=== PATIENT | female | born 1955 | race Caucasian/White ===

== ENCOUNTER 2017-07-12 18:05 | Emergency (ER) | payer MEDICARE, MEDICAID ==
[2017-07-12] MEDS ORDERED: methylPREDNISolone 125 MG* 2 ML VIAL IV ONE (18:50)
[2017-07-12] MEDS ORDERED: Albuterol/Ipratropium NEB.SOL* Albuterol 2.5 MG/Ipratropium 0.5 MG 3 ML INH ONE (18:50)
[2017-07-12 19:14] LABS: ABS Basophils 0 10^3/ul (0-0.2); ABS Eosinophils 0.3 10^3/ul (0-0.6); ABS Monocytes 0.6 10^3/ul (0-0.8); ABS Neutrophils 2.8 10^3/ul (1.5-7.7); ABS Nucleated RBC 0 10^3/ul; Eosinophil % 4.7 % (0-6); Hematocrit 44 % (35-47); Hemoglobin 14.9 g/dl (12.0-16.0); Lymphocyte % 34.2 % (25-47); Mean Corpuscular HGB Conc 34 g/dl (31-36); Mean Corpuscular Hemoglobin 33 pg (27-31); Mean Corpuscular Volume 98 fL (80-97); Mean Platelet Volume 6.9 um3 (7.4-10.4); Nucleated Red Blood Cells % 0; Platelet Count 192 10^3/ul (150-450); Red Blood Count 4.54 10^6/ul (4.0-5.4); Red Cell Distribution Width 15 % (10.5-15); White Blood Count 5.8 10^3/ul (3.5-10.8)
[2017-07-12 19:19] LABS: INR 0.94 (0.77-1.02)
--- NOTE | 2017-07-12 20:15 | RAD ---
HISTORY: Shortness of breath COMPARISONS: April 20, 2015 VIEWS: 1: frontal portable view of the chest at 8:21 PM FINDINGS: LINES AND TUBES: None. CARDIOMEDIASTINAL SILHOUETTE: The aorta is tortuous. The cardiomediastinal silhouette is otherwise normal for portable technique. PLEURA: The costophrenic angles are sharp. No pleural abnormalities are noted. LUNG PARENCHYMA: There is hyperinflation. There are stable linear opacification of the left lower lung consistent with pleuroparenchymal scarring. ABDOMEN: The upper abdomen is clear. There is no subphrenic gas. BONES AND SOFT TISSUES: No bone or soft tissue abnormalities are noted. IMPRESSION: HYPERINFLATION. NO ACTIVE CARDIOPULMONARY DISEASE.
[2017-07-12 20:43] VITALS: BP 118/80
--- NOTE | 2017-07-12 20:46 | ED ---
Hilaria Majano Elizabeth, scribed for Valdez Linares on 07/12/17 at 1911 . Respiratory - HPI Summary HPI Summary: The patient is a 61 year old female complaining of fatigue and productive cough. Patient has had an upper respiratory infection for about 1 month. She uses oxygen at home at night. Patient has a history of COPD and asthma. - History of Current Complaint Chief Complaint: EDUpperRespComplaint Stated Complaint: SICK Time Seen by Provider: 07/12/17 18:41 Hx Obtained From: Patient, Family/Crystal Mounter - Patient's daughter Onset/Duration: Lasting Weeks, Still Present Current Severity: Mild Pain Intensity: 5 Character: Wheezing, Cough (Productive) Sputum Amount: Moderate Sputum Color: Strong Aggravating Factor(s): URI Associated Signs and Symptoms: Edema, URI - Allergy/Home Medications Allergies/Adverse Reactions: Allergies Allergy/AdvReac Type Severity Reaction Status Date / Time adhesive tape Allergy Hives Verified 07/12/17 18:07 aspirin Allergy Hives Verified 07/12/17 18:07 Penicillins Allergy Anaphylatic Verified 07/12/17 18:07 Shock phenytoin [From Dilantin] Allergy Hives Verified 07/12/17 18:07 PMH/Surg Hx/FS Hx/Imm Hx Endocrine/Hematology History: Denies: Hx Diabetes Cardiovascular History: Reports: Hx Hypertension Respiratory History: Reports: Hx Asthma - USES AN INHLAER, Other Respiratory Problems/Disorders - USES O2 2 L CONTINOUS History: Denies: Hx Acute Renal Failure, Hx Chronic Renal Failure Sensory History: Reports: Hx Cataracts - CATARACT LEFT EY, Hx Contacts or Glasses, Hx Deafness - Pt cant verify which side is deaf Denies: Hx Hearing Aid Opthamlomology History: Reports: Hx Cataracts - CATARACT LEFT EY, Hx Contacts or Glasses Neurological History: Reports: Hx Migraine, Hx Seizures - BRAIN ANEURYSM 1989 Psychiatric History: Reports: Hx Anxiety - Cancer History Hx Chemotherapy: No Hx Radiation Therapy: No - Surgical History Surgery Procedure, Year, and Place: CHOLECYESCTOMY [facility] [place] CMCT & A CMCGASTRIC STAPLE [facility] ABDOMINOPLATY [facility] BRAIN SURGERY [place] Hx Anesthesia Reactions: No - Immunization History Date of Tetanus Vaccine: PT STATES UNSURE Date of Influenza Vaccine: PT STATES UNSURE Infectious Disease History: No Infectious Disease History: Denies: Traveled Outside the [place] in Last 30 Days - Social History Alcohol Use: Weekly Substance Use Type: Reports: Marijuana Smoking Status (MU): Current Some Day Smoker Review of Systems Positive: Fatigue. Negative: Fever Positive: Cough Positive: Edema - pedal edema All Other Systems Reviewed And Are Negative: Yes Physical Exam - Summary Physical Exam Summary: Appearance: Well appearing, no pain distress Skin: warm, dry, reflects adequate perfusion Head/face: normal Eyes: EOMI, CHET ENT: normal Neck: supple, non-tender Respiratory: bilateral wheeze, breath sounds present Cardiovascular: RRR, pulses symmetrical Abdomen: non-tender, soft Bowel: present Musculoskeletal: mild pedal edema, strength/ROM intact Neuro: normal, sensory motor intact, A&Ox3 Triage Information Reviewed: Yes Vital Signs On Initial Exam: Initial Vitals Temp Pulse Resp BP Pulse Ox 97.9 F 103 16 114/58 97 07/12/17 18:10 07/12/17 18:10 07/12/17 18:10 07/12/17 18:10 07/12/17 18:10 Vital Signs Reviewed: Yes Diagnostics - Vital Signs Vital Signs Temp Pulse Resp BP Pulse Ox 07/12/17 18:10 97.9 F 103 16 114/58 97 - Laboratory Lab Results: Lab Results 07/12/17 07/12/17 07/12/17 Range/Units 19:04 19:04 19:04 WBC 5.8 (3.5-10.8) 10^3/ul RBC 4.54 (4.0-5.4) 10^6/ul Hgb 14.9 (12.0-16.0) g/dl Hct 44 (35-47) % MCV 98 H (80-97) fL MCH 33 H (27-31) pg MCHC 34 (31-36) g/dl RDW 15 (10.5-15) % Plt Count 192 (150-450) 10^3/ul MPV 6.9 L (7.4-10.4) um3 Neut % (Auto) 49.3 (38-83) % Lymph % (Auto) 34.2 (25-47) % [place] % (Auto) 11.1 H (0-7) % Eos % (Auto) 4.7 (0-6) % Baso % (Auto) 0.7 (0-2) % Absolute Neuts (auto) 2.8 (1.5-7.7) 10^3/ul Absolute Lymphs (auto) 2.0 (1.0-4.8) 10^3/ul Absolute Monos (auto) 0.6 (0-0.8) 10^3/ul Absolute Eos (auto) 0.3 (0-0.6) 10^3/ul Absolute Basos (auto) 0 (0-0.2) 10^3/ul Absolute Nucleated RBC 0 10^3/ul Nucleated RBC % 0 INR (Anticoag Therapy) (0.77-1.02) Patient Temperature ABG pH (7.35-7.45) ABG pH (Temp Correct) ABG pCO2 (35-45) mmHg ABG pCO2 (Temp Corrct ABG pO2 (80-100) mmHg ABG pO2 (Temp Correct ABG HCO3 (19-31) mmol/L ABG O2 Saturation (95-98) % ABG Base Excess (-2.0-2.0) Respiration Rate O2 Delivery Device Ventilator Type Vent Mode FiO2 Inspiratory Time PEEP Pressure Support Pressure Control EPAP IPAP BiPAP Sodium 137 (133-145) mmol/L Potassium 4.0 (3.5-5.0) mmol/L Chloride 105 (101-111) mmol/L Carbon Dioxide 28 (22-32) mmol/L Anion Gap 4 (2-11) mmol/L BUN 8 (6-24) mg/dL Creatinine 0.75 (0.51-0.95) mg/dL Est GFR ( Amer) 100.4 (>60) Est GFR (Non-Af Amer) 78.0 (>60) BUN/Creatinine Ratio 10.7 (8-20) Glucose 116 H (70-100) mg/dL Calcium 9.1 (8.6-10.3) mg/dL Total Bilirubin 0.50 (0.2-1.0) mg/dL AST 28 (13-39) U/L ALT 18 (7-52) U/L Alkaline Phosphatase 250 H (34-104) U/L Troponin I 0.00 (<0.04) ng/mL B-Natriuretic Peptide 30 ( - 100) pg/mL Total Protein 6.3 L (6.4-8.9) g/dL Albumin 3.5 (3.2-5.2) g/dL Globulin 2.8 (2-4) g/dL Albumin/Globulin Ratio 1.3 (1-3) 07/12/17 07/12/17 Range/Units 19:04 19:35 WBC (3.5-10.8) 10^3/ul RBC (4.0-5.4) 10^6/ul Hgb (12.0-16.0) g/dl Hct (35-47) % MCV (80-97) fL MCH (27-31) pg MCHC (31-36) g/dl RDW (10.5-15) % Plt Count (150-450) 10^3/ul MPV (7.4-10.4) um3 Neut % (Auto) (38-83) % Lymph % (Auto) (25-47) % [place] % (Auto) (0-7) % Eos % (Auto) (0-6) % Baso % (Auto) (0-2) % Absolute Neuts (auto) (1.5-7.7) 10^3/ul Absolute Lymphs (auto) (1.0-4.8) 10^3/ul Absolute Monos (auto) (0-0.8) 10^3/ul Absolute Eos (auto) (0-0.6) 10^3/ul Absolute Basos (auto) (0-0.2) 10^3/ul Absolute Nucleated RBC 10^3/ul Nucleated RBC % INR (Anticoag Therapy) 0.94 (0.77-1.02) Patient Temperature Not Reportable ABG pH 7.33 L (7.35-7.45) ABG pH (Temp Correct) Not Reportable ABG pCO2 46 H (35-45) mmHg ABG pCO2 (Temp Corrct Not Reportable ABG pO2 64 L (80-100) mmHg ABG pO2 (Temp Correct Not Reportable ABG HCO3 23.1 (19-31) mmol/L ABG O2 Saturation 93.9 L (95-98) % ABG Base Excess -2.0 (-2.0-2.0) Respiration Rate Not Reportable O2 Delivery Device 8lpm (neb tx) Ventilator Type Not Reportable Vent Mode Not Reportable FiO2 Not Reportable Inspiratory Time Not Reportable PEEP Not Reportable Pressure Support Not Reportable Pressure Control Not Reportable EPAP Not Reportable IPAP Not Reportable BiPAP Not Reportable Sodium (133-145) mmol/L Potassium (3.5-5.0) mmol/L Chloride (101-111) mmol/L Carbon Dioxide (22-32) mmol/L Anion Gap (2-11) mmol/L BUN (6-24) mg/dL Creatinine (0.51-0.95) mg/dL Est GFR ( Amer) (>60) Est GFR (Non-Af Amer) (>60) BUN/Creatinine Ratio (8-20) Glucose (70-100) mg/dL Calcium (8.6-10.3) mg/dL Total Bilirubin (0.2-1.0) mg/dL AST (13-39) U/L ALT (7-52) U/L Alkaline Phosphatase (34-104) U/L Troponin I (<0.04) ng/mL B-Natriuretic Peptide ( - 100) pg/mL Total Protein (6.4-8.9) g/dL Albumin (3.2-5.2) g/dL Globulin (2-4) g/dL Albumin/Globulin Ratio (1-3) Result Diagrams: 07/12/17 19:04 07/12/17 19:04 Lab Statement: Any lab studies that have been ordered have been reviewed, and results considered in the medical decision making process. - Radiology CXR Xray Interpretation: No Acute Changes - IMPRESSION: HYPERINFLATION. NO ACTIVE CARDIOPULMONARY DISEASE. Dr. Linares has reviewed this report. Radiology Interpretation Completed By: Radiologist - EKG 19:03 Cardiac Rate: NL - at 91 bpm EKG Rhythm: Sinus Rhythm ST Segment: Normal EKG Interpretation: NSR, no acute changes Disposition - Course Course Of Treatment: The patient presented with URI. EKG reveals NSR at 91 bpm with no acute changes. CXR negative. Dr. Linares has reviewed this radiology report. Bloodwork obtained. In the ED course the patient was given albuterol and solu-medrol. Patient will be discharged home with diagnosis of exacerbation of her COPD and bronchitis. Patient is instructed to follow up with her primary care physician in 3 days. The patient is agreeable with this plan. - Differential Dx - Cardiopulmonary Differential Diagnoses - Cardiopulmonary: Asthma, Bronchitis, Exacerbation Of COPD, Lower Resp Infection - Diagnoses Provider Diagnoses: COPD exacerbation, Bronchitis Discharge - Sign-Out/Discharge Documenting (check all that apply): Discharge - discharge home - Discharge Plan Condition: Stable Disposition: HOME Prescriptions: predniSONE TAB* [Deltasone TAB*] 40 mg PO DAILY #5 tab Patient Education Materials: Acute Bronchitis (ED), COPD (Chronic Obstructive Pulmonary Disease) (ED) Referrals: Santy Martin MD [Primary Care Provider] - 3 Days Additional Instructions: follow up with primary care physician in 3 days. Return to the emergency department when any new or worsening symptoms. - Billing Disposition and Condition Condition: STABLE Disposition: HOME The documentation as recorded by the Hilaria moore Elizabeth accurately reflects the service I personally performed and the decisions made by , Valdez Linares.
== END 2017-07-12 20:33 | disposition home or self-care (01) ==
LOC: ED 18:05
DX: J44.1 Chronic obstructive pulmonary disease with (acute) exacerbation (principal); J20.9 Acute bronchitis, unspecified; J44.0 Chronic obstructive pulmonary disease with (acute) lower respiratory infection; R53.83 Other fatigue; R05 Cough; R50.9 Fever, unspecified; R60.9 Edema, unspecified; Z72.0 Tobacco use
CPT/HCPCS: 36415; 36600; 71045; 80053; 82803; 83880; 84484; 85025; 85610; 93005; 94640; 96374; 99283; 99285; A9270-GY; J2930

== ENCOUNTER 2017-12-19 18:42 | Emergency (ER) | payer MEDICARE, MEDICAID ==
--- OUTSIDE RECORDS SUMMARY | 2017-12-19 18:50 | XMS REPORT ---
:1955 External Reference #:[id number] Author Organization [employer] Address [address] [place] [address] Phone [phone] Care Team Providers Name Role Phone Santy Martin MD Primary Care Physician Unavailable Payers Type Date Identification Numbers Payment Provider Subscriber Medicare Primary Effective: Policy Number: Medicare Clover Anaya 1994 [id number] PayID: [id number] [address] [place] [address] [facility] Part B Policy Number: [id number] Medicaid [employer] Name: 1 [address] PayID: [id number] [place] [address] Problems Date Description Provider Status Onset: 10/04/2011 Nonspecific(Abnormal)Findings On Elisa Smith D.O. Active Radiological,Intrathoracic Onset: 11/06/2011 Difficulty breathing Elisa Smith D.O. Active Onset: 05/13/2012 Benign essential hypertension Elisa Smith D.O. Active Onset: 11/10/2015 Essential hypertension Samuel Ford M.D. Active Family History Date Family Member(s) Problem(s) Comments First Sister due to [place] () - 08/21/11 Social History Type Date Description Comments Marital Status Lives With Alone Occupation Disabled ETOH Use Occasionally consumes alcohol Smoking Patient is a current smoker, smokes 1/2 pack daily every day Daily Caffeine Consumes on average 4 cups of regular coffee per day Exercise Type/Frequency Exercises sporadically walking 1Xweek Allergies, Adverse Reactions, Alerts Date Description Reaction Status Severity Comments 09/23/2011 Penicillins active 09/23/2011 Dilantin rash active 09/23/2011 Aspirin rash active 09/23/2011 Tape active Medications Medication Date Status Form Strength Qnty SIG Indications Ordering Provider Topamax 04/16 Active Tablets 50mg 150ta 2 tabs by Lucian Baeza /Jeri bs mouth Bliss, every M.D. morning and 3 tabs by mouth every night at bedtime Metoprolol 10/26 Active Tablets ER 25mg 30tab take 1 Samuel D. Succinate ER /2012 24HR s tablet by Brand, mouth once M.D. daily Cymbalta Active Caps DR 60mg 30cap 2 po qam Unknown / Part s Imodium A-D Active Chewtabs 2mg 1 po tid prn Flonase Active Suspension 50mcg/Act 1unit 1 spray Unknown /0000 s bid as directed Multivitamins Active Tablets 100.0 1 po qd Unknown /0000 0tabs Perforomist Active Nebulizer 20mcg/2ML 180un 1 Unknown /0000 its treatment bid Ipratropium Active Solution 0.03% 30ml 1 unit Unknown [place] /0000 nebulized qid Ativan Active Tablets 1mg 2tabs 1 tab po Unknown /0000 bid prn Albuterol Active Nebulizer (2.5mg/3M 1 vial via Unknown Sulfate /0000 L) 0.083% nebulizer 4 times daily as needed Proair HFA Active Aerosol 108(90Bas 1unit 2 puffs by Unknown /0000 e) s mouth mcg/Act every 4 hours as needed Hydroxyzine HCL Active Tablets 25mg 2 po qhs Breiman, /0000 prn (pt MD Santy states she is not using) Oxygen Active Misc 1unit 3 L qhs, Unknown /0000 s as needed during day Meclizine HCL Active Tablets 25mg Take 1 To Unknown /0000 2 Tablets AT Bedtime Until Symptoms Resolve Eszopiclone Active Tablets 3mg qd / Cyclobenzaprine Active Tablets 10mg take 1 Unknown HCL /0000 tablet three times a day if needed for Muscle Spasm Ibuprofen Active Tablets 600mg 1 by mouth Unknown / three times a day as needed Codeine Sulfate 02/03 Hx Tablets 30mg 16tab 1 to 2 s twice a Dimitry, - day as M.D. 09/17 migraine max 2 days/week Lisinopril 11/05 Hx Tablets 5mg 30tab 1 tablet s by mouth Luis, - daily D.O. 09/17 Toprol XL 10/03 Hx Tablets ER 25mg 30tab 1 tablet 24HR s by mouth Luis, - daily D.O. 10/26 Vicodin Hx Tablets 5-500mg 60tab 1-2 by Unknown / s mouth - every 12h 08/18 needed pain Xanax Hx Tablets 0.25mg 20tab two by Unknown / s mouth bid - as needed 05/12 anxiety Lunesta Hx Tablets 3mg 30tab one tab hs s - 07/18 Cozaar Hx Tablets 50mg 1 po qd Unknown / - 10/03 Meclizine HCL Hx Chewtabs 25mg 2 po q Unknown / a.m., 1 po - @ hs 11/04 Lasix Hx Tablets 20mg 30tab 1 po qd / s - 09/17 Singulair Hx Tablets 10mg 30tab 1 po qd / s - 10/20 Albuterol Hx Aerosol 90mcg/Act 1unit 2 puffs po / s qid prn - 08/18 Lisinopril Hx Tablets 20mg 90tab 1 po qd / s - 11/05 Topamax Hx Tablets 100mg 75tab 1 by mouth Lucian S. / s every Dimitry, - morning M.D. 04/16 and 04/22 every night at bedtime Topamax Hx Tablets 25mg 60tab 2 po q Lucian S. /0000 s a.mDelia Moraes - M.Cholo 03/02 Lorazepam Hx Tablets 0.5mg 30tab take 1 Unknown /0000 s tablet by - mouth 07/20 three x a day for anxiety Ativan 00 Hx Tablets 0.5mg 90tab 1 po tid Unknown /0000 s prn - 08/18 Hydrocodone-Acet Hx Tablets 5-325mg 40tab 1 by mouth Unknown aminophen /0000 s every 12 - hours prn. 02/03 Trazodone HCL Hx Tablets 50mg 2 tablet Unknown /0000 at bedtime - as needed 11/17 Bactrim Hx Tablets 400-80mg 1 tab by Unknown /0000 mouth - twice a Lorazepam Hx Tablets 1mg as needed Unknown /0000 - 11/08 Butalbital/Aceta Hx Capsules 50-300-40 1 by mouth Unknown minophen/Caffein /0000 mg q 6 hours e - as needed 11/05 migraines. Vital Signs Date Vital Result Comment 02/13/2017 Height 63 inches 5'3" Weight 191.00 lb Heart Rate 80 /min BP Systolic Sitting 128 mmHg BP Diastolic Sitting 88 mmHg BMI (Body Mass Index) 33.8 kg/m2 11/06/2016 Height 63 inches 5'3" Weight 192.31 lb without shoes Heart Rate 80 /min BP Systolic Sitting 120 mmHg Rue lg cuff BP Diastolic Sitting 66 mmHg Rue lg cuff BP Systolic Standing 106 mmHg Rue lg cuff BP Diastolic Standing 70 mmHg Rue lg cuff Respiratory Rate 17 /min BMI (Body Mass Index) 34.1 kg/m2 Ejection Fraction 55-60% date 08/24/13 ECHO 11/10/2015 Height 63 inches 5'3" Weight 186.50 lb w/o shoes Heart Rate 84 /min BP Systolic Sitting 136 mmHg LA lrg cuff BP Diastolic Sitting 80 mmHg LA lrg cuff BP Systolic Standing 122 mmHg LA lrg cuff BP Diastolic Standing 76 mmHg LA lrg cuff Respiratory Rate 18 /min BMI (Body Mass Index) 33.0 kg/m2 Ejection Fraction 55% - 60% echo 08/24/13 09/19/2015 Height 63 inches 5'3" Weight 187.00 lb Heart Rate 68 /min BP Systolic Sitting 126 mmHg BP Diastolic Sitting 80 mmHg Respiratory Rate 18 /min BMI (Body Mass Index) 33.1 kg/m2 02/03/2015 Height 63 inches 5'3" Weight 187.00 lb Heart Rate 72 /min BP Systolic Sitting 112 mmHg BP Diastolic Sitting 80 mmHg Respiratory Rate 14 /min BMI (Body Mass Index) 33.1 kg/m2 11/18/2014 Height 63 inches 5'3" Weight 190.00 lb no shoes Heart Rate 80 /min BP Systolic Sitting 114 mmHg LA, Lg cuff BP Diastolic Sitting 76 mmHg LA, Lg cuff BP Systolic Standing 112 mmHg LA BP Diastolic Standing 74 mmHg LA Respiratory Rate 16 /min BMI (Body Mass Index) 33.7 kg/m2 Ejection Fraction 55-60% 08/24/2013 07/19/2014 Height 63 inches 5'3" Weight 198.00 lb Heart Rate 68 /min BP Systolic Sitting 126 mmHg BP Diastolic Sitting 84 mmHg Respiratory Rate 16 /min BMI (Body Mass Index) 35.1 kg/m2 10/27/2013 Height 63 inches 5'3" Weight 193.00 lb Heart Rate 112 /min BP Systolic Sitting 124 mmHg Ra large cuff BP Diastolic Sitting 84 mmHg Ra large cuff BP Systolic Standing 114 mmHg Ra BP Diastolic Standing 80 mmHg Ra Respiratory Rate 16 /min BMI (Body Mass Index) 34.2 kg/m2 08/18/2013 Height 63 inches 5'3" Weight 198.00 lb Heart Rate 80 /min BP Systolic Sitting 136 mmHg BP Diastolic Sitting 70 mmHg Respiratory Rate 20 /min BMI (Body Mass Index) 35.1 kg/m2 03/02/2013 Heart Rate 66 /min BP Systolic Sitting 112 mmHg BP Diastolic Sitting 72 mmHg Respiratory Rate 20 /min 11/04/2012 Height 63 inches 5'3" Weight 249.25 lb Heart Rate 72 /min BP Systolic Sitting 98 mmHg BP Diastolic Sitting 68 mmHg BMI (Body Mass Index) 44.1 kg/m2 05/13/2012 Height 63 inches 5'3" Weight 250.50 lb Heart Rate 76 /min Regular BP Systolic Sitting 118 mmHg BP Diastolic Sitting 72 mmHg BMI (Body Mass Index) 44.4 kg/m2 05/12/2012 Heart Rate 88 /min BP Systolic 148 mmHg BP Diastolic 88 mmHg Respiratory Rate 20 /min 11/06/2011 Height 63 inches 5'3" Weight 244.25 lb Heart Rate 80 /min Regular BP Systolic Sitting 108 mmHg BP Diastolic Sitting 70 mmHg BMI (Body Mass Index) 43.3 kg/m2 10/04/2011 Height 63 inches 5'3" Weight 248.75 lb Heart Rate 92 /min BP Systolic Sitting 110 mmHg BP Diastolic Sitting 66 mmHg BMI (Body Mass Index) 44.1 kg/m2 Results Test Date Test Result H/L Range Note Laboratory test finding 07/19/2014 Blood Urea Nitrogen 17 mg/dL 6-24 Creatinine 07/19/2014 Creatinine 0.97 mg/dL High 0.51-0.95 Egfr Non- 58.6 >60 Egfr 75.3 >60 1 Lipid Profile (Trig/Chol/HDL) 10/07/2011 Triglyceride 193 mg/dL 40-200 Cholesterol 221 mg/dL High Less Than 200 2 High Density Lipoprotein 67 mg/dL High 40-60 3 Cholesterol/HDL Ratio 3.30 AVERAGE 1-4.44 Low Density Lipoprotein 115 mg/dL High Less Than 100 4 Laboratory test finding 10/07/2011 Alt (SGPT) 47 U/L 14-54 Ast (Sgot) 37 U/L 12-42 1 Because ethnic data is not always readily available, this report includes an eGFR for both -Americans and non- Americans. The National Kidney Disease Education Program (NKDEP) does not endorse the use of the MDRD equation for patients that are not between the ages of 18 and 70, are , have extremes of body size, muscle mass, or nutritional status, or are non- or non-. According to the National Kidney Foundation, irrespective of diagnosis, the stage of the disease is based on the level of kidney function: Stage Description GFR(mL/min/1.73 m(2)) 1 Kidney damage with normal or decreased GFR 90 2 Kidney damage with mild decrease in GFR 60-89 3 Moderate decrease in GFR 30-59 4 Severe decrease in GFR 15-29 5 Kidney failure <15 (or dialysis) 2 CHOLESTEROL INTERPRETATION: Desirable: Less than 200 MG/DL Borderline-High Risk: 200-239 MG/DL High-Risk: 240 MG/DL and over 3 HDL INTERPRETATION: Undesirable: High Risk: Less than 40 MG/DL Desirable: Low Risk: Greater than 60 MG/DL 4 LDL INTERPRETATION: Low Risk Optimal Level: LDL Less than 100 MG/DL Near or Above Optimal: LDL 100-129 MG/DL Borderline High Risk: LDL 130-159 MG/DL High Risk: LDL 160-189 MG/DL Very High Risk: LDL Greater than 189 MG/DL Procedures Date CPT Code Description Status 11/06/2016 83187 EKG Tracing & Interpretation Completed 11/10/2015 93962 EKG Tracing & Interpretation Completed 11/18/2014 52094 EKG Tracing & Interpretation Completed 10/27/2013 06181 EKG Tracing & Interpretation Completed 08/24/2013 94232 ECHO Transthoracic, Real-Time 2D With Doppler And Color Completed Flow 11/06/2012 81800 ECHO Transthoracic, Real-Time 2D With Doppler And Color Completed Flow 12/03/2011 15278 Treadmill Interp/Report Only Completed 12/03/2011 29001 Stress Test Supervsn W/Out I/R Completed Encounters Type Date Location Provider CPT E/M Dx Office Visit 02/13/2017 [facility] Lucian Moraes, 53427 G40.209 10:30a [place] G43.009 Office Visit 11/06/2016 10:30a [facility] [address] Samuel Ford, 477[address] I10 M.DDelia Z72.0 J43.9 Office Visit 11/10/2015 10:00a [facility] [address] Samuel Ford, 17658 I10 M.DDelia Z72.0 Office Visit 09/19/2015 11:00a [facility] Lucian Moraes 78561 G40.209 Services Of Nelson Floyd G43.009 Office Visit 04/22/2015 1:25p [facility], Javed Sheldon, 77677 R41.0 Hospitalists [place] I95.2 N17.9 G40.909 Office Visit 04/21/2015 2:37p [facility] [place] [address] R41.82 Office Visit 04/21/2015 1:24p [facility],rachel Sheldon, 60878 R41.0 Hospitalists M.DDelia I95.2 N17.9 G40.909 Office Visit 04/20/2015 1:23p [facility],[place] [address] R41.0 Hospitalists I95.2 N17.9 G40.909 Office Visit 02/03/2015 11:45a [facility] Lucian Moraes 16187 G40.209 Services Of Canary Breeder M.D. I67.1 G43.009 Office Visit 11/18/2014 11:30a [facility] Cholo Ford, 36320 401.1 Canary Breeder M.D. 786.09 Office Visit 07/19/2014 2:15p [facility] Lucian JackelynDelia Moraes, 09783 345.40 Services Of Canary Breeder M.D. 346.10 437.3 Office Visit 10/27/2013 11:30a [facility] [place], 48803 401.1 Canary Breeder M.D. 414.01 Office Visit 08/18/2013 3:15p [facility] Lucian Moraes, 76296 345.40 Services Of Canary Breeder M.D. 346.10 Office Visit 03/02/2013 10:45a [facility] Lucian Moraes, 11004 345.40 Services Of Canary Breeder M.D. 346.11 V12.49 Office Visit 11/04/2012 11:20a [facility] Elisa Smith D.O. 30839 786.09 782.3 401.1 272.4 496 Office Visit 05/13/2012 11:00a [facility] Elisa Smith D.O. 47368 401.1 786.09 272.4 496 Office Visit 05/12/2012 10:45a [facility] Lucian Moraes, 70035 345.40 Services Of Canary Breeder M.D. 333.1 Office Visit 11/06/2011 2:40p [facility] Elisa Smith D.O. 74654 786.09 401.9 496 272.4 Office Visit 10/04/2011 9:40a [facility] Elisa Smith D.O. 99446 401.9 785.2 496 278.00 Plan of Care Future Appointment(s):02/06/2018 2:30 pm - Lucian Moraes M.D. at [id number]/13/2017 - Lucian Moraes M.D.G40.209 Local-rel symptc epi w cmplx prt seiz,not ntrct,w/o stat epiFollow up:1 YEARG43.009 Migraine w/o aura, not intractable, w/o status migrainosus
[2017-12-19 18:57] VITALS: BP 111/65
[2017-12-19] MEDS ORDERED: Lidocaine 1% MPF wEPI 200,000* 30 ML SDV INJ ONE (19:36)
--- NOTE | 2017-12-19 19:37 | ED ---
Head Injury - HPI Summary HPI Summary: 62 female presents with head injury today. She states that she tripped on the curb and slipped backwards. States she has history of issues with her balance and falls alot. fall was a mechanical fall. She denies any chest pain or shortness breath. No vomiting. No dizziness. She denies any neck pain. She does have a laceration to her skull. She believes her tetanus is up-to-date. She is not on blood thinners. She has no history of aneurysm and has clips in her brain. She is a family history of aneurysms. - History Of Current Complaint Chief Complaint: EDHeadInjury Stated Complaint: FALL/HEAD LAC Time Seen by Provider: 12/19/17 18:58 Pain Intensity: 10 - Allergies/Home Medications Allergies/Adverse Reactions: Allergies Allergy/AdvReac Type Severity Reaction Status Date / Time adhesive tape Allergy Hives Verified 07/12/17 18:07 aspirin Allergy Hives Verified 07/12/17 18:07 Penicillins Allergy Anaphylatic Verified 07/12/17 18:07 Shock phenytoin [From Dilantin] Allergy Hives Verified 07/12/17 18:07 PMH/Surg Hx/FS Hx/Imm Hx Endocrine/Hematology History: Denies: Hx Anticoagulant Therapy, Hx Diabetes Cardiovascular History: Reports: Hx Hypertension Respiratory History: Reports: Hx Asthma - USES AN INHLAER, Hx Chronic Obstructive Pulmonary Disease (COPD), Other Respiratory Problems/Disorders - USES O2 2 L CONTINOUS History: Denies: Hx Acute Renal Failure, Hx Chronic Renal Failure Sensory History: Reports: Hx Cataracts - CATARACT LEFT EY, Hx Contacts or Glasses, Hx Deafness - Pt cant verify which side is deaf Denies: Hx Hearing Aid Opthamlomology History: Reports: Hx Cataracts - CATARACT LEFT EY, Hx Contacts or Glasses Neurological History: Reports: Hx Migraine, Hx Seizures - BRAIN ANEURYSM 1989 Psychiatric History: Reports: Hx Anxiety - Cancer History Hx Chemotherapy: No Hx Radiation Therapy: No - Surgical History Surgery Procedure, Year, and Place: CHOLE[place]OMY [facility] [place] [facility] & A CMCGASTRIC STAP[facility] [place]OM[place]AT[place] [facility] [place] Hx Anesthesia Reactions: No - Immunization History Date of Tetanus Vaccine: PT STATES UNSURE Date of Influenza Vaccine: PT STATES UNSURE Infectious Disease History: No Infectious Disease History: Denies: Traveled Outside the [place] in Last 30 Days - Social History Alcohol Use: Weekly Substance Use Type: Reports: Marijuana Smoking Status (MU): Current Some Day Smoker Review of Systems Negative: Fever Negative: Chest Pain Negative: Shortness Of Breath Positive: Other - scalp laceration Positive: Headache All Other Systems Reviewed And Are Negative: Yes Physical Exam Triage Information Reviewed: Yes Vital Signs On Initial Exam: Initial Vitals Temp Pulse Resp BP Pulse Ox 97.6 F 81 17 111/65 92 12/19/17 18:53 12/19/17 18:53 12/19/17 18:53 12/19/17 18:53 12/19/17 18:53 Vital Signs Reviewed: Yes Appearance: Positive: Well-Appearing Skin: Positive: Warm, Dry, Other - 4cm by 1/2cm posterior scalp laceration Head/Face: Positive: Normal Head/Face Inspection Eyes: Positive: Normal, Conjunctiva Clear ENT: Positive: Pharynx normal Respiratory/Lung Sounds: Positive: Clear to Auscultation, Breath Sounds Present Cardiovascular: Positive: Normal, RRR Abdomen Description: Positive: Nontender, Soft Bowel Sounds: Positive: Present Musculoskeletal: Positive: Normal Neurological: Positive: Sensory/Motor Intact, Alert, Oriented to Person Place, Time, CN Intact II-III Psychiatric: Positive: Normal - [place] Coma Scale Best Eye Response: 4 - Spontaneous Best Motor Response: 6 - Obeys Commands Best Verbal Response: 5 - Oriented Coma Scale Total: 15 Procedures - Laceration/Wound Repair 1 Location: Other - scalp laceration Description: Irregular Anesthesia: Local, 1.0%, Epi Length, Depth and Shape: 4cm by 1/2cm Irrigated w/ Saline (ccs): 100 Laceration/Wound Explored: no foreign body removed Closure: [place] #__ - 5 Diagnostics - Vital Signs Vital Signs Temp Pulse Resp BP Pulse Ox 12/19/17 18:53 97.6 F 81 17 111/65 92 - Laboratory Lab Statement: Any lab studies that have been ordered have been reviewed, and results considered in the medical decision making process. - CT brain CT Interpretation: No Acute Changes CT Interpretation Completed By: Radiologist neck CT Interpretation: No Acute Changes CT Interpretation Completed By: Radiologist Head Injury Course/Dx Course Of Treatment: 62 female presents with head injury today. She states that she tripped on the curb and slipped backwards. States she has history of issues with her balance and falls alot. fall was a mechanical fall. She denies any chest pain or shortness breath. No vomiting. No dizziness. She denies any neck pain. She does have a laceration to her skull. She believes her tetanus is up-to-date. She is not on blood thinners. She has no history of aneurysm and has clips in her brain. She is a family history of aneurysms. On exam normal neuro exam. Has a 4 cm laceration to posterior scalp. Clean area and placed 5 vicente. With clips in brain got CT. CT shows no bleed. Gave concussion precautions. Told to have vicente removed in 7 days. Patient understands agrees with plan. - Diagnoses Differential Diagnosis/HQI/PQRI: Concussion Without LOC, Contusion, Intracranial Bleed, Laceration Provider Diagnoses: Head injury, Scalp laceration Discharge - Sign-Out/Discharge Documenting (check all that apply): Patient Departure - Discharge Plan Condition: Good Disposition: HOME Patient Education Materials: Head Injury (ED), Staple Care (ED) Referrals: Santy Martin MD [Primary Care Provider] - Additional Instructions: Take Tylenol for pain every 6 hours Do not scrub staple area Return to ED, urgent care or primary in 7 days to have vicente removed Follow up with primary within 5 days Return to ED if develop signs of infection or any new or worsening symptoms - Billing Disposition and Condition Condition: GOOD Disposition: Home
[2017-12-19] MEDS ORDERED: Lidocaine 2% EPI 1:200000 MPF*10-20 ML VIAL ONE (19:44)
--- NOTE | 2017-12-19 20:16 | RAD ---
EXAM: CT Head Without Intravenous Contrast CLINICAL HISTORY: 62 years old, female; Injury or trauma; Fall; Prior surgery; Surgery date: 6+ months; Surgery type: HX brain aneurysm; Patient HX: Lac to back of head TECHNIQUE: Axial computed tomography images of the head/brain without intravenous contrast. All CT scans at this facility use at least one of these dose optimization techniques: automated exposure control; mA and/or kV adjustment per patient size (includes targeted exams where dose is matched to clinical indication); or iterative reconstruction. COMPARISON: BRAIN WO CT BRAIN WO 04/20/2015 10:00 PM FINDINGS: Brain: See below. Ventricles: No intracranial bleed, suspicious mass, or mass effect. Ventricles appear unremarkable. Bones/joints: Right craniotomy and aneurysm clipping. Limited chronic small vessel ischemic type change. Soft tissues: Scalp laceration posteriorly on the right. No skull fracture. Sinuses: Unremarkable as visualized. No acute sinusitis. Mastoid air cells: Unremarkable as visualized. No mastoid effusion. Other findings: Right maxillary antral window. IMPRESSION: 1. No intracranial bleed, suspicious mass, or mass effect. Ventricles appear unremarkable. 2. Scalp laceration posteriorly on the right. No skull fracture.
--- NOTE | 2017-12-19 20:25 | RAD ---
EXAM: CT Cervical Spine Without Intravenous Contrast CLINICAL HISTORY: 62 years old, female; Injury or trauma; Fall; Initial encounter; Laceration; Without foreign body TECHNIQUE: Axial computed tomography images of the cervical spine without intravenous contrast. All CT scans at this facility use at least one of these dose optimization techniques: automated exposure control; mA and/or kV adjustment per patient size (includes targeted exams where dose is matched to clinical indication); or iterative reconstruction. Coronal and sagittal reformatted images were created and reviewed. COMPARISON: No relevant prior studies available. FINDINGS: Vertebrae: No fracture or subluxation. Straightening of normal cervical lordosis. This can indicate muscle spasm, or be voluntary positioning. Discs/spinal canal/neural foramina: Mild degenerative change without critical stenosis. Soft tissues: Unremarkable. Lung apices: Unremarkable as visualized. IMPRESSION: 1. No fracture or subluxation. 2. Straightening of normal cervical lordosis. This can indicate muscle spasm, or be voluntary positioning.
== END 2017-12-19 20:46 | disposition home or self-care (01) ==
LOC: ED 18:42
DX: S01.01XA Laceration without foreign body of scalp, initial encounter (principal); S09.90XA Unspecified injury of head, initial encounter; W01.0XXA Fall on same level from slipping, tripping and stumbling without subsequent striking against object, initial encounter; Z91.81 History of falling; Y93.01 Activity, walking, marching and hiking; Y92.480 Sidewalk as the place of occurrence of the external cause; J45.909 Unspecified asthma, uncomplicated; Z88.6 Allergy status to analgesic agent; Z88.0 Allergy status to penicillin; Z88.8 Allergy status to other drugs, medicaments and biological substances; Z91.048 Other nonmedicinal substance allergy status; Z72.0 Tobacco use
CPT/HCPCS: 12002; 70450; 72125; 99282; J2001

== ENCOUNTER 2019-01-21 09:21 | Emergency (ER) | payer MEDICARE, MEDICAID ==
--- NOTE | 2019-01-21 10:29 | ED ---
Complex/Multi-Sys Presentation - HPI Summary HPI Summary: 63 year old F presenting to [facility] from home where she lives alone, accompanied by sister Tanna, complains of jaundice since this morning. Patient states that her daughter noticed jaundice this morning. Patient states she has not noticed the jaundice herself. Patient states she has never had jaundice before. Patient denies any known problems with her liver. Patient reports diarrhea for the last 2 weeks, last episode of diarrhea was 3 days ago. Patient reports dark urine. She denies abdominal pain. Last normal bowel movement was yesterday which was formed, kelly stools, no bloody stools. Patient reports headache which she states is normal. Patient states hx brain aneurysm more than 10 years ago after which she developed hx seizure. Patient states that in August 2018, she started taking Topamax then switched to generic one topiramide and has had some problems with that, but her last seizure was years old. Her neurologist is Dr. Moraes. Patient reports erythema and edema of bilateral lower extremities, and she isn't sure for how long. Sister states patient has hx falls. She denies fever, chest pain, shortness of breath. Sister states patient hasn't worn her at home oxygen in 2 weeks because it is broken. Patient states she has hx COPD. The patient rates the pain 9/10 in severity per nurse triage note. Symptoms aggravated by nothing. Symptoms alleviated by nothing. Vital signs while in room: HR 96 bpm, BP 110/72, O2 sat 96% Home Medications Medication Instructions Recorded Confirmed Type Albuterol HFA INHALER* [Ventolin 1 puff INH QID PRN 09/16/12 01/21/19 History HFA Inhaler*] Loperamide HCl [Imodium A-D] 2 mg PO TID PRN 09/16/12 01/21/19 History Metoprolol Succinate XL TAB* 25 mg PO DAILY 09/16/12 01/21/19 History [Toprol XL TAB*] Topiramate [Topamax] 100 mg PO DAILY 09/16/12 01/21/19 History Cyclobenzaprine TAB* 10 mg PO TID PRN 04/20/15 01/21/19 History Meclizine TAB* 25 mg PO BEDTIME PRN 04/20/15 01/21/19 History Topamax 100 MG(*) 150 mg PO BEDTIME 04/20/15 01/21/19 History - History Of Current Complaint Chief Complaint: EDGeneral Time Seen by Provider: 01/21/19 10:14 Hx Obtained From: Patient, Family/Invasive Cardiovascular Technologist - sister, daughter Onset/Duration: Lasting Days, Lasting Weeks, Still Present Timing: Constant Severity Currently: Severe - 12/29 Aggravating Factor(s): Nothing Alleviating Factor(s): Nothing Associated Signs And Symptoms: Positive: Diarrhea, Other - diarrhea, dark urine , kelly stools, headache, erythema and edema of bilateral lower extremities; NEG : bloody stools, fever, chest pain, shortness of breath. Negative: Abdominal Pain, Hematemesis, Melena, Fever - Allergies/Home Medications Allergies/Adverse Reactions: Allergies Allergy/AdvReac Type Severity Reaction Status Date / Time adhesive tape Allergy Hives Verified 01/21/19 09:34 aspirin Allergy Hives Verified 01/21/19 09:34 Penicillins Allergy Anaphylatic Verified 01/21/19 09:34 Shock phenytoin [From Dilantin] Allergy Hives Verified 01/21/19 09:34 PMH/Surg Hx/FS Hx/Imm Hx Previously Healthy: No Endocrine/Hematology History: Denies: Hx Anticoagulant Therapy, Hx Diabetes Cardiovascular History: Reports: Hx Hypertension Respiratory History: Reports: Hx Asthma - USES AN INHLAER, Hx Chronic Obstructive Pulmonary Disease (COPD), Other Respiratory Problems/Disorders - USES O2 2 L CONTINOUS GI History: Denies: Hx Gall Bladder Disease History: Denies: Hx Acute Renal Failure, Hx Chronic Renal Failure Sensory History: Reports: Hx Cataracts - CATARACT LEFT EY, Hx Contacts or Glasses, Hx Deafness - Pt cant verify which side is deaf Denies: Hx Hearing Aid Opthamlomology History: Reports: Hx Cataracts - CATARACT LEFT EY, Hx Contacts or Glasses Neurological History: Reports: Hx Migraine, Hx Seizures - BRAIN ANEURYSM 1989 Psychiatric History: Reports: Hx Anxiety - Cancer History Hx Chemotherapy: No Hx Radiation Therapy: No - Surgical History Surgery Procedure, Year, and Place: [facility], [facility]LE [facility], [facility], [place] [place] Hx Anesthesia Reactions: No - Immunization History Date of Tetanus Vaccine: PT STATES UNSURE Date of Influenza Vaccine: PT STATES UNSURE Immunizations Up to Date: Unable to Obtain/Confirm Infectious Disease History: No Infectious Disease History: Denies: Traveled Outside the [place] in Last 30 Days - Family History Known Family History: Positive: Other - Breast CA in sister and aunt - Social History Lives: Alone Alcohol Use: Weekly Hx Substance Use: Yes Substance Use Type: Reports: Marijuana Hx Tobacco Use: Yes Smoking Status (MU): Current Some Day Smoker Review of Systems Negative: Fever Negative: Chest Pain Negative: Shortness Of Breath Gastrointestinal: Negative - bloody stools Positive: Diarrhea, Other - kelly stools. Negative: Abdominal Pain, Vomiting Positive: other - dark urine Positive: Other - erythema and edema of bilateral lower extremities Positive: Other - jaundice, bilateral lower leg erythema Positive: Headache Psychological: Normal All Other Systems Reviewed And Are Negative: Yes Physical Exam - Summary Physical Exam Summary: Appearance: Well-appearing, minimal pain distress due to headache, well- nourished Skin: Warm, color reflects adequate perfusion, dry, jaundice, bilateral anterior tibia with shiny redness with the right worse than the left Head: Jaundice Eyes: Conjunctiva icteric ENT: Normal inspection, no icterus, mucous membranes moist Neck: Supple, no nodes, no JVD Respiratory: Lungs clear, normal breath sounds, no respiratory distress Cardio: RRR, No murmur, pulses normal, brisk capillary refill Abdomen: Soft, nontender, no rebound, no guarding, no masses, non-distended Bowel sounds: Present Musculoskeletal: Strength Intact/ROM intact, no calf tenderness, edema 2+, ecchymosis on her left lateral femur Psychological: Normal Neuro: Alert, muscle tone normal, no focal deficit Triage Information Reviewed: Yes Vital Signs On Initial Exam: Initial Vitals Temp Pulse Resp BP Pulse Ox 98.0 F 111 18 117/86 96 01/21/19 09:30 01/21/19 09:30 01/21/19 09:30 01/21/19 09:30 01/21/19 09:30 Vital Signs Reviewed: Yes Procedures - Sedation Patient Received Moderate/Deep Sedation with Procedure: No Diagnostics - Vital Signs Vital Signs Temp Pulse Resp BP Pulse Ox 01/21/19 09:54 99 110/75 97 01/21/19 09:53 104 98 01/21/19 09:30 98.0 F 111 18 117/86 96 - Laboratory Result Diagrams: 01/21/19 11:22 01/21/19 11:22 Lab Statement: Any lab studies that have been ordered have been reviewed, and results considered in the medical decision making process. - CT Abdomen/Pelvis CT Interpretation Completed By: Radiologist Summary of CT Findings: 1. THERE IS SEVERE BILIARY DILATATION EXTENDING TO THE LEVEL OF THE AMPULLA. 2. THERE IS NO APPRECIABLE PANCREATIC HEAD MASS, THOUGH THERE IS MILD PANCREATIC DUCTAL DILATATION. 3. ADDITIONALLY, THE PATIENT IS STATUS POST GASTRIC BYPASS. THE BYPASSED STOMACH REMNANT AND DUODENUM APPEAR ABNORMAL WITH MUCOSAL THICKENING. WHILE THIS MAY BE INFLAMMATORY, NEOPLASM IS WITHIN THE DIFFERENTIAL. 4. THE DIFFERENTIAL FOR THE BILIARY DILATATION INCLUDES OCCULT NEOPLASM OR STONE. RECOMMEND CONSIDERATION OF FURTHER EVALUATION WITH ULTRASOUND AND/OR MRCP. 5. ATHEROSCLEROSIS. ED physician has reviewed this report. Re-Evaluation - Re-Evaluation First Eval Re-Evaluation Time: 11:56 Change: Unchanged Comment: patient advised of bilirubin results. she states no new symptoms. she is drinking for the CT scan Second Eval Re-Evaluation Time: 15:25 Change: Unchanged Comment: continues to have no pain. states she's hungry. understands need for transfer Complex Multi-Symp Course/Dx Course Of Treatment: 63 year old F presenting to [facility] complains of jaundice since this morning. Patient reports diarrhea for the last 2 weeks. She reports kelly stools. Patient reports erythema and edema of bilateral lower extremities. Upon exam, the patient is well-appearing, in minimal pain distress. She has jaundice, bilateral anterior tibia with shiny redness with the right worse than the left, edema 2+, and ecchymosis on her left lateral femur. Patient medications reviewed this visit. Nurses notes reviewed. Allergies noted. Bloodwork results with no significant abnormalities except for RBC 3.64, MCV 105 , MCH 37, reactive lymphs % 11, APTT 38.2, potassium 3.3, chloride 97, carbon dioxide 33, calcium 8.4, magnesium 1.7, total bilirubin 12.3, direct bilirubin 7.3, indirect bilirubin 5, AST 93, alkaline phosphatase 1154, CRP 92.79, total protein 4.8, albumin 2.7, amylase 13. Urinalysis results with no significant abnormalities except for trace leukocyte esterase, WBC 1+, and present squamous epithelial cells. CT Abd/Pel shows, per radiologist: 1. THERE IS SEVERE BILIARY DILATATION EXTENDING TO THE LEVEL OF THE AMPULLA. 2. THERE IS NO APPRECIABLE PANCREATIC HEAD MASS, THOUGH THERE IS MILD PANCREATIC DUCTAL DILATATION. 3. ADDITIONALLY, THE PATIENT IS STATUS POST GASTRIC BYPASS. THE BYPASSED STOMACH REMNANT AND DUODENUM APPEAR ABNORMAL WITH MUCOSAL THICKENING. WHILE THIS MAY BE INFLAMMATORY, NEOPLASM IS WITHIN THE DIFFERENTIAL. 4. THE DIFFERENTIAL FOR THE BILIARY DILATATION INCLUDES OCCULT NEOPLASM OR STONE. RECOMMEND CONSIDERATION OF FURTHER EVALUATION WITH ULTRASOUND AND/OR MRCP. 5. ATHEROSCLEROSIS. In the ED course, the patient was given potassium tab PO, magnesium IV. Spoke with DAY Monte, at 15:22 who recommends transferring patient because we don't have ERCP. Transfer to [facility] initiated at 15: 24. Spoke with Dr. Orourke [facility]ist at 15:42, who agrees to accept patient. The patient will be transferred to [facility]. The patient is agreeable with this plan. - Diagnoses Provider Diagnoses: Painless jaundice, Bilateral cellulitis of lower leg - Physician Notifications Discussed Care Of Patient With: Geovani Reyes Time Discussed With Above Provider: 15:22 Instructed by Provider To: Other - DAY Monte, recommends transferring patient because we don't have ERCP. Spoke with Dr. Orourke [facility] at 15:42, who agrees to accept patient. Discharge ED - Sign-Out/Discharge Documenting (check all that apply): [facility]arture [facility] - Discharge Plan Condition: Stable Disposition: TRANS HIGHER LVL OF CARE FAC Referrals: Santy Martin MD [Primary Care Provider] - 2 Days Additional Instructions: Return to the emergency department for new or worsening symptoms. - Billing Disposition and Condition Condition: STABLE Disposition: Trans Higher Lvl of Care Fac - Attestation Statements Document Initiated by Catarina: Yes Documenting Scribe: Yoon Storm Provider For Whom Catarina is Documenting (Include Credential): Peace Edgar MD Scribe Attestation: Yoon Majano, scribed for Peace Edgar MD on 01/21/19 at 1711. Scribe Documentation Reviewed: Yes Provider Attestation: The documentation as recorded by the Yoon moore accurately reflects the service I personally performed and the decisions made by me, Peace Edgar MD Status of Scribe Document: Viewed
[2019-01-21 11:42] LABS: Activated Partial Thrombo Time 38.2 seconds (26.0-38.0); Hematocrit 38 % (35-47); Hemoglobin 13.3 g/dL (12.0-16.0); INR 1.05 (0.82-1.09); Mean Corpuscular HGB Conc 35 g/dL (31-36); Mean Corpuscular Hemoglobin 37 pg (27-31); Mean Corpuscular Volume 105 fL (80-97); Mean Platelet Volume 7.7 fL (7.4-10.4); Platelet Count 425 10^3/uL (150-450); Red Blood Count 3.64 10^6 /uL (3.70-4.87); Red Cell Distribution Width 15 % (10-15); White Blood Count 9.6 10^3/uL (3.5-10.8)
[2019-01-21 11:50] LABS: Albumin 2.7 g/dL (3.2-5.2); Albumin/Globulin Ratio 1.3 (1-3); BUN/Creatinine Ratio 18.9 (8-20); C Reactive Protein 92.79 mg/L (<8.01); Calcium 8.4 mg/dL (8.6-10.3); EGFR African American 140.1 (>60); EGFR Non-African American 115.8 (>60); Globulin 2.1 g/dL (2-4); Magnesium 1.7 mg/dL (1.9-2.7); Total Protein 4.8 g/dL (6.4-8.9)
[2019-01-21 11:54] LABS: Total Bilirubin 12.3 mg/dL (0.2-1.0)
[2019-01-21 12:03] LABS: ABS Basophils 0.1 10^3/ul (0-0.2); ABS Eosinophils 0.3 10^3/ul (0-0.6)
[2019-01-21 12:46] LABS: Potassium 3.3 mmol/L (3.5-5.0)
[2019-01-21] MEDS ORDERED: Potassium Chlor TAB* 20 MEQ TAB.ER PO ONE (13:47)
[2019-01-21] MEDS ORDERED: Magnesium Sulfate 1 GM IV* 1 GM/100 ML BAG IV ONE (13:48)
[2019-01-21] MEDS ORDERED: Iohexol 300* (CONTRAST) 10 ML SDV IV ONE (13:53)
[2019-01-21 15:36] LABS: Urine Appearance Clear; Urine Bacteria Absent (Absent); Urine Bilirubin Negative (Negative); Urine Blood Negative (Negative); Urine Color Amber; Urine Glucose Negative (Negative); Urine Ketones Negative (Negative); Urine Nitrite Negative (Negative); Urine Protein Negative (Negative); Urine Red Blood Cell Absent (Absent); Urine Squamous Epithelial Cell Present (Absent); Urine Urobilinogen Negative (Negative); Urine White Blood Cell 1+(6-10/hpf) (Absent)
[2019-01-21 18:16] VITALS: BP 132/72
--- NOTE | 2019-01-23 06:16 | ED ---
Imaging and Labs Follow Up Follow Up Type: Labs/Cultures Labs/Culture Result: Urine - e coli Patient Communication/Plan: pt transferred to [facility] - will fax results today, on 01/23 Provider Diagnoses: Painless jaundice, Bilateral cellulitis of lower leg
== END 2019-01-21 18:30 | disposition short-term general hospital (02) ==
LOC: ED 09:21
DX: R17 Unspecified jaundice (principal); L03.116 Cellulitis of left lower limb; L03.115 Cellulitis of right lower limb; J44.9 Chronic obstructive pulmonary disease, unspecified; I70.0 Atherosclerosis of aorta; F17.200 Nicotine dependence, unspecified, uncomplicated; I10 Essential (primary) hypertension; G43.909 Migraine, unspecified, not intractable, without status migrainosus; F41.9 Anxiety disorder, unspecified; Z90.49 Acquired absence of other specified parts of digestive tract; Z99.81 Dependence on supplemental oxygen; Z79.899 Other long term (current) drug therapy; Z98.84 Bariatric surgery status; Z88.6 Allergy status to analgesic agent; Z88.0 Allergy status to penicillin; Z88.8 Allergy status to other drugs, medicaments and biological substances
CPT/HCPCS: 36415; 74177; 80053; 81003; 81015; 82150; 82247; 82248; 83605; 83690; 83735; 85025; 85610; 85730; 86140; 87077; 87086; 87186; 96365; 99284; A9270-GY; J3475; Q9967

== ENCOUNTER 2019-02-14 18:40 | Emergency (ER) | payer MEDICARE, MEDICAID ==
[2019-02-14] MEDS ORDERED: NS 0.9% 1000 ML** 1,000 ML IV.FLUID IV ONE (19:15)
[2019-02-14 19:52] LABS: ABS Basophils 0.2 10^3/ul (0-0.2); ABS Eosinophils 0.3 10^3/ul (0-0.6); ABS Lymphocytes 3.5 10^3/ul (1.0-4.8); ABS Monocytes 0.9 10^3/ul (0-0.8); ABS Neutrophils 7.7 10^3/ul (1.5-7.7); Eosinophil % 2.6 %; Hematocrit 39 % (35-47); Hemoglobin 13.6 g/dL (12.0-16.0); Lymphocyte % 28.2 %; Mean Corpuscular HGB Conc 35 g/dL (31-36); Mean Corpuscular Hemoglobin 34 pg (27-31); Mean Corpuscular Volume 99 fL (80-97); Mean Platelet Volume 7.7 fL (7.4-10.4); Platelet Count 592 10^3/uL (150-450); Red Blood Count 3.97 10^6 /uL (3.70-4.87); Red Cell Distribution Width 14 % (10-15); White Blood Count 12.6 10^3/uL (3.5-10.8)
[2019-02-14 20:01] LABS: Activated Partial Thrombo Time 67.8 seconds (26.0-38.0); INR 3.74 (0.82-1.09)
[2019-02-14 20:07] LABS: Albumin 3.9 g/dL (3.2-5.2); Albumin/Globulin Ratio 1.2 (1-3); BUN/Creatinine Ratio 21.9 (8-20); Calcium 9.4 mg/dL (8.6-10.3); EGFR African American 26.5 (>60); EGFR Non-African American 21.9 (>60); Globulin 3.3 g/dL (2-4); Potassium 3.8 mmol/L (3.5-5.0); Total Bilirubin 3.3 mg/dL (0.2-1.0); Total Protein 7.2 g/dL (6.4-8.9)
--- NOTE | 2019-02-14 20:14 | ED ---
ED Suture/Wound Check - HPI Summary HPI Summary: This patient is a 63 year old F w hx recent biliary stent placed at [facility] for biliary duct dilation [facility] accompanied by daughter and granddaughter with a chief complaint of malodorous bile since this morning, . Daughter reports pt came to [facility] 01/21/19 for jaundice but was sent to [facility] for ER[facility]. Reportedly, because of her bypass, the doctors could not get to the gallbladder so she had a stent placed. Daughter reports hx Sepsis during her hospital stay for which she was on abx. Daughter reports there was a concern that her "organs were inflamed" for which she was referred to cancer specialist who she is supposed to see in 4 days. Pt finished abx 6 days ago. Pt lost 30 pounds recently. Daughter reports she has been checking bile everyday (usually empties it 3x a day which has recently been decreasing) and at 1208 this morning the bile was smelly along with the two times after at 1000 and 1600. Hx Seizure disorder. Daughter also reports urine has been very concentrated recently (not as dark as when she was jaundice though). - History Of Current Complaint Chief Complaint: EDGeneral Stated Complaint: GENERAL PER PT Time Seen by Provider: 02/14/19 19:15 Hx Obtained From: Family/[employer] - daughter Onset/Duration: Still Present Severity: Mild Pain Intensity: 0 Pain Scale Used: 0-10 Numeric - Allergies/Home Medications Allergies/Adverse Reactions: Allergies Allergy/AdvReac Type Severity Reaction Status Date / Time adhesive tape Allergy Hives Verified 01/21/19 09:34 aspirin Allergy Hives Verified 01/21/19 09:34 Penicillins Allergy Anaphylatic Verified 01/21/19 09:34 Shock phenytoin [From Dilantin] Allergy Hives Verified 01/21/19 09:34 Home Medications: Home Medications Cyclobenzaprine TAB* [Flexeril 10 MG TAB*] 10 mg PO TID PRN 02/14/19 [History Confirmed 02/14/19] DULoxetine CAP* [Cymbalta CAP*] 120 mg PO DAILY 02/14/19 [History Confirmed 02/14/19] Loperamide CAP* [Imodium CAP*] 2 mg PO Q4H PRN 02/14/19 [History Confirmed 02/14] Meclizine TAB* [Antivert 12.5 TAB*] 25 mg PO TID PRN 02/14/19 [History Confirmed 02/14/19] Mv-Min/Iron/Folic/Calcium/Vitk [One-A-Day Women's Tablet] 1 each PO DAILY [History Confirmed 02/14/19] QUEtiapine TAB* [Seroquel 100 MG *] 100 mg PO BEDTIME 02/14/19 [History Confirmed 02/14/19] Topiramate TAB(*) [Topamax 100 mg tab] 150 mg PO BEDTIME 02/14/19 [History Confirmed 02/14/19] Torsemide TAB* [Demadex*] 10 mg PO DAILY 02/14/19 [History Confirmed 02/14/19] Warfarin Sodium 5 mg PO DAILY 02/14/19 [History Confirmed 02/14/19] PMH/Surg Hx/FS Hx/Imm Hx Endocrine/Hematology History: Denies: Hx Anticoagulant Therapy, Hx Diabetes Cardiovascular History: Reports: Hx Hypertension Respiratory History: Reports: Hx Asthma - USES AN INHLAER, Hx Chronic Obstructive Pulmonary Disease (COPD), Other Respiratory Problems/Disorders - USES O2 2 L CONTINOUS GI History: Denies: Hx Gall Bladder Disease History: Denies: Hx Acute Renal Failure, Hx Chronic Renal Failure, Hx Renal Disease Sensory History: Reports: Hx Cataracts - CATARACT LEFT EY, Hx Contacts or Glasses, Hx Deafness - Pt cant verify which side is deaf Denies: Hx Hearing Aid Opthamlomology History: Reports: Hx Cataracts - CATARACT LEFT EY, Hx Contacts or Glasses Neurological History: Reports: Hx Migraine, Hx Seizures - BRAIN ANEURYSM 1989 Psychiatric History: Reports: Hx Anxiety - Cancer History Hx Chemotherapy: No Hx Radiation Therapy: No - Surgical History Surgery Procedure, Year, and Place: [facility], [facility]IC [facility], [facility]OPLASTY [facility], BRAIN SURGERY [place] Hx Anesthesia Reactions: No - Immunization History Date of Tetanus Vaccine: PT STATES UNSURE Date of Influenza Vaccine: PT STATES UNSURE Infectious Disease History: No Infectious Disease History: Denies: Traveled Outside the [place] in Last 30 Days - Family History Known Family History: Positive: Other - Breast CA in sister and aunt - Social History Alcohol Use: Rare Hx Substance Use: No Substance Use Type: Reports: None Hx Tobacco Use: Yes Smoking Status (MU): Current Some Day Smoker Review of Systems Positive: Other - weight loss, inflamed organs. Negative: Fever Positive: Other - smelly bile Positive: Other - jaundice All Other Systems Reviewed And Are Negative: Yes Physical Exam - Summary Physical Exam Summary: Constitutional: chronically ill-appearing Skin: mildly jaundiced HENT: Normocephalic; Atraumatic Eyes: Conjunctiva normal Neck: Musculoskeletal ROM normal neck. (-) JVD, (-) Stridor, (-) Nuchal rigidity Cardio: Rhythm regular, rate normal, Heart sounds normal; Intact distal pulses; Radial pulses are 2+ and symmetric. (-) Murmur Pulmonary/Chest wall: Effort normal. (-) Respiratory distress, (-) Wheezes, (-) Rales Abd: Soft, (-) tenderness, (-) Distension, (-) Guarding, (-) Rebound, biliary drain not tender, no erythema from site. Musculoskeletal: (-) Edema Lymph: (-) Cervical adenopathy Neuro: Alert, Oriented x3 Psych: Mood and affect Normal Triage Information Reviewed: Yes Vital Signs On Initial Exam: Initial Vitals Temp Pulse Resp BP Pulse Ox 97.5 F 95 14 88/56 98 02/14/19 18:52 02/14/19 18:52 02/14/19 18:52 02/14/19 18:52 02/14/19 18:52 Vital Signs Reviewed: Yes Procedures - Sedation Patient Received Moderate/Deep Sedation with Procedure: No Diagnostics - Vital Signs Vital Signs Temp Pulse Resp BP Pulse Ox 02/14/19 19:15 99 02/14/19 18:52 97.5 F 95 14 88/56 98 - Laboratory Lab Results: Lab Results 02/14/19 02/14/19 02/14/19 Range/Units 19:38 19:38 19:38 WBC 12.6 H (3.5-10.8) 10^3/uL RBC 3.97 (3.70-4.87) 10^6 /uL Hgb 13.6 (12.0-16.0) g/dL Hct 39 (35-47) % MCV 99 H (80-97) fL MCH 34 H (27-31) pg MCHC 35 (31-36) g/dL RDW 14 (10-15) % Plt Count 592 H D (150-450) 10^3/uL MPV 7.7 (7.4-10.4) fL Neut % (Auto) 60.9 % Lymph % (Auto) 28.2 % [place] % (Auto) 7.1 % Eos % (Auto) 2.6 % Baso % (Auto) 1.2 % Absolute Neuts (auto) 7.7 (1.5-7.7) 10^3/ul Absolute Lymphs (auto) 3.5 (1.0-4.8) 10^3/ul Absolute Monos (auto) 0.9 H (0-0.8) 10^3/ul Absolute Eos (auto) 0.3 (0-0.6) 10^3/ul Absolute Basos (auto) 0.2 (0-0.2) 10^3/ul Absolute Nucleated RBC 0.0 10^3/ul Nucleated RBC % 0.0 INR (Anticoag Therapy) 3.74 H (0.82-1.09) APTT 67.8 H (26.0-38.0) seconds Sodium 127 L (135-145) mmol/L Potassium 3.8 (3.5-5.0) mmol/L Chloride 92 L (101-111) mmol/L Carbon Dioxide 20 L (22-32) mmol/L Anion Gap 15 H (2-11) mmol/L BUN 49 H (6-24) mg/dL Creatinine 2.24 H (0.51-0.95) mg/dL Est GFR ( Amer) 26.5 (>60) Est GFR (Non-Af Amer) 21.9 (>60) BUN/Creatinine Ratio 21.9 H (8-20) Glucose 104 H (70-100) mg/dL Lactic Acid (0.5-2.0) mmol/L Calcium 9.4 (8.6-10.3) mg/dL Total Bilirubin 3.30 H (0.2-1.0) mg/dL AST 26 (13-39) U/L ALT 19 (7-52) U/L Alkaline Phosphatase 263 H (34-104) U/L Troponin I Pending Total Protein 7.2 (6.4-8.9) g/dL Albumin 3.9 (3.2-5.2) g/dL Globulin 3.3 (2-4) g/dL Albumin/Globulin Ratio 1.2 (1-3) 02/14/19 Range/Units 19:38 WBC (3.5-10.8) 10^3/uL RBC (3.70-4.87) 10^6 /uL Hgb (12.0-16.0) g/dL Hct (35-47) % MCV (80-97) fL MCH (27-31) pg MCHC (31-36) g/dL RDW (10-15) % Plt Count (150-450) 10^3/uL MPV (7.4-10.4) fL Neut % (Auto) % Lymph % (Auto) % [place] % (Auto) % Eos % (Auto) % Baso % (Auto) % Absolute Neuts (auto) (1.5-7.7) 10^3/ul Absolute Lymphs (auto) (1.0-4.8) 10^3/ul Absolute Monos (auto) (0-0.8) 10^3/ul Absolute Eos (auto) (0-0.6) 10^3/ul Absolute Basos (auto) (0-0.2) 10^3/ul Absolute Nucleated RBC 10^3/ul Nucleated RBC % INR (Anticoag Therapy) (0.82-1.09) APTT (26.0-38.0) seconds Sodium (135-145) mmol/L Potassium (3.5-5.0) mmol/L Chloride (101-111) mmol/L Carbon Dioxide (22-32) mmol/L Anion Gap (2-11) mmol/L BUN (6-24) mg/dL Creatinine (0.51-0.95) mg/dL Est GFR ( Amer) (>60) Est GFR (Non-Af Amer) (>60) BUN/Creatinine Ratio (8-20) Glucose (70-100) mg/dL Lactic Acid 1.7 (0.5-2.0) mmol/L Calcium (8.6-10.3) mg/dL Total Bilirubin (0.2-1.0) mg/dL AST (13-39) U/L ALT (7-52) U/L Alkaline Phosphatase (34-104) U/L Troponin I Total Protein (6.4-8.9) g/dL Albumin (3.2-5.2) g/dL Globulin (2-4) g/dL Albumin/Globulin Ratio (1-3) Result Diagrams: 02/14/19 19:38 02/14/19 19:38 Lab Statement: Any lab studies that have been ordered have been reviewed, and results considered in the medical decision making process. Re-Evaluation - Re-Evaluation First Eval Re-Evaluation Time: 10:45 Comment: Updated family on neg CT, plan for transfer to [facility] for GI. Course/Dx - Course Course Of Treatment: 63-year-old female with a history of COPD, brain aneurysm, seizures, recent admit at [facility] for jaundice and severe biliary dilation , now s/p biliary drain placement p/w fould smelling wound drainage and fatigue. On arrival to ED, blood pressure soft 80s over 60s, however normal on repeat. Given 1 L IVF slowly given that she is on lasix. BC and LA ordered. Will hold on abx. Do not suspect septic at this point (afebrile, no infectious complaints, drain site clean). PE w chronically ill-appearing female, abdomen soft, biliary drain and abdomen draining brown green tinged fluid. Labs notable for sodium 127, elevated 2.2 from baseline of normal. Unclear cause of elevated creatinine (possibly dehydration given poor PO intake), but given fatigue, recent admission for biliary pathology, and low sodium plan for admission to hospital. - Clinical Impression Provider Diagnoses: RODNEY (acute kidney injury), History of biliary stent insertion - Physician Notifications Discussed Care Of Patient With: Radha Puri Time Discussed With Above Provider: 20:22 Instructed by Provider To: Transfer - wishes to have a CT done. At 22:45 she states patient should be transferred as Dr. Kee is not comfortable taking her here if she needs additional procedures. Will plan for transfer to [facility]. Reason For Transfer: Specialty or service not available at [facility]. Discharge ED - Sign-Out/Discharge Documenting (check all that apply): Sign-Out Patient Signing out patient TO: Hetal Lynn - pending transfer to - Discharge Plan - Attestation Statements Document Initiated by Scribe: Yes Documenting Scribe: Mere Mcguire Provider For Whom Scribe is Documenting (Include Credential): Dr. Sam Benavides MD Scribe Attestation: I, Mere Mcguire, scribed for Dr. Sam Benavides MD on 02/14/19 at 2332. Scribe Documentation Reviewed: Yes Provider Attestation: The documentation as recorded by the scribe, Mere Mcguire accurately reflects the service I personally performed and the decisions made by me, Dr. Sam Benavides MD Status of Scribe Document: Viewed
[2019-02-14] MEDS ORDERED: Aztreonam (*) 1 GM in NS 0.9% 50 ML* 50 ML IVPB ONE (22:45)
[2019-02-14] MEDS ORDERED: Lactated Ringers 1000 ML Bag* 1,000 ML IV SCH (23:00)
--- NOTE | 2019-02-15 | ED ---
Progress - Progress Note Progress Note: Pt is a signout from Dr. Benavides at 2300 on 02/14/19 pending transfer. Re-Evaluation - Re-Evaluation First Eval Re-Evaluation Time: 23:50 Change: Unchanged Comment: I spoke with [facility] about the possibility for transfer who denied the pt. 2nd re-eval Re-Evaluation Time: 00:30 Change: Unchanged Comment: I spoke with Dr. Quigley, hospitalist of [facility], about the pt's present condition. He will accept the pt at their facility. Course/Dx - Course Course Of Treatment: Pt is a signout from Dr. Benavides at 2300 on 02/14/19 pending transfer. I spoke with [facility] who will not be accepting the pt for transfer. I spoke with Dr. Puri at 0002 who will not be accepting the pt to [facility]. I will now try to speak with the hospitalist at [facility]. I spoke with Dr. Quigley at 0030, hospitalist of [facility], about the pt's present condition. He will accept the pt at their facility. - Diagnoses Provider Diagnoses: RODNEY (acute kidney injury), History of biliary stent insertion - Provider Notifications Time Discussed With Above Provider: 20:22 Instructed by Provider To: Transfer - wishes to have a CT done. At 22:45 she states patient should be transferred as Dr. Kee is not comfortable taking her here if she needs additional procedures. Will plan for transfer to [facility]. Reason For Transfer: Specialty or service not available at [facility]. Discharge ED - Sign-Out/Discharge Documenting (check all that apply): Receiving Sign-Out Receiving patient FROM: Sam Benavides - Discharge Plan - Attestation Statements Document Initiated by Scribe: Yes Documenting Scribe: Bernadette Augustin Provider For Whom Scribe is Documenting (Include Credential): Hetal Lynn MD. Scribe Attestation: Bernadette Majano, scribed for Hetal Lynn MD. on 02/15/19 at 0035.
[2019-02-15] MEDS ORDERED: NS 0.9% 1000 ML** 1,000 ML IV ONE (01:06)
[2019-02-15 02:20] VITALS: BP 100/54
--- NOTE | 2019-02-15 04:52 | CONS ---
CC: Dr. Martin CONSULTATION REPORT: DATE OF CONSULT: 02/14/19 TIME OF EVALUATION: 10:20 p.m. PRIMARY CARE PROVIDER: Dr. Martin. CHIEF COMPLAINT: "She is weak" as per daughter. HISTORY OF PRESENT ILLNESS: Mrs. Anaya is a 63-year-old female with a past medical history of COPD who initially presented to [facility] on 01/21/19 with complaints of jaundice. She was found to have severe biliary dilatation extending to the level of the ampulla and she was transferred from the emergency room to [facility] for further evaluation and possible ERCP. There are no records available at this time, but as per the patient's daughter, an ERCP was attempted and it was not successful as the patient had a Mao-en-Y in the past. She was diagnosed with E. coli septicemia, treated with aztreonam and clindamycin. She had a percutaneous drain placed and there was report of possible malignancy, suspected pancreatic. She had an appointment scheduled with oncology at [facility] next week. She was discharged from [facility] to [facility], where she completed her treatment with aztreonam and clindamycin 1 week ago and was discharged home. As per the daughter, the patient was initially doing better, had more energy, but as the week went by, they noticed that she was weaker with poor appetite, not drinking fluids, not even coffee which her daughter thought was unusual. The patient's daughter has been taking care of her percutaneous drain and she states that for the past 48 hours, the drainage has increased, up to 300 mL each time they drain it and the bile drain is now "smelly." She states that earlier this week the bile did not have a smell. There is no fever, chills, cough, chest pain, nausea, vomiting. The patient has diarrhea, but the daughter states that this has been present all along and she has been taking Imodium for it. The patient has also lost a significant amount of weight; as per daughter more than 40 pounds that she thinks was mostly "fluid." As per daughter, she was started on torsemide and her edema has completely resolved and her weight was checked today. She weighed 144 pounds and reported weight on her prior ED visit was 175 pounds. PAST MEDICAL HISTORY: 1. COPD. 2. Seizure disorder. 3. Atrial fibrillation, on anticoagulation, status post Mao-en-Y. 4. Status post cholecystectomy. MEDICATION LIST: 1. Albuterol HFA 1 puff inhaled 4 times a day as needed for shortness of breath. 2. Cyclobenzaprine 10 mg p.o. t.i.d. as needed for spasms. 3. Duloxetine DR 120 mg p.o. daily. 4. Loperamide 2 mg p.o. q.4 hours p.r.n. for diarrhea. 5. Meclizine 25 mg p.o. t.i.d. as needed for vertigo. 6. Metoprolol succinate 25 mg p.o. daily. 7. Multivitamin 1 tablet p.o. daily. 8. Seroquel 100 mg p.o. at bedtime. 9. Topiramate 100 mg p.o. in the morning, 150 mg p.o. at bedtime. 10. Torsemide 10 mg p.o. daily. 11. Warfarin 5 mg p.o. daily. ALLERGIES: ADHESIVE TAPE, ASPIRIN, PENICILLIN, PHENYTOIN. FAMILY HISTORY: Both parents in motor vehicle accident. SOCIAL HISTORY: The patient was a smoker of half a pack a day for more than 30 years. Also, she smoked marijuana every few days. There was some history of alcohol use in the past. Surrogate decision maker is her daughter, Britany Lee , phone number is [phone]. REVIEW OF SYSTEMS: A 14-point review of systems was performed, and all the pertinent negative and positive findings are in the HPI. PHYSICAL EXAMINATION: Vital Signs: Temperature 97.5, heart rate 33, respiratory rate is 14, oxygen saturation is 99% on 2 L, blood pressure 112/62. General: The patient is an elderly lady who appears older than stated age, frail, lying on the ED stretcher, in no acute distress. HEENT: Pupils are equal. Moist mucous membranes. CVS: Normal S1, S2. Irregularly irregular. Chest: Breath sounds present bilaterally with no added sounds. Abdomen is soft , nontender, nondistended. Bowel sounds are present. The patient has a clean dressing over her percutaneous drain. Extremities: There are chronic skin changes of the lower extremities, but there is no pitting edema. Neuro: She is alert and oriented x3. Face is symmetric. Speech is clear. She is able to move all 4 extremities. LABORATORY AND IMAGING DATA: CBC: WBC of 12.6, hemoglobin of 13.6, hematocrit of 39, platelets of 592. INR is 3.7. Chemistry showed a sodium of 127, potassium 3.8, chloride of 92, bicarb of 20, anion gap is 15, BUN is 49, creatinine is 2.24, glucose 104, lactic acid is 1.7, calcium is 9.4. LFTs showed a total bilirubin of 3.3 with an alk phos of 263. CT of the abdomen and pelvis without contrast showed no acute findings, interval decompression of the biliary tree following insertion of percutaneous biliary drain with distal loop in the third portion of the duodenum. ASSESSMENT AND PLAN: Mrs. Anaya is a 63-year-old lady with a past medical history of chronic obstructive pulmonary disease, atrial fibrillation, status post Mao-en- Y, recent admission to [facility] for Escherichia coli septicemia secondary to cholangitis, status post percutaneous drainage placement and question of pancreatic malignancy who presents to our emergency room with complaints of weakness, found to have acute kidney injury. I suspect her symptoms are likely secondary to prerenal acute kidney injury in the setting of torsemide use and poor oral intake. There is concern for possible infection as the patient's family described that her percutaneous drain bile is "smelly." The patient is afebrile, she has no tachycardia, but she has leukocytosis at 12.6. Her CT showed resolution of the biliary distention. I discussed the case with the GI quality control tech and his recommendation was for transfer as the patient cannot have an ERCP due to her prior surgery and he feels we cannot manage her percutaneous drain in this facility in case of infection. We discussed the information that the drainage is now "smelly," if this has any implication in the setting of infection and it is not clear. Considering that she was very sick with Escherichia coli septicemia, we will give her 1 dose of aztreonam prior to discharge, but as per GI recommendation, the patient will be transferred from the emergency room. In the meantime, we will continue IV fluids and her torsemide should be held for now. TIME SPENT: Approximately 50 minutes were spent with the patient during interview, medical records review, and physical examination to complete this consultation, more than half of this time was spent [id number] with the patient in coordination of care. [id number]/[facility] #: [id number] MIGUEL
== END 2019-02-15 02:19 | disposition short-term general hospital (02) ==
LOC: ED 18:40 → MED 22:25 → UNDOADMIN 22:25 → ED 02-15 02:19
DX: N17.9 Acute kidney failure, unspecified (principal); G40.909 Epilepsy, unspecified, not intractable, without status epilepticus; I10 Essential (primary) hypertension; J44.9 Chronic obstructive pulmonary disease, unspecified; F41.9 Anxiety disorder, unspecified; Z96.89 Presence of other specified functional implants; Z88.0 Allergy status to penicillin; Z88.8 Allergy status to other drugs, medicaments and biological substances; Z88.6 Allergy status to analgesic agent; Z79.899 Other long term (current) drug therapy; Z99.81 Dependence on supplemental oxygen; Z90.49 Acquired absence of other specified parts of digestive tract; Z72.0 Tobacco use; Z90.710 Acquired absence of both cervix and uterus
CPT/HCPCS: 36415; 71045; 74176; 80053; 83605; 84484; 85025; 85610; 85730; 87040; 96361; 96374; 99284

== ENCOUNTER 2019-02-22 11:55 | Observation (INO) | payer MEDICARE, MEDICAID ==
--- OUTSIDE RECORDS SUMMARY | 2019-02-22 12:12 | XMS REPORT | Continuity of Care Document ---
:1955 External Reference #:[id number] Author Name Trev Guardado M.D. Address [address] [place] [address] Care Team Providers Name Role Phone [facility] Sleep Clinic - Sleep Disorder Care Team Information Agri Business Agent [phone] Diagnostic Elisa Smith - Cardiovascular Care Team Information Agri Business Agent Disease Santy Martin MD - Family Care Team Information Agri Business Agent Medicine Problems Active Problems Provider Date Chronic obstructive lung disease Irma Fallon M.D. Onset: 12/14/2010 Generalized convulsive epilepsy Irma Fallon M.D. Onset: 12/14/2010 Essential hypertension Kyra Cerrtao M.D. Onset: 05/14/2011 Chronic pain syndrome Kyra Cerrato M.D. Onset: 05/14/2011 Migraine Kyra Cerrato M.D. Onset: 05/14/2011 Insomnia Kyra Cerrato M.D. Onset: 05/14/2011 Hearing loss Kyra Cerrato M.D. Onset: 05/14/2011 Obesity Kyra Cerrato M.D. Onset: 05/14/2011 Depressive disorder Kyra Cerrato M.D. Onset: 05/14/2011 Impaired fasting glycaemia Kyra Cerrato M.D. Onset: 06/03/2011 Edema Kyra Cerrato M.D. Onset: 07/11/2011 Liver function tests abnormal Kyra Cerrato M.D. Onset: 07/11/2011 Chronic diastolic heart failure Kyra Cerrato M.D. Onset: 09/10/2011 Breast lump Kyra Cerrato M.D. Onset: 11/21/2011 Backache Santy Martin M.D. Onset: 03/24/2012 Allergic condition Santy Martin M.D. Onset: 10/06/2013 Dehydration Santy Martin M.D. Onset: 04/26/2015 Elongated styloid process syndrome DANA Urena Onset: 08/23/2015 Chronic obstructive pulmonary disease Santy Martin M.D. Onset: 2018 with (acute) exacerbation Cholangitis Trev Guardado M.D. Onset: 02/20/2019 Longstanding persistent atrial Trev Guardado M.D. Onset: 02/20/2019 fibrillation Social History Type Date Description Comments Sex Unknown Tobacco Use Start: Unknown Current Cigarette Smoker 1/2 Pack Daily ETOH Use Currently consumes alcohol 12 pk of beer a week average Tobacco Use Start: Unknown End: Patient is a former smoker Unknown Tobacco Use Start: Unknown Patient is a current smoker, smokes every day Smoking Status Reviewed: 12/30/17 Patient is a current smoker, smokes every day Allergies, Adverse Reactions, Alerts Active Allergies Reaction Severity Comments Date Penicillin 02/12/1999 Dilantin Rash 02/12/1999 Plastic Tape 07/26/2010 Medications Active Medications SIG Qnty Indications Ordering Date Provider Quetiapine Fumarate Take 1 Tablet 30tabs Santy Cordero 12/21/2018 100mg By Mouth AT [place] Martin Tablets Bedtime Acetaminophen-Codeine take 1 to 2 75tabs Robyn Cat 07/27/2018 #3 tablets by DANA 300-30mg Tablets mouth twice a day as needed for head pain maximum daily dose of 4 Duloxetine HCL take 2 capsules 180caps Santy Cordero 02/19/[address] by mouth once Everett Martin Part daily Singulair 1 by mouth 90tabs Laura Urias 12/15/2017 10mg Tablets every day BRIANNA Jorgensen Bebenitezpi Aerosphere 2 puffs bid J44.9 Santy Cordero 06/18/2017 [place] Martin 9-4.8mcg/Act Aerosol Ventolin HFA Inhale 2 Puffs 18units J44.9 Santy Cordero 10/10/2015 108(90Base) By Mouth Every Everett Martin mcg/Act Aerosol 4 Hours If Needed For Cough Meclizine HCL Take 1 To 2 60tabs Santy Cordero 07/07/2014 25mg Tablets Tablets AT [place]rett Martin Bedtime Until Symptoms Have Resolved Cyclobenzaprine HCL Take 1 Tablet 90tabs S39.012A Robyn Cat, 01/20/2014 10mg By Mouth Three [employer] Tablets Times A Day If Needed For Muscle Spasm Ra [facility] take 1 tablet 90tabs Santy Cordero 10/11/2013 once daily Everett Martin Tablets Ativan 1 by mouth 60tabs Robyn Cat, 03/31/2013 1mg Tablets twice a day for [employer] anxiety Loperamide HCL Take 1 Capsule 90caps Santy Cordero 07/27/2011 2mg Capsules By Mouth Three [place]rett Martin Times A Day If Needed Oxygen Therapy With use 2 ml/min at J44.9 Irma alexander 12/14/2010 Conserving Device ALL times dx: Everett Serra severe COPD Topamax 100 mg qam, 150 Unknown 100mg Tablets mg qpm Metoprolol Succinate ER 1 by mouth Unknown every day 25mg Tablets ER 24HR Warfarin Sodium 1/2 by mouth Unknown 5mg Tablets every day History Medications Robitussin DM 1-2 TSP Q 4H prn 4Oz 466.0 Santy Cordero 09/23/2018 - [place]rett Martin 02/20/2019 100mg;10mg/5ML Syrup Doxycycline Hyclate use 1bid 30caps Santy Cordero 09/23/2018 - 100mg Everett Martin 02/20/2019 Capsules Prednisone 3 x 5 days 2 x 5 30tabs Santy Cordero 09/23/2018 - 20mg Tablets days 1 x 5 days Everett Martin 02/20/2019 Toilet Seat Riser use on toilet for Santy Cordero 09/23/2018 - arthritis Everett Martin 02/20/2019 Zithromax 2 by mouth every 6Tabs J44.1 Irma 09/15/2018 - 250mg Tablets day today , then DANA Salas 09/23/2018 1 by mouth every day times 4 Immunizations CPT Code Status Date Vaccine Lot # [id number] Given 03/18/2018 Influenza Virus Vaccine, Recombinant Dna, [id number] [place] [address] Given 03/15/2015 Influenza Vac, Quadrivalent, Slit Virus, Im [id number] 46599 Given 03/15/2015 Pneumococcal Conjugate Vacc-13 [id number] Q2037 Given 03/24/2012 Split Influenza Medicare: Fluvirin 65352 Given 03/24/2012 DO Not Use Split Influenza Virus Vaccine [id number] Q2038 Given 02/22/2011 Split Influenza Medicare: Fluzone [id number] 62590 Given 02/22/2011 Pneumococcal Immunization [id number] 70154 Given 03/14/2010 DO Not Use Split Influenza Virus Vaccine [id number] 48297 Given 03/05/2006 DO Not Use Split Influenza Virus Vaccine [id number] 25134 Given 03/04/2006 DO Not Use Split Influenza Virus Vaccine 14863 Given 03/07/1996 Pneumococcal Immunization 75055 Given 10/28/1995 Tetanus And Diptheria Adult Preservative Free >7Yrs Vital Signs Date Vital Result Comment 02/20/2019 9:00am BP Systolic 114 mmHg BP Diastolic 70 mmHg Heart Rate 104 /min Body Temperature 97.3 F Height 62 inches 5'2" Weight 150.00 lb BMI (Body Mass Index) 27.4 kg/m2 09/23/2018 9:28am BP Systolic 98 mmHg BP Diastolic 54 mmHg Heart Rate 52 /min Body Temperature 98.2 F Respiratory Rate 20 /min Height 62 inches 5'2" Weight 176.00 lb BMI (Body Mass Index) 32.2 kg/m2 Results Test Date Facility Test Result H/L Range Note Laboratory test 02/14/2019 [facility] Blood Culture SEE RESULT 1, 2 finding BELOW CBC Auto Diff 02/14/2019 [facility] White Blood 12.6 10^3/uL High 3.5-10.8 Count Red Blood Count 3.97 10^6/uL Normal 3.70-4.87 Hemoglobin 13.6 g/dL Normal 12.0-16.0 Hematocrit 39 % Normal 35-47 Mean Corpuscular Volume 99 fL High 80-97 Mean Corpuscular Hemoglobin 34 pg High 27-31 Mean Corpuscular HGB Conc 35 g/dL Normal 31-36 Red Cell Distribution Width 14 % Normal 10-15 Platelet Count 592 10^3/uL High 150-450 Mean Platelet Volume 7.7 fL Normal 7.4-10.4 Abs Neutrophils 7.7 10^3/uL Normal 1.5-7.7 Abs Lymphocytes 3.5 10^3/uL Normal 1.0-4.8 Abs Monocytes 0.9 10^3/uL High 0-0.8 Abs Eosinophils 0.3 10^3/uL Normal 0-0.6 Abs Basophils 0.2 10^3/uL Normal 0-0.2 Abs Nucleated RBC 0.0 10^3/uL Granulocyte % 60.9 % Lymphocyte % 28.2 % Monocyte % 7.1 % Eosinophil % 2.6 % Basophil % 1.2 % Nucleated Red Blood Cells % 0.0 Inr/Protime 02/14/2019 [facility] Inr 3.74 High 0.82-1.09 3 Laboratory test 02/14/2019 [facility] Partial Thrombo 67.8 seconds High 26.0- 38.0 finding Time PTT Lactic Acid 1.7 mmol/L Normal 0.5-2.0 4 Comp Metabolic Panel 02/14/2019 [facility] Sodium 127 mmol/L Low 135-145 Potassium 3.8 mmol/L Normal 3.5-5.0 Chloride 92 mmol/L Low 101-111 Co2 Carbon Dioxide 20 mmol/L Low 22-32 Anion Gap 15 mmol/L High 2-11 Glucose 104 mg/dL High 70-100 Blood Urea Nitrogen 49 mg/dL High 6-24 Creatinine 2.24 mg/dL High 0.51-0.95 BUN/Creatinine Ratio 21.9 High 8-20 Calcium 9.4 mg/dL Normal 8.6-10.3 Total Protein 7.2 g/dL Normal 6.4-8.9 Albumin 3.9 g/dL Normal 3.2-5.2 Globulin 3.3 g/dL Normal 2-4 Albumin/Globulin Ratio 1.2 Normal 1-3 Total Bilirubin 3.30 mg/dL High 0.2-1.0 Alkaline Phosphatase 263 U/L High 34-104 Alt 19 U/L Normal 7-52 Ast 26 U/L Normal 13-39 Egfr Non- 21.9 >60 Egfr 26.5 >60 5 Laboratory test finding 02/14/2019 [facility] Troponin I 0.00 ng/mL <0.04 6 Blood Culture SEE RESULT BELOW 7 Inr/Protime 01/21/2019 [facility] Inr 1.05 Normal 0.82-1.09 8 Laboratory test 01/21/2019 [facility] Partial Thrombo 38.2 seconds High 26.0- 38.0 finding Time PTT CBC Auto Diff 01/21/2019 [facility] White Blood Count 9.6 10^3/uL Normal 3.5- 10.8 Red Blood Count 3.64 10^6/uL Low 3.70-4.87 Hemoglobin 13.3 g/dL Normal 12.0-16.0 Hematocrit 38 % Normal 35-47 Mean Corpuscular Volume 105 fL High 80-97 Mean Corpuscular Hemoglobin 37 pg High 27-31 Mean Corpuscular HGB Conc 35 g/dL Normal 31-36 Red Cell Distribution Width 15 % Normal 10-15 Platelet Count 425 10^3/uL Normal 150-450 Mean Platelet Volume 7.7 fL Normal 7.4-10.4 Manual Differential 01/21/2019 [facility] Immature Granulocytes 2.0 % Normal 0- 9 Neutrophil % 64.0 % Lymphocytes % 17.0 % Monocytes % 2.0 % Eosinophils % 3.0 % Basophil % 1.0 % Variant Lymph % 11.0 % High 0-6 Metamyelocytes % 2.0 % Normal 0-2 Macrocytosis 2+ Abs Neutrophils 6.3 10^3/uL Normal 1.5-7.7 Abs Lymphocytes 2.7 10^3/uL Normal 1.0-4.8 Abs Monocytes 0.2 10^3/uL Normal 0-0.8 Abs Eosinophils 0.3 10^3/uL Normal 0-0.6 Abs Basophils 0.1 10^3/uL Normal 0-0.2 Laboratory test finding 01/21/2019 [facility] Lactic Acid 0.5 mmol/L Normal 0.5- 2.0 9 Comp Metabolic Panel 01/21/2019 [facility] Sodium 135 mmol/L Normal 135-145 Chloride 97 mmol/L Low 101-111 Co2 Carbon Dioxide 33 mmol/L High 22-32 Glucose 82 mg/dL Normal 70-100 Blood Urea Nitrogen 10 mg/dL Normal 6-24 Creatinine 0.53 mg/dL Normal 0.51-0.95 BUN/Creatinine Ratio 18.9 Normal 8-20 Calcium 8.4 mg/dL Low 8.6-10.3 Total Protein 4.8 g/dL Low 6.4-8.9 Albumin 2.7 g/dL Low 3.2-5.2 Globulin 2.1 g/dL Normal 2-4 Albumin/Globulin Ratio 1.3 Normal 1-3 Alkaline Phosphatase 1154 U/L High 34-104 Alt 48 U/L Normal 7-52 Egfr Non- 115.8 >60 Egfr 140.1 >60 10 Total Bilirubin 12.30 mg/dL Critical high 0.2-1.0 11 Potassium 3.3 mmol/L Low 3.5-5.0 Anion Gap 5 mmol/L Normal 2-11 Ast 93 U/L High 13-39 Laboratory test finding 01/21/2019 [facility] Magnesium 1.7 mg/dL Low 1.9-2.7 Amylase 13 U/L Low 29-103 Lipase 12 U/L Normal 11.0-82.0 C Reactive Protein 92.79 mg/L High <8.01 Bilrubin And Indirect 01/21/2019 [facility] Direct Bilirubin 7.30 mg/dL High 0.03-0.18 Indirect Bilirubin 5.0 mg/dL High 0.3-1.0 Urinalysis Profile 01/21/2019 [facility] Urine Color Beverley Urine Appearance Clear Urine Specific Happy 1.020 Normal 1.010-1.030 Urine pH 6.0 Normal 5-9 Urine Urobilinogen Negative Negative Urine Ketones Negative Negative Urine Protein Negative Negative Urine Leukocytes Trace Abnormal Negative Urine Blood Negative Negative Urine Nitrite Negative Negative Urine Bilirubin Negative Negative Urine Glucose Negative Negative Urine White Blood Cell 1+(6-10/hpf) Abnormal Absent Urine Red Blood Cell Absent Absent Urine Bacteria Absent Absent Urine Squamous Epithelial Cell Present Abnormal Absent Urine Culture And Sensitivities 01/21/2019 [facility] Urine Culture SEE RESULT BELOW 12 1 Blood Culture bottle(s) are underfilled. Testing may be less sensitive due to less than recommen 2 SEE RESULT BELOW Name: SAMIA ALMONTE : [address]: Hetal Lynn MD Acct: [id number] Unit: [id number] AGE: 63 Location: ED Re02/14/19 SEX: F Status: DEP ER SPEC: [id number] ESTRELLA: 02/14/[address]: Sam Benavides MD REQ: [id number] RECD: 02/14/19 STATUS: COMP AARONHR DR: Santy Martin MD _ SOURCE: BLOOD,LINE [facility]: ORDERED: Blood Cult COMMENTS: Blood Culture bottle(s) are underfilled. Testing may be less sensitive due to less than recommended fill level. Verbal to [id number] by [id number] at 2010 on 02/14/19. Procedure Result Reported Site Aerobic Culture Bottle Final 02/19/192008 ML No Growth Day 5 Anaerobic Culture Bottle Final 02/19/192008 ML No Growth Day 5 * [facility] - Main Lab . END OF REPORT DEPARTMENT OF PATHOLOGY, [address] [place] [address] Tuan Le M.D. Director [facility] # [id number] 3 Standard intensity warfarin therapeutic range: 2.0-3.0 High intensity warfarin therapeutic range: 2.5-3.5 4 [facility] Severe Sepsis and Septic Shock Management Bundle Measure requires all lactic acids initially measuring >2.0 mmol/L be repeated. 5 Because ethnic data is not always readily [...] 15-29 5 Kidney failure <15 (or dialysis) 6 Troponin-I testing on Plasma Separator Tubes (PST) has a known false positive rate of 0.20-0.40%. All positive troponins reflex immediately to secondary confirmatory testing. Using the [employer] DxI 800 Access Immunoassay systems, the 99th percentile upper reference limit was demonstrated to be < 0.03 ng/mL. 7 SEE RESULT BELOW Name: SAMIA ALMONTE : [address]: Hetal Lynn MD Acct: [id number] Unit: [id number] AGE: 63 Location: ED Re02/14/19 SEX: F Status: DEP ER SPEC: [id number] ESTRELLA: 02/14/[address] [facility] [address]: Sam Benavides MD REQ: [id number] RECD: 02/14/19 STATUS: CASE NUGENT DR: Santy Martin MD _ SOURCE: BLOOD,VENO [facility]ESC: ORDERED: Blood Cult Procedure Result Reported Site Aerobic Culture Bottle Final 02/19/191944 ML No Growth Day 5 Anaerobic Culture Bottle Final 02/19/191942 ML No Growth Day 5 * [facility] - Main Lab . END OF REPORT DEPARTMENT OF PATHOLOGY, [address] [place] [address] Tuan Le M.D. Director [facility] # [id number] 8 Standard intensity warfarin therapeutic range: 2.0-3.0 High intensity warfarin therapeutic range: 2.5-3.5 9 [facility] Severe Sepsis and Septic Shock Management Bundle Measure requires all lactic acids initially measuring >2.0 mmol/L be repeated. 10 Because ethnic data is not always readily [...] 15-29 5 Kidney failure <15 (or dialysis) 11 Critical Result TBIL:12.30 Called to [id number] at: 11:51:53 by:[id number] Read back by:[email or web address] 12 SEE RESULT BELOW Name: SAMIA ALMONTE : [address]: Peace Edgar MD Acct: [id number] Unit: [id number] AGE: 63 Location: ED Re01/21/19 SEX: F Status: DEP ER SPEC: [id number] ESTRELLA: 01/21/[address] [facility] [address]: Peace Edgar MD REQ: [id number] RECD: 01/21/19 STATUS: CASE NUGENT DR: Santy Martin MD _ SOURCE: URINE SPDESC: ORDERED: Urine Culture Procedure Result Reported Site Urine Culture Final 01/23/19- 1021 ML Organism 1 ESCHERICHIA COLI [place] Count >100,000 (Many) CFU/ML 1. ESCHERICHIA COLI M.I.C. RX --------- ------ Ampicillin >=32 R Cefazolin 8 S Cefepime <=1 S Ceftriaxone <=1 S Ciprofloxacin >=4 R Gentamicin <=1 S Levofloxacin >=8 R Meropenem <=0.25 S Nitrofurantoin <=16 S Tetracycline 2 S Pipercillin/Tazobactam 64 I Trimethoprim/Sulfamethoxazole <=20 S Amoxicillin/Clavulanic Acid 16 I Aztreonam <=1 S Contact the Microbiology Department for any additional antibiotic reporting. * [facility] - Main Lab . END OF REPORT DEPARTMENT OF PATHOLOGY, [address] [place] [address] Tuan Le M.D. Director [facility] # [id number] Procedures Date Code Description Status 09/23/2018 71140 Pulse Oximetry Completed 08/23/2014 20966765 Mammogram Completed 05/30/2011 91380501 Mammogram Completed Medical Devices Description No Information Available Encounters Type Date Location Provider Dx Diagnosis Office Visit 02/20/2019 [facility] Trev Guardado, R60.0 Localized edema 11:30a [place] J44.9 Chronic obstructive pulmonary disease, unspecified K83.09 Other cholangitis I48.11 Longstanding persistent atrial fibrillation Office Visit 09/23/2018 9:20a Main Office Santy Cordero J44.1 Brook Martin M.D. pulmonary disease w (acute) exacerbation I10 Essential (primary) hypertension R60.0 Localized edema Office Visit 09/15/2018 1:45p Main Office DANA Albrecht R05 Cough J44.1 Chronic obstructive pulmonary disease w (acute) exacerbation I10 Essential (primary) hypertension R60.0 Localized edema Assessments Date Code Description Provider 02/20/2019 R60.0 Localized edema Trev Guardado M.D. 02/20/2019 J44.9 Chronic obstructive pulmonary disease, Trev Guardado M.D. unspecified 02/20/2019 K83.09 Other cholangitis Trev Guardado M.D. 02/20/2019 I48.11 Longstanding persistent atrial fibrillation Trev Guardado M.D. 09/23/2018 J44.1 Chronic obstructive pulmonary disease with Santy Martin M.D. (acute) exacerbat 09/23/2018 I10 Essential (primary) hypertension Santy Martin M.D. 09/23/2018 R60.0 Localized edema Santy Martin M.D. 09/15/2018 R05 Cough DANA Albrecht 09/15/2018 J44.1 Chronic obstructive pulmonary disease with DANA Albrecht (acute) exacerbat 09/15/2018 I10 Essential (primary) hypertension DANA Albrecht 09/15/2018 R60.0 Localized edema DANA Albrecht Plan of Treatment 02/20/2019 - Trev Guardado M.D.R60.0 Localized edemaNew Labs:CBC Electronic (Fma), Ordered: 02/20/19Magnesium (Fma/CMC/Centrex), Ordered: 02/20/19J44.9 Chronic obstructive pulmonary disease, [id number] Other cholangitisNew Labs:Comp Metabolic-ALL Lab Compani, Ordered: 02/20/19I48.11 Longstanding persistent atrial fibrillationNew Labs:Inr (Fma), Ordered: 02/20/19AllComments: Patient is going through a difficult time with likely a pancreatic malignancy her diagnosis is uncertain at this time. Her peripheral edema it is not critical and because her oral intake is down I do not feel she needs to restart torsemide. We'll check lab work today and have her come back to see Dr. Martin next week. Continue present medications, followup with her surgical oncologist early next week, she has an appointment for an endoscopic ultrasound and ERCP in 2 weeks Functional Status Description No Information Available Mental Status Description No Information Available Referrals Description No Information Available
--- OUTSIDE RECORDS SUMMARY | 2019-02-22 12:12 | XMS REPORT | Summary of Care ---
:1955 Author Organization [facility] Address [address] [facility] [place] [address] Care Team Providers Name Role Phone None, [place] Primary Care Provider Unavailable Reason for Referral MRI/CAT/PET Scan (Routine) Status Reason Specialty Diagnoses / Referred By Referred To Procedures Contact Contact Authorized Radiology Diagnoses Pancreatobiliary-type carcinoma (HCC) Beatriz Calixto [facility] Pet [address] Procedures PET CT SKULL TO MID THIGH INITIAL TREATMENT [address] [place] [address] [place] [address] Phone: Reason for Visit Reason Comments New Patient No Labs Encounter Details Date Type Department Care Team Description 02/18/2019 Office Visit Beatriz Srinivasan Pancreatobiliary- type Oncology MD carcinoma (HCC) [address] (Primary Dx) [place] [id number] [place] [address] Allergies Active Allergy Reactions Severity Noted Date Comments Phenytoin Sodium Hives Medium 01/21/2019 Penicillins Cardiac Reaction High 01/21/2019 Per patient heart stopped. documented as of this encounter (statuses as of 02/18/2019) Medications Medication Sig Dispensed Refills Start Date End Date Status albuterol HFA Take 2 Puffs by 0 Active (VENTOLIN HFA) 108 inhalation EVERY (90 Base) MCG/ACT FOUR HOURS Inhalation Aero Soln NEEDED (SOB). quetiapine Take 100 mg by mouth 0 Active (SEROQUEL) 100 MG EVERY BEDTIME. Oral Tab metoprolol succinate Take 25 mg by mouth 0 Active (TOPROL XL) 25 MG DAILY. Oral TABLET SR 24 HR Topiramate 50 MG Take 100 mg by mouth 0 Active Oral Tab EVERY MORNING. Topiramate 50 MG Take 150 mg by mouth 0 Active Oral Tab EVERY BEDTIME. warfarin (COUMADIN) Take 1 Tab by mouth 30 Tab 0 02/04/2019 Active 5 MG Oral Tab DAILY. documented as of this encounter (statuses as of 02/18/2019) Active Problems Problem Noted Date A-fib 02/17/2019 Encounter for aftercare for long-term (current) use of antibiotics 02/17/2019 Overview: Managed by [facility] Referred by Dr Lucas at [facility] 02/16/19 The indication for anticoagulation is: Atrial fibrillation The therapeutic range should be: 2.0 to 3.0. Additional factors influencing anticoagulation: CHADS2 score of 1 for hypertension [id number] score of 3 for age > 65, hypertension, female gender Topiramate decreases warfarin level Anticoagulant: Warfarin Dehydration 02/15/2019 Septic shock due to Escherichia coli 02/04/2019 Obstructive jaundice 02/04/2019 Ascending cholangitis 02/04/2019 nursing home (current) use of anticoagulants 02/04/2019 Overview: Patient is at [facility] Painless jaundice 01/21/2019 documented as of this encounter (statuses as of 02/18/2019) Immunizations Name Administration Dates Next Due Influenza (IM) Preservative Free 01/23/2019 documented as of this encounter Social History Tobacco Use Types Packs/Day Years Used Date Former Smoker Cigarettes 1 50 Quit: 07/20/2018 Smokeless Tobacco: Never Used Alcohol Use Drinks/Week oz/Week Comments Yes Alcohol Habits Answer Date Recorded How often do you have a drink containing alcohol? Monthly or less 01/24/2019 How many drinks containing alcohol do you have on a Not asked typical day when you are drinking? How often do you have six or more drinks on one Not asked occasion? Sex Assigned at Date Recorded Not on file Job Start Date Occupation Industry Not on file Not on file Not on file Travel History Travel Start Travel End No recent travel history available. documented as of this encounter Last Filed Vital Signs Vital Sign Reading Time Taken Comments Blood Pressure 141/81 02/18/2019 2:58 PM EDT Pulse 100 02/18/2019 2:58 PM EDT Temperature 36.3 02/18/2019 2:58 PM EDT C (97.3 F) Respiratory Rate 14 02/18/2019 2:58 PM EDT Oxygen Saturation - - Inhaled Oxygen Concentration - - Weight 67.7 kg (149 lb 3.2 oz) 02/18/2019 2:58 PM EDT Height 157.5 cm (5' 2") 02/18/2019 2:58 PM EDT Body Mass Index 27.29 02/18/2019 2:58 PM EDT documented in this encounter Patient Instructions Patient InstructionsBeatriz Calixto MD - 02/18/2019 3:00 PM EDT You were referred to medical oncology due to a finding of painless jaundice and blockage of your bile ducts with a pattern that is highly suspicious for a cancer of the pancreas or bile ducts. We will order a PET scan to look for any sites of disease that might help identify a cancer and determine where the cancer might have spread. I will also order additional blood tests to determine the nature of the type of cancer you may have,although it is unconfirmed at this point. Please follow up with gastroenterology for your upcoming endoscopy, which will help determine the source of the blockage and potentially establish a diagnosis. ORDERS 1. Please schedule blood work as ordered tomorrow ([place] [facility]) 2. Please schedule a follow up in 4 weeks 3. Please schedule a PET CT prior to appointment Please don't hesitate to contact the cancer center should you have any questions or concerns! Contact info: Friday-Friday 8AM-5PM [phone] [place] [phone] [place] After hours, weekends, or holidays, call [phone] and ask for the Oncologist process control supervisor. If you have an acute emergency call 911. documented in this encounter Progress Notes Beatriz Calixto MD - 02/18/2019 3:00 PM EDT PATIENT: Clover Anaya : 1955 DATE OF SERVICE: 02/18/2019 REFERRING PRACTITIONER: [place] None PRIMARY CARE PROVIDER: None, [place] Chief Complaint Patient presents with New Patient No Labs REASON FOR REFERRAL: Suspected pancreatobiliary malignancy HISTORY OF PRESENT ILLNESS: Clover Anaya is a pleasant 63-year-old female who is referred to medical oncology as a hospital follow-up to discuss a possible diagnosis of pancreatobiliary malignancy. She is accompanied by her daughter on today's visit, and her history is summarized below. Clover states that she had been in her usual state of health until earlier this fall, when she started to experience a gradual onset weight loss, associated with loose stools, which was prominent towards mid-December. Towards the beginning of January, she was noted to have marked visible jaundice throughout her body, which prompted a visit to her local hospital, [facility], although she denied any pain at the time. She was noted to have imaging and lab work suggestive of obstructive jaundice, and she was subsequently transferred to [facility] for further evaluation. She was hospitalized from , where she had a CT scan of the abdomen that showed severely dilated CBD, pancreatic and intrahepatic biliary duct, suspicious for a pancreatic head malignancy, although no obvious pancreatic lesion was visualized on imaging studies. She was also found to be in septic shock secondary to ascending cholangitis, and underwent an EGD and ERCP by bariatric surgery due to her prior history of Mao-en-Y gastric bypass, however endoscopic studies were unable to be successfully completed due to presence of a gastro-gastric fistula, and the tract was too small to safely pass the endoscope, therefore procedure was aborted. She underwent biliary decompression by interventional radiology for placement of a percutaneous external biliary drain which was subsequently converted to an internal/external biliary drain. He also underwent a diagnostic laparoscopy on 02/01, which demonstrated markedly abnormal appearance of the liver with extensive edema and inflammation between the hepatic lobe, pancreas, and remnant stomach. Extensive laparoscopic adhesio lysis was performed, and a gastrostomy tube was unable to be successfully placed. Following her hospital discharge, she was readmitted from for weakness and dehydration, and a repeat CT scan of the abdomen/pelvis without IV contrast showed no acute findings, and interval decompression of biliary tree following insertion of percutaneous biliary drain. She was evaluated by gastroenterology, with plan for an endoscopic ultrasound and upper endoscopy, which is currently scheduled for . On today's visit, Clover states that she feels well overall since discharge from her hospital and hasno acute complaints. She does not report any abdominal pain throughout her recent hospitalization, however states that she has started to experience some mid epigastric abdominal pain intermittently.She denies any chest pain, shortness of breath, nausea, vomiting, changes in her bowel or bladder function, bloody stools, hematuria, hematemesis, lightheadedness, dizziness, etc. She has chronic backpain which is relatively unchanged from her baseline. She does report a history of COPD and long-standing smoking, which she describes as 1 pack a day for the past 50 years. She also admits to frequent alcohol intake, describes consuming 2 x 12 pack on a weekly basis until recently. She also admitsto smoking marijuana every other month. She has lost approximately 30 pounds over the past 1 to 2 months as per her report. She has a family history of breast cancer in her sister, colon cancer in her stepbrother, breast cancer in her maternal aunt. Of note, she has several family members includingherself and 7 other siblings with a brain aneurysm, for which she underwent clipping in the , and suffers from a seizure disorder as a result. REVIEW OF SYSTEMS: A complete review of systems is otherwise unremarkable, except for what is mentioned above. PRIOR MEDICAL HISTORY Past Medical History: Diagnosis Date Anxiety Atrial fibrillation (HCC) Cardiac rhythm disorder or disturbance or change COPD (chronic obstructive pulmonary disease) (HCC) Depression Seizures (HCC) PRIOR SURGICAL HISTORY: Past Surgical History: Procedure Laterality Date EGD N/A 01/25/2019 Procedure: ENDOSCOPY UPPER GI; Surgeon: Con Salas MD; Location: [facility] MAIN OR DE GI NUCLEAR PROCEDURE UNLISTED DE NERVOUS SYSTEM SURGERY UNLISTED FAMILY HISTORY: History reviewed. No pertinent family history. SOCIAL HISTORY: Social History Socioeconomic History Marital status: Spouse name: Not on file Number of children: Not on file Years of education: Not on file Highest education level: Not on file Occupational History Not on file Social Needs Financial resource strain: Not on file Food insecurity: Worry: Not on file Inability: Not on file Transportation needs: Medical: Not on file Non-medical: Not on file Tobacco Use Smoking status: Former Smoker Packs/day: 1.00 Years: 50.00 Pack years: 50.00 Types: Cigarettes Last attempt to quit: 07/20/2018 Years since quittin.5 Smokeless tobacco: Never Used Substance and Sexual Activity Alcohol use: Yes Frequency: Monthly or less Drug use: Not Currently Sexual activity: Not Currently Lifestyle Physical activity: Days per week: Not on file Minutes per session: Not on file Stress: Not on file Relationships Social connections: Talks on phone: Not on file Gets together: Not on file Attends gnosticism service: Not on file Active member of club or organization: Not on file Attends meetings of clubs or organizations: Not on file Relationship status: Not on file Intimate partner violence: Fear of current or ex partner: Not on file Emotionally abused: Not on file Physically abused: Not on file Forced sexual activity: Not on file Other Topics Concern Not on file Social History Narrative Not on file MEDICATIONS: Current Outpatient Medications Medication Sig albuterol HFA (VENTOLIN HFA) 108 (90 Base) MCG/ACT Inhalation Aero Soln Take 2 Puffs by inhalation EVERY FOUR HOURS NEEDED (SOB). metoprolol succinate (TOPROL XL) 25 MG Oral TABLET SR 24 HR Take 25 mg by mouth DAILY. quetiapine (SEROQUEL) 100 MG Oral Tab Take 100 mg by mouth EVERY BEDTIME. Topiramate 50 MG Oral Tab Take 100 mg by mouth EVERY MORNING. Topiramate 50 MG Oral Tab Take 150 mg by mouth EVERY BEDTIME. warfarin (COUMADIN) 5 MG Oral Tab Take 1 Tab by mouth DAILY. No current facility-administered medications for this visit. ALLERGIES: Allergies Allergen Reactions Penicillins Cardiac Reaction Per patient heart stopped. Dilantin [Phenytoin Sodium] Hives VITALS: BP 141/81 (BP Location: Left arm, Patient Position: Sitting) | Pulse 100 | Temp 97.3 F (36.3 C) (Temporal) | Resp 14 | Ht 5' 2" (1.575 m) | Wt 149 lb 3.2 oz (67.7 kg) | BMI 27.29kg/m Body mass index is 27.29 kg /m. Physical Exam Constitutional: General: She is not in acute distress. Appearance: She is well-developed. She is ill-appearing. She is not toxic- appearing. Comments: Chronically ill-appearing HENT: Head: Normocephalic and atraumatic. Eyes: General: Scleral icterus present. Conjunctiva/sclera: Conjunctivae normal. Neck: Musculoskeletal: Normal range of motion and neck supple. Thyroid: No thyromegaly. Vascular: No JVD. Trachea: No tracheal deviation. Cardiovascular: Rate and Rhythm: Normal rate and regular rhythm. Heart sounds: Normal heart sounds. No murmur. No friction rub. No gallop. Pulmonary: Effort: Pulmonary effort is normal. No respiratory distress. Breath sounds: Normal breath sounds. No stridor. No wheezing or rales. Abdominal: General: Bowel sounds are normal. There is no distension. Palpations: Abdomen is soft. There is no mass. Tenderness: There is tenderness. There is no guarding or rebound. Hernia: No hernia is present. Comments: Minimal tenderness to deep palpation mid and left lower quadrant. Biliary drain pouch draining well Musculoskeletal: Normal range of motion. General: No tenderness. Right lower leg: Edema present. Left lower leg: Edema present. Comments: 12+ pitting edema bilateral lower extremities, improved from prior as per patientreport, no tenderness to palpation Lymphadenopathy: Cervical: No cervical adenopathy. Skin: General: Skin is warm and dry. Coloration: Skin is jaundiced. Findings: No erythema or rash. Neurological: General: No focal deficit present. Mental Status: She is alert and oriented to person, place, and time. Psychiatric: Mood and Affect: Mood normal. Behavior: Behavior normal. IMAGING: Please refer to history of present illness LABORATORY DATA: Lab Results Component Value Date WBC 9.52 02/15/2019 HGB 10.7 (L) 02/15/2019 HCT 31.0 (L) 02/15/2019 PLAT 407 (H) 02/15/2019 Lab Results Component Value Date NA 135 02/16/2019 K 4.6 02/16/2019 CL 111 (H) 02/16/2019 CO2 20 (L) 02/16/2019 GLUCOSE 79 02/16/2019 BUN 27 (H) 02/16/2019 CREATININE 0.6 (L) 02/16/2019 CALCIUM 8.7 02/16/2019 TP 5.6 (L) 02/15/2019 ALBUMIN 2.9 (L) 02/16/2019 AST 30 02/15/2019 ALT 30 02/15/2019 ALK 186 (H) 02/15/2019 TBILI 1.8 (H) 02/15/2019 EGFR >60 02/16/2019 IMPRESSION/PLAN: ICD-9-CM ICD-10-CM 1. Pancreatobiliary-type carcinoma (HCC) 199.[address] SKULL TO MID THIGH INITIAL TREATMENT CA 19-9 CARCINOEMBRYONIC ANTIGEN Clover Anaya is a pleasant 63-year-old female who is referred to medical oncology for evaluation of suspected pancreatobiliary malignancy. We reviewed her hospital course as well as recent imaging studies, which shows marked hepatobiliary dilatation as well as pancreatic duct dilatation, concerning for extrinsic compression by a pancreatic mass, versus less likely intraluminal biliary duct or duodenal/periampullary mass, although there were no distinct mass that was visualized on CT scan. She is scheduled to undergo an upper endoscopy and endoscopic ultrasound on 03/12, which would hopefully provide more insight as to the underlying cause of her obstructive jaundice. We discussed that given her long-standing smoking history, a primary pancreatic malignancy is very likely, however will need to obtain a tissue biopsy in order to establish a diagnosis and treatment plan. We discussed the need for additional imaging to evaluate the extent of her disease, and I will obtain a PET CT scan accordingly to look for other potential sites of disease that may be amenable to tissue biopsy, if endoscopic biopsy is not possible. I will also obtain serum tumor markers including a CEA and CA 199, which can be elevated in the setting of biliary manipulation, although can be helpful if extremely elevated, and suggestive of pancreatic malignancy. I will plan to follow-up with her in approximately 4 weeks upon completion of her upper endoscopy and endoscopic ultrasound, once a diagnosis has been established and discussed the treatment plan. She is also scheduled to meet with our colleagues in surgical oncology in the upcoming week. Continue to follow-up with PCP as scheduled for all other chronic medical needs. A total of 45 minutes was spent during this clinic visit, of which more than 50 % was spent in reviewing history, hospital course, reviewing imaging studies, labs, discussing differential diagnosis, additional diagnostic steps, and answering pertinent questions from herself and her daughter. Follow up: Schedule follow-up here in 4 week(s). Author: Beatriz Calixto MD 02/18/2019 15:47 documented in this encounter Plan of Treatment Date Type Specialty Care Team Description 02/19/2019 AntiCoag Anticoagulation 02/24/2019 Office Visit General Surgery Puma Choi MD [address] [place] [address] [phone] 03/02/2019 Appointment Radiology 03/12/2019 [facility] Gastroenterology Ortega Coleman MD [address] [place] [address] [phone] 03/12/2019 Hospital Encounter [facility] [place], Short Procedure Ortega Watson MD [address] [place] [address] [phone] 03/12/2019 Surgery [facility] ENDOSCOPIC Ortega Watson MD ULTRASOUND/UGI/?ER [address] [place] [id number] 03/16/2019 Office Visit Hematology and Oncology Beatriz Calixto MD [address] [place] [address] Name Type Priority Associated Diagnoses Order Schedule PET CT SKULL TO MID THIGH Imaging Routine Pancreatobiliary-type Expected: INITIAL TREATMENT carcinoma (HCC) 02/18/2019, Expires: 02/18/2020 CA 19-9 Lab STAT Pancreatobiliary-type Expected: carcinoma (HCC) 02/18/2019 (Approximate), Expires: 02/19/2020 CARCINOEMBRYONIC ANTIGEN Lab STAT Pancreatobiliary-type Expected: carcinoma (HCC) 02/18/2019 (Approximate), Expires: 02/19/2020 Health Maintenance Due Date Last Done Comments MEDICARE ANNUAL WELLNESS 1955 VISIT DEPRESSION SCREENING 1965 HIV SCREENING 1968 LIPID DISORDER SCREENING 11/15/1971 MAMMOGRAM (SCREENING) 1993 COLONOSCOPY SCREENING 11/15/2003 ZOSTER IMMUNIZATION SERIES 11/15/2003 (1 of 2) LUNG CANCER SCREENING 2008 FALL RISK ASSESSMENT 2018 OSTEOPOROSIS SCREENING 2018 PNEUMOCOCCAL 65+YRS (1 of 2 2018 - PCV13) DIABETES SCREENING 02/17/2020 02/16/2019, 02/15/2019, 02/15/2019, Additional history exists HEPATITIS C SCREENING Completed 01/21/2019 INFLUENZA VACCINE Completed 01/23/2019 HPV IMMUNIZATION SERIES Aged Out No longer eligible based on patient's age to complete this topic MENINGOCOCCAL VACCINE IMM Aged Out No longer eligible based on patient's age to complete this topic documented as of this encounter Results Not on filedocumented in this encounter Visit Diagnoses Diagnosis Pancreatobiliary-type carcinoma (HCC) - Primary documented in this encounter Insurance Payer Benefit Plan / Subscriber ID Effective Dates Phone Address Type Group MEDICARE MEDICARE PART A xxxxxxxxxxx 1992-Present Medicare & B MEDICAID [facility] xxxxxxxx 2019-Present Medicaid [place] (Work) documented as of this encounter Advance Directives Code Status Date Activated Date Inactivated Comments Full Code 02/15/2019 5:05 AM Does the patient have decision making capacity? Yes Order was discussed with: Patient I discussed all options and patient/surrogate requested and agreed to: Full Code Full Code 01/21/2019 9:22 PM 02/15/2019 3:16 AM Does the patient have decision making capacity? Yes Order was discussed with: Patient I discussed all options and patient/surrogate requested and agreed to: Full Code
--- OUTSIDE RECORDS SUMMARY | 2019-02-22 12:12 | XMS REPORT | Summary of Care ---
:1955 Author Organization [facility] Address [address] [place] [address] Care Team Providers Name Role Phone None, [place] Primary Care Provider Unavailable Reason for Referral (Routine) Status Reason Specialty Diagnoses / Procedures Referred By Contact Referred To Contact Jeanine Quigley MD [address] [place] [address] Scheduling Instructions Reason for Consult: A 65 yY female with pancreatic mass and s/p biliary Tube placement on 04Feb2019, who was transferred from [facility] because of malodorous bile and dehydration Patient Background: Clover Anaya is a 63-y.o. female Reason for Visit Auth/Cert Status Reason Specialty Diagnoses / Procedures Referred By Contact Referred To Contact Encounter Details Date Type Department Care Team Description 02/15/2019 - Hospital Encounter [facility] Oncology Jeanine Quigley MD [address] [place] [address] Inpatient 02/16/2019 1 John Paul Olivarez MD [address] [address] [address] [place] [address] Allergies Active Allergy Reactions Severity Noted Date Comments Phenytoin Sodium Hives Medium 01/21/2019 Penicillins Cardiac Reaction High 01/21/2019 Per patient heart stopped. documented as of this encounter (statuses as of 02/17/2019) Medications Medication Sig Dispensed Refills Start Date End Date Status albuterol HFA Take 2 Puffs by 0 Active (VENTOLIN HFA) inhalation EVERY 108 (90 Base) FOUR HOURS MCG/ACT NEEDED (SOB). Inhalation Aero Soln quetiapine Take 100 mg by 0 Active (SEROQUEL) 100 MG mouth EVERY Oral Tab BEDTIME. metoprolol Take 25 mg by 0 Active succinate (TOPROL mouth DAILY. XL) 25 MG Oral TABLET SR 24 HR Topiramate 50 MG Take 100 mg by 0 Active Oral Tab mouth EVERY MORNING. Topiramate 50 MG Take 150 mg by 0 Active Oral Tab mouth EVERY BEDTIME. warfarin Take 1 Tab by 30 Tab 0 02/04/2019 Active (COUMADIN) 5 MG mouth DAILY. Oral Tab torsemide Take 1 Tab by 30 Tab 0 02/05/2019 02/16/2019 Discontinued (DEMADEX) 10 MG mouth DAILY. Oral Tab documented as of this encounter (statuses as of 02/17/2019) Active Problems Problem Noted Date Dehydration 02/15/2019 Septic shock due to Escherichia coli 02/04/2019 Obstructive jaundice 02/04/2019 Ascending cholangitis 02/04/2019 [facility] (current) use of anticoagulants 02/04/2019 Overview: Patient is at [facility] Painless jaundice 01/21/2019 documented as of this encounter (statuses as of 02/17/2019) Immunizations Name Administration Dates Next Due Influenza [...] Sign Reading Time Taken Comments Blood Pressure 109/64 02/16/2019 11:45 AM EDT Pulse 94 02/16/2019 11:45 AM EDT Temperature 36.6 02/16/2019 11:45 AM EDT C (97.9 F) Respiratory Rate 16 02/16/2019 11:45 AM EDT Oxygen Saturation 100% 02/16/2019 11:45 AM EDT Inhaled Oxygen Concentration - - Weight 62.3 kg (137 lb 4 oz) 02/15/2019 4:45 AM EDT Height 162.6 cm (5' 4") 02/15/2019 4:45 AM EDT Body Mass Index 23.56 02/15/2019 4:45 AM EDT documented in this encounter Discharge Summaries Frida Munoz MD - 02/16/2019 10:41 AM EDT [facility] [place] [address] Discharge Summary Patient ID: Clover Anaya [id number] 63-y.o. 1955 Admission date: 02/15/2019 Discharge date: 02/16/19 Admitting Physician: Jeanine Quigley MD Indication for Admission: Weakness and dehydration Principal Diagnosis: RODNEY Other medical problems managed in the hospital: Recent history of pancreatic test S/P biliary tube placement. A. fib, hypertension Discharged Condition: stable Hospital Course: A 63F with PMHx significant for seizure, remote brain aneurysm s/p clip 90' , COPD, atrial fibrillation onAC, h/o Mao n y surgery, Pancreatic cancer with CBDand s/p recent biliary PTC placement) by IR , E-coli bacteremia in the setting of ascending cholangitis for which she was treated for14 days of aztreonam and clindamycin. The patient was transferred from [facility] to [facility] for malodorous bile that stated on 14FEB2019, decreased appetite,beinglethargic, weak, nausea.And RODNEY on BMP. CT scan of abdomen/pelvis without IV contrast showed : no acute findings. Interval decompression of biliary tree following insertion of Percutaneous biliary tract. GI was consulted who recommended to continue with same management as PTC drain is working fine. There was no concern for infection i.e. no fever or leukocytosis so blood cultures were not done. And no antibiotics were given. She was managed with IV fluid for the treatment of RODNEY and nephrotoxic medications avoidance. Her kidney functions improved as well as her symptoms. She is scheduled to see surgical oncology onThursday. We are holding her torsemide and she is to follow-up with her primary care to initiate this medication as an outpatient. On the day of discharge the patient was seen and examined with Dr. Dobbins and was deemed stable for discharge to Home with follow up and instructions as outlined at the end of this summary Consults: CONSULT TO GASTROENTEROLOGY REFERRAL TO PASTORAL SERVICES Treatments: analgesia anticoagulation IV hydration Procedures: radiology: CT ABDOMEN PELVIS WITHOUT AND WITH IV CONTRAST Final Result XR CHEST 1 VIEW Final Result Operations: None Complications: None Medications: Current Discharge Medication List CONTINUE these medications which have NOT CHANGED SEROQUEL 100 MG Tabs Generic drug: quetiapine Dose: 100 mg Refills: 0 Take 100 mg by mouth EVERY BEDTIME. * Topiramate 50 MG Tabs Dose: 100 mg Refills: 0 Take 100 mg by mouth EVERY MORNING. * Topiramate 50 MG Tabs Dose: 150 mg Refills: 0 Take 150 mg by mouth EVERY BEDTIME. TOPROL XL 25 MG Tb24 Generic drug: metoprolol succinate Dose: 25 mg Refills: 0 Take 25 mg by mouth DAILY. VENTOLIN HFA 108 (90 Base) MCG/ACT Aers Generic drug: albuterol HFA Dose: 2 Puff Refills: 0 Take 2 Puffs by inhalation EVERY FOUR HOURS NEEDED (SOB). warfarin 5 MG Tabs Commonly known as: COUMADIN Dose: 5 mg Quantity: 30 Tab Refills: 0 Take 1 Tab by mouth DAILY. * This list has 2 medication(s) that are the same as other medications prescribed for you. Read thedirections carefully, and ask your doctor or other care provider to review them with you. Stop taking these previous medications torsemide 10 MG Tabs Commonly known as: DEMADEX Oxygen or Positive Pressure Devices: None Patient Instructions: Do not take torsemide until you see your PCP. Because of RODNEY on admission as well as dehydration. Do not take Coumadin today as your INR is supratherapeutic. Follow-up with Coumadin clinic tomorrow and get your INR checked again. Follow-up with your PCP in 1 week. In case your symptoms worsens, please call 911 and come to ER. Activity: activity as tolerated Wound Care: Keep wound clean and dry Follow-Up: Follow up with Dr. Queen, [place] in 1 week. Reason: Post Hospital Visit Diet: Regular Diet No orders of the defined types were placed in this encounter. Total duration of time spent: 30 minutes. Provider Signature: Frida Galloway MD Associated attestation - John Paul Dobbins MD - 02/16/2019 3:55 [facility] Supervising MD Documentation Date of Service: 02/16/19 B# [id number] I saw and evaluated the patient. Discussed with resident and agree with the resident's findings andplan as documented in the resident's note. Additional Comments: none John Paul Dobbins MD Supervising Physiciandocumented in this encounter Discharge Instructions Rosa Massey RN - 02/16/2019Provider's Instructions Reason for Admission or Diagnosis:Dehydration Goals:Patient to maintain functional ability. Activity/Restrictions: activity as tolerated Skin/Wound Care: None needed Discharge Diet: Heart healthy Diet Special Instructions: Do not take torsemide until you see your PCP. Because of RODNEY on admission as well as dehydration. Do not take Coumadin today as your INR is supratherapeutic. Follow-up with Coumadin clinic tomorrow and get your INR checked again -- 02/17 @ 10:00 AM, call [phone] with any questions Follow-up with your PCP in 1 week -- establish a PCP Keep appointment with [facility] -- 02/18 In case your symptoms worsens, please call 911 and come to ER. Discharge Provider: Frida Galloway MD Attending: John Paul Dobbins MD Time: 10:39 Nurse's Instructions Problems to report to your Physician: Excessive pain or discomfort Fever > 100.5 degrees Difficulty breathing Increase or smell in wound drainage Skin/Wound Care: Skin intact on discharge: None Medical Equipment/Supplies to help you at home: none documented in this encounter Progress Notes Frida Munoz MD - 02/15/2019 3:30 PM EDTShort progress note: Patient was admitted overnight for weakness and dehydration. She recently had a PTC drain placed byIR in her last hospitalization for E. coli bacteremia in the setting of ascending cholangitis and was treated with aztreonam and clindamycin. Currently she is doing much better. Chemistry showed decreased potassium which was being replaced. For RODNEY, she has been on LR. Consulted GI appreciated. Will hold on infectious work-up as well as antibiotics. Continue to monitor. Patient was seen and discussed with Dr Shilpi Galloway MD Associated attestation - John Paul Dobbins MD - 02/15/2019 5:58 PM [facility] Supervising MD Documentation Date of Service: 02/15/19 B# [id number] I saw and evaluated the patient. Discussed with resident and agree with the resident's findings andplan as documented in the resident's note. Additional Comments: none John Paul Dobbins MD Supervising Physiciandocumented in this encounter Plan of Treatment Date Type Specialty Care Team Description 02/18/2019 Office Visit Hematology and Oncology Beatriz Calixto MD [address] [id number] 02/19/2019 AntiCoag Anticoagulation 02/24/2019 Office Visit General Surgery Puma Choi MD [address] [address] 03/12/2019 IPPR Gastroenterology Ortega Coleman MD [address] [id number] 03/12/2019 Hospital [facility] [place], Short Procedure Encounter Ortega Watson MD [address] [address] [phone] 03/12/2019 Surgery [facility] [place], ENDOSCOPIC Ortega Watson MD ULTRASOUND/UGI/?ER [address] [place] [id number] Health Maintenance Due Date Last Done Comments MEDICARE ANNUAL WELLNESS VISIT 1955 DEPRESSION SCREENING 1965 HIV SCREENING 1968 LIPID DISORDER SCREENING 11/15/1971 MAMMOGRAM (SCREENING) 1993 COLONOSCOPY SCREENING 11/15/2003 ZOSTER IMMUNIZATION SERIES (1 of 11/15/2003 2) LUNG CANCER SCREENING 2008 FALL RISK ASSESSMENT 2018 OSTEOPOROSIS SCREENING 2018 PNEUMOCOCCAL 65+YRS (1 of 2 - 2018 PCV13) HEPATITIS C SCREENING Completed 01/21/2019 INFLUENZA VACCINE Completed 01/23/2019 HPV IMMUNIZATION SERIES Aged Out No longer eligible based on patient's age to complete this topic MENINGOCOCCAL VACCINE IMM Aged Out No longer eligible based on patient's age to complete this topic documented as of this encounter Procedures Procedure Name Priority Date/Time Associated Comments Diagnosis RENAL FUNCTION PANEL Routine 02/16/2019 6:06 Results for this AM EDT procedure are in the results section. PROTHROMBIN TIME Routine 02/16/2019 6:06 Results for this AM EDT procedure are in the results section. BASIC METABOLIC PANEL Routine 02/15/2019 5:35 Results for this PM EDT procedure are in the results section. PROTHROMBIN TIME Routine 02/15/2019 2:39 Results for this PM EDT procedure are in the results section. CONSULT SCAN 02/15/2019 12:00 PM EDT THYROID STIMULATING Routine 02/15/2019 8:08 Results for this HORMONE AM EDT procedure are in the results section. OSMOLALITY, SERUM Routine 02/15/2019 8:08 Results for this AM EDT procedure are in the results section. MAGNESIUM LEVEL Routine 02/15/2019 8:08 Results for this AM EDT procedure are in the results section. COMPREHENSIVE Routine 02/15/2019 8:08 Results for this METABOLIC PANEL AM EDT procedure are in the results section. CBC NO DIFFERENTIAL Routine 02/15/2019 8:08 Results for this AM EDT procedure are in the results section. CT ABDOMEN PELVIS Routine 02/14/2019 12:05 Pain WITHOUT AND WITH IV AM EDT CONTRAST XR CHEST 1 VIEW Routine 02/14/2019 12:00 Pain AM EDT documented in this encounter Results RENAL FUNCTION PANEL (02/16/2019 6:06 AM EDT) Sodium 135 134 - 145 mmol/L [facility] Potassium 4.6 3.5 - 5.1 mmol/L [facility] Chloride 111 (H) 98 - 107 mmol/L [facility] CO2 20 (L) 22 - 30 mmol/L [facility] Glucose 79 70 - 99 mg/dl [facility] Creatinine 0.6 (L) 0.7 - 1.2 mg/dl [facility] BUN 27 (H) 7 - 17 mg/dl [facility] Calcium 8.7 8.3 - 10.1 mg/dl [facility] Albumin 2.9 (L) 3.5 - 5.0 g/dl [facility] Phosphorus 2.2 (L) 2.5 - 4.5 MG/DL [facility] eGFR >[address] [facility] Comment: Below ml/min/1.73ml GROUP Estimated GFR Interpretation: Sq LABORATORY Above 60ml/min/1.73m2 = Normal Renal Function 30-59 ml/min/1.73m2 = Stage 3 Chronic Kidney Disease 15-29 ml/min/1.73m2 = Stage 4 Chronic Kidney Disease Less than 15 ml/min/1.73m2 = Stage 5 Chronic Kidney Disease The GFR value is calculated using the Modification of Diet in Renal Disease ( MDRD) Study Equation which can be found at: https://www.kidney.org/content/trvm-qaqjl-mzuyzhgp BUN/Creatinine 45 (H) 6 - 22 RATIO [facility] Anion Gap 4 3 - 11 mmol/L [facility] Specimen Blood - Blood specimen (specimen) Performing Organization Address [facility] Phone Number [facility] [address] [place] [address] PROTHROMBIN TIME (02/16/2019 6:06 AM EDT) INR 3.44 (H)Comment: INR 0.88 - 1.13 [facility] Therapeutic Range: Ratio GROUP LABORATORY 2.0 - 3.5 Protime 33.9 (H)Comment: 12.0 - 14.[address] [facility] Reference range GROUP LABORATORY updated 02/09/2019. Specimen Blood - Blood specimen (specimen) Performing Organization Address [facility] Phone Number [facility] [address] [place] [place] [address] [phone] BASIC METABOLIC PANEL (02/15/2019 5:35 PM EDT) Glucose 159 (H) 70 - 99 mg/dl [facility] BUN 35 (H) 7 - 17 mg/dl [facility] Creatinine 0.9 0.7 - 1.2 mg/dl [facility] Sodium 135 134 - 145 mmol/L [facility] Potassium 2.7 (LL) 3.5 - 5.1 mmol/L [facility] Chloride 108 (H) 98 - 107 mmol/L [facility] CO2 17 (L) 22 - 30 mmol/L [facility] Calcium 8.2 (L) 8.3 - 10.1 mg/dl [facility] eGFR >[address] [facility] Comment: Below ml/min/1.73ml GROUP Estimated GFR Interpretation: Sq LABORATORY Above 60ml/min/1.73m2 = Normal Renal Function 30-59 ml/min/1.73m2 = Stage 3 Chronic Kidney Disease 15-29 ml/min/1.73m2 = Stage 4 Chronic Kidney Disease Less than 15 ml/min/1.73m2 = Stage 5 Chronic Kidney Disease The GFR value is calculated using the Modification of Diet in Renal Disease ( MDRD) Study Equation which can be found at: https://www.kidney.org/content/edcd-aandc-kesptfag BUN/Creatinine 39 (H) 6 - 22 RATIO [facility]OR[facility]ORY Anion Gap 10 3 - 11 mmol/L [facility] Specimen Blood - Blood specimen (specimen) Performing Organization Address [facility] Phone Number [facility] [address] [place] [address] [phone] PROTHROMBIN TIME (02/15/2019 2:39 PM EDT) INR 4.30 (H)Comment: INR 0.88 - 1.13 [facility] Therapeutic Range: Ratio GROUP LABORATORY 2.0 - 3.5 Protime 40.3 (H)Comment: 12.0 - 14.[address] [facility] Reference range GROUP LABORATORY updated 02/09/2019. Specimen Blood - Blood specimen (specimen) Performing Organization Address [facility] Phone Number [facility] [address] [place] [address] OSMOLALITY, SERUM (02/15/2019 8:08 AM EDT) Osmolality, Serum 286 280 - 300 MOSM/KG [facility] Specimen Blood - Blood specimen (specimen) Performing Organization Address [facility] Phone Number [facility] [address] [place] [address] [phone] CBC NO DIFFERENTIAL (02/15/2019 8:08 AM EDT) WBC Count 9.52Comment: 3.98 - 10.04 [facility] was K/uL GROUP LABORATORY changed 04/23/2018. Please note updated reference range and units. RBC Count 3.20 (L) 3.93 - 5.22 [facility] M/UL GROUP LABORATORY Hemoglobin 10.7 (L) 11.2 - 15.7 [facility] g/dL GROUP LABORATORY Hematocrit 31.0 (L) 34.1 - 44.9 % [facility] MCV 96.9 (H) 79.4 - 94.8 [facility] FL GROUP LAB[facility]ATORY MCH 33.4 (H) 25.6 - 32.2 [facility] PG GROUP LABORATORY MCHC 34.5 32.2 - 35.5 [facility] g/dL GROUP LAB[facility]ORY Platelet Count 407 (H) 182 - 369 [facility] K/uL GROUP LAB[facility]ORY MPV 9.8 9.4 - 12.3 FL [facility] RDW 13.2 11.7 - 14.4 % [facility] Specimen Blood - Blood specimen (specimen) Performing Organization Address [facility] Phone Number [facility] [address] [place] [address] THYROID STIMULATING HORMONE (02/15/2019 8:08 AM EDT) TSH 1.73 0.47 - 4.68 uIu/ml [facility] Specimen Blood - Blood specimen (specimen) Performing Organization Address [facility] Phone Number [facility] [address] [address] MAGNESIUM LEVEL (02/15/2019 8:08 AM EDT) Magnesium 2.2 1.6 - 2.3 MG/DL [facility] Specimen Blood - Blood specimen (specimen) Performing Organization Address [facility] Phone Number [facility] [address] [place] [address] [phone] COMPREHENSIVE METABOLIC PANEL (02/15/2019 8:08 AM EDT) Sodium 134 134 - 145 mmol/L [facility] Potassium 2.8 (LL) 3.5 - 5.1 mmol/L [facility] Chloride 105 98 - 107 mmol/L [facility] CO2 16 (L) 22 - 30 mmol/L [facility] Calcium 8.3 8.3 - 10.1 mg/dl [facility] Albumin 2.9 (L) 3.5 - 5.0 g/dl [facility] BUN 42 (H) 7 - 17 mg/dl [facility] Creatinine 1.3 (H) 0.7 - 1.2 mg/dl [facility] Glucose 72 70 - 99 mg/dl [facility] Total Protein 5.6 (L) 6.3 - 8.2 g/dl [facility] Total Bilirubin 1.8 (H) 0.0 - 1.1 MG/DL [facility] AST 30 15 - 46 U/L [facility] ALT 30 9 - 52 U/L [facility] Alkaline 186 (H) 40 - 150 U/L [facility] eGFR [address] [facility] Comment: Below ml/min/1.73ml GROUP Estimated GFR Interpretation: Sq LABORATORY Above 60ml/min/1.73m2 = Normal Renal Function 30-59 ml/min/1.73m2 = Stage 3 Chronic Kidney Disease 15-29 ml/min/1.73m2 = Stage 4 Chronic Kidney Disease Less than 15 ml/min/1.73m2 = Stage 5 Chronic Kidney Disease The GFR value is calculated using the Modification of Diet in Renal Disease ( MDRD) Study Equation which can be found at: https://www.kidney.org/content/bzpa-yxvlv-pwterjmx BUN/Creatinine 32 (H) 6 - 22 RATIO [facility] GROUP LABORATORY Anion Gap 13 (H) 3 - 11 mmol/L [facility] A/G Ratio 1.1 0.8 - 2.0 ratio [facility] Specimen Blood - Blood specimen (specimen) Performing Organization Address City/State/Zipcode Phone Number [facility] [address] [place] [address] [address] ABDOMEN PELVIS WITHOUT AND WITH IV CONTRAST (02/14/2019 12:05 AM EDT) Specimen Performing Organization Address City/[facility]/Zipcode Phone Number [facility] [address] [address] XR CHEST 1 VIEW (02/14/2019 12:00 AM EDT) Specimen Performing Organization Address City/[facility] Phone Number [facility] [address] [address] documented in this encounter Visit Diagnoses Diagnosis Dehydration - Primary Pain Generalized pain Obstructive jaundice Other specified disorders of biliary tract [facility] (current) use of anticoagulants Long-term (current) use of anticoagulants Ascending cholangitis Cholangitis documented in this encounter Administered Medications Medication Order MAR Action Action Date Dose Rate Site lactated ringers IV New Bag 02/16/2019 4:35 AM EDT 75 mL/hr Intravenous, at 75 mL/hr, CONTINUOUS, Starting Fri02/15/19 at 1740, Until 02/16/19 at 1041 New Bag 02/15/2019 4:47 PM EDT 75 mL/hr normal saline IV Rate Verify 02/15/2019 8:00 AM EDT 125 mL/hr Intravenous, at 125 mL/hr, CONTINUOUS, Starting Fri02/15/19 at 0610, Until Fri02/15/19 at 1610, While she NPO, New Bag 02/15/2019 6:11 AM EDT 125 mL/hr potassium chloride (K-DUR) controlled Given 02/15/2019 7:36 PM EDT 40 mEq release tablet 40 mEq 40 mEq, Oral, Q1 HR, 2 doses, First dose (after last reorder) on Fri02/15/19 at 1800, Last dose on Fri02/15/19 at 1900, Per the Package Insert, if the patient is having difficulty swallowing whole tablets, place the tablet in approximately 4 fluid ounces of water. Allow 2 minutes for the tablet (s) to disintegrate. Stir for 30 seconds after the tablet has disintegrated. Swirl the suspension and have the patient consume the entire contents of the glass immediately by drinking or by the use of a straw. Add another 1 fluid ounce of water, swirl and consume immediately. Then add an additional 1 fluid ounce of water, swirl and consume immediately. Aqueous suspension of K-Dur tablets that is not taken immediately should be discarded. The use of other liquids for suspending K-Dur tablets is not recommended., Given 02/15/2019 6:57 PM EDT 40 mEq potassium chloride IV premix 10 mEq/ 100 New Bag 02/16/2019 12:03 AM EDT 10 mEq mL (PERIPHERAL) 10 mEq 10 mEq, Intravenous, Q1 HR, 3 doses, First dose on Fri02/15/19 at 2040, Last dose on Fri02/15/19 at 2240, Administration of potassium infusion requires the use of an IV pump. May be administered via a PERIPHERAL line or CENTRAL line. Administer each 10 mEq over 1 hour., New Bag 02/15/2019 9:55 PM EDT 10 mEq New Bag 02/15/2019 8:05 PM EDT 10 mEq quetiapine (SEROQUEL) tablet 100 mg Given 02/15/2019 8:13 PM EDT 100 mg 100 mg, Oral, QHS, First dose on Fri02/15/19 at 2100, Until Discontinued topiramate (TOPAMAX) tablet 100 mg Given 02/16/2019 8:46 AM EDT 100 mg 100 mg, Oral, QAM, First dose on Fri02/15/19 at 0900, Until Discontinued Given 02/15/2019 10:02 AM EDT 100 mg topiramate (TOPAMAX) tablet 150 mg Given 02/15/2019 8:13 PM EDT 150 mg 150 mg, Oral, QHS, First dose on Fri02/15/19 at 2100, Until Discontinued WARFARIN HOLD Does not apply, WARFARIN HOLD, 1 dose, Tu02/16/19 at 1700 warfarin patient Does not apply, DAILY 1400, First dose on Fri02/15/19 at 1440, Until Discontinued, This order indicates that the patient is on warfarin therapy. The patient should have an order for Warfarin x 1 or a "Warfarin HOLD" x 1 order scheduled for 1700 today. If one is not present, please call the provider to obtain an order. The nurse should enter "no dose required" for this order once a warfarin order is present. Provide Patient/Family with education including the importance of follow up monitoring, compliance, drug-food interactions, potential for adverse drug reactions and interactions (give patient copy of [employer] CareNotes for Warfarin) and document that education was provided. Provide patient with/place order for Medical Alert bracelet if needed. , documented in this encounter Insurance Payer Benefit Plan / Subscriber ID Effective Dates Phone Address Type Group MEDICARE MEDICARE PART A xxxxxxxxxxx 1992-Present Medicare & B MEDICAID [facility] xxxxxxxx 2019-Present Medicaid [place] MEDICAID (Work) documented as of this encounter [...]
--- NOTE | 2019-02-22 13:03 | ED ---
Altered Mental Status - HPI Summary HPI Summary: LIMITED DUE TO LEVEL 5 CAVEAT - SOMNOLENT Patient is a 63 y/o F presenting to the ED for a chief complaint of AMS. Patient is present with her daughter. Patient is somnolent in the room. Patient' s daughter states that the patient went to visit a friend on 02/21/19 and likely drank alcohol at that time. Patient slept 12 hours and woke up at 11:00 on 02/22/19 and drank coffee. On the morning of 02/22/19, the patient's daughter noticed that the patient had generalized weakness, decreased concentration, and could not walk without help. Patients daughter states last known well time was before the patient went to visit her friend. On 01/21/19, patient was seen at [facility] for jaundice and transferred to [facility] where she was told she has a mass on her liver. Patient had a biliary tube placed at that time and the patient's family recently noticed the biliary tube had a foul odor. Patient takes Coumadin for a PMHx of atrial fibrillation. Patient is taking diuretics and recently lost 30 pounds in the last month. Patient was previously at [facility]. Patient has a history of alcohol abuse and generally drinks beer. Patient's daughter denies previous rehab or other treatment for alcohol use. - History Of Current Complaint Chief Complaint: EDAltMentalStatus Stated Complaint: AMS PER PT DAUGHTER Time Seen by Provider: 02/22/19 12:13 Hx Obtained From: Family/Refining Machine Operator - Daughter Hx From Patient Unobtainable Due To: Altered Mental Status - LEVEL 5 CAVEAT - SOMNOLENT Onset/Duration: Still Present Timing: Constant, Lasting Hours - Since 02/21/19, Lasting Weeks Severity Initially: Moderate Severity Currently: Moderate Aggravating Factor(s): Drug Abuse - Alcohol use Associated Signs And Symptoms: Positive: Weakness - Generalzied - Allergies/Home Medications Allergies/Adverse Reactions: Allergies Allergy/AdvReac Type Severity Reaction Status Date / Time adhesive tape Allergy Hives Verified 02/22/19 12:04 aspirin Allergy Hives Verified 02/22/19 12:04 Penicillins Allergy Anaphylatic Verified 02/22/19 12:04 Shock phenytoin [From Dilantin] Allergy Hives Verified 02/22/19 12:04 Home Medications: Home Medications Acetaminophen with Codeine [Acetaminophen/Codeine Anthony 300-30 mg] 1 - 2 tab PO BID PRN MDD 4 tabs 02/22/19 [History Confirmed 02/22/19] Glycopyrrolate/Formoterol (NF) [Bevespi Aerospere Inhaler] 2 puff INH BID [History Confirmed 02/22/19] LORazepam TAB(*) [Ativan 1 MG TAB (*)] 1 mg PO BID PRN 02/22/19 [History Confirmed 02/22/19] Montelukast Sodium TAB* [Singulair TAB*] 10 mg PO DAILY 02/22/19 [History Confirmed 02/22/19] Multivit with Iron,Hematinic [Central-Samuel] 1 each PO DAILY 02/22/19 [History Confirmed 02/22/19] Topiramate TAB(*) [Topamax 100 mg tab] 100 mg PO QAM 02/22/19 [History Confirmed 02/22/19] PMH/Surg Hx/FS Hx/Imm Hx Previously Healthy: No - LEVEL 5 CAVEAT - SOMNOLENT Endocrine/Hematology History: Denies: Hx Anticoagulant Therapy, Hx Diabetes Cardiovascular History: Reports: Hx Hypertension Respiratory History: Reports: Hx Asthma - USES AN INHLAER, Hx Chronic Obstructive Pulmonary Disease (COPD), Other Respiratory Problems/Disorders - USES O2 2 L CONTINOUS GI History: Denies: Hx Gall Bladder Disease History: Denies: Hx Acute Renal Failure, Hx Chronic Renal Failure, Hx Renal Disease Sensory History: Reports: Hx Cataracts - CATARACT LEFT EY, Hx Contacts or Glasses, Hx Deafness - Pt cant verify which side is deaf Denies: Hx Hearing Aid Opthamlomology History: Reports: Hx Cataracts - CATARACT LEFT EY, Hx Contacts or Glasses Neurological History: Reports: Hx Migraine, Hx Seizures - BRAIN ANEURYSM 1989 Psychiatric History: Reports: Hx Anxiety, Hx Substance Abuse - Alcohol abuse - Cancer History Hx Chemotherapy: No Hx Radiation Therapy: No - Surgical History Surgical History: Yes Surgery Procedure, Year, and Place: [facility], [facility]IC [facility], [facility], BRAIN SURGERY [place] Hx Anesthesia Reactions: No - Immunization History Date of Tetanus Vaccine: PT STATES UNSURE Date of Influenza Vaccine: PT STATES UNSURE Infectious Disease History: No Infectious Disease History: Denies: Traveled Outside the [place] in Last 30 Days - Family History Known Family History: Positive: Other - Breast CA in sister and aunt - Social History Alcohol Use: Occasionally Hx Substance Use: No Substance Use Type: Reports: Marijuana Hx Tobacco Use: Yes Smoking Status (MU): Current Every Day Smoker Review of Systems Positive: Other - Positive decreased concentration and 30 lb weight loss Positive: Other - Positive difficulty ambulating without help Positive: Other - Positive foul odor from biliary tube Positive: Weakness - Generalzied All Other Systems Reviewed And Are Negative: No - Comments Additional Review of Systems Comments: LIMITED DUE TO LEVEL 5 CAVEAT - SOMNOLENT Physical Exam - Summary Physical Exam Summary: PHYSICAL EXAM LIMITED DUE TO LEVEL 5 CAVEAT - SOMNOLENT Constitutional: Well-developed, Well-nourished, Alert. (-) Distressed Skin: Warm, Dry HENT: Normocephalic; Atraumatic. Mild nystagmus. Eyes: Conjunctiva normal Neck: Musculoskeletal ROM normal neck. (-) JVD, (-) Stridor, (-) Tracheal deviation Cardio: Rhythm regular, rate normal, Heart sounds normal; Intact distal pulses; The pedal pulses are 2+ and symmetric. Radial pulses are 2+ and symmetric. (-) Murmur Pulmonary/Chest wall: Effort normal. (-) Respiratory distress, (-) Wheezes, (-) Rales. Bibasilar crackles. Abd: Soft, (-) tenderness, (-) Distension, (-) Guarding, (-) Rebound Musculoskeletal: (-) Edema Lymph: (-) Cervical adenopathy Neuro: Mild dysmetria. Somnolent, but rouses to loud vocal stimuli. Psych: Mood and affect Normal Triage Information Reviewed: Yes Vital Signs On Initial Exam: Initial Vitals Temp Pulse Resp BP Pulse Ox 97.4 F 98 16 104/62 96 02/22/19 11:57 02/22/19 11:57 02/22/19 11:57 02/22/19 11:57 02/22/19 11:57 Vital Signs Reviewed: Yes Completion Of Physical Exam Limited Due To: Altered Mental Status, Level 5 - UNRESPONSIVE - [place] Coma Scale Best Eye Response: 3 - To Speech Best Motor Response: 6 - Obeys Commands Best Verbal Response: 5 - Oriented Coma Scale Total: 14 Procedures - Sedation Patient Received Moderate/Deep Sedation with Procedure: No Diagnostics - Vital Signs Vital Signs Temp Pulse Resp BP Pulse Ox 02/22/19 11:57 97.4 F 98 16 104/62 96 - Laboratory Result Diagrams: 02/22/19 13:04 02/22/19 13:04 Lab Statement: Any lab studies that have been ordered have been reviewed, and results considered in the medical decision making process. - CT Head CTA CT Interpretation Completed By: Radiologist Summary of CT Findings: Head CTA IMPRESSION: 1. ATHEROSCLEROSIS. 2. STATUS POST ANEURYSM CLIPPING ON THE RIGHT. 3. NO INTERNAL CAROTID ARTERY STENOSIS BY NASCET CRITERIA. 4. NO ANEURYSM, VASCULAR MALFORMATION, OCCLUSION, OR STENOSIS OF THE VISUALIZED INTRACRANIAL CIRCULATION. Reviewed by ED physician. Brain CT CT Interpretation Completed By: Radiologist Summary of CT Findings: Brain CT IMPRESSION: 1. ATHEROSCLEROSIS. 2. STATUS POST ANEURYSM CLIPPING ON THE RIGHT. 3. NO INTERNAL CAROTID ARTERY STENOSIS BY NASCET CRITERIA. 4. NO ANEURYSM, VASCULAR MALFORMATION, OCCLUSION, OR STENOSIS OF THE VISUALIZED INTRACRANIAL CIRCULATION. Reviewed by ED physician. - EKG 12:29 Cardiac Rate: NL - 92 BPM EKG Rhythm: Sinus Rhythm ST Segment: Normal Ectopy: None Summary of EKG Findings: EKG at 12:29 reveals 92 BPM with normal sinus rhythm, no STEMI. Reviewed by ED physician. Re-Evaluation - Re-Evaluation First Re-Evaluation Time: 16:36 Change: Improved Comment: At 16:26, patient is more awake, has mild horizontal nystagmus. Patient is complaining of double vision occulting the left eye. Patient has a clip and apparently cannot have an MRI. Altered Mental Statu Course/Dx - Course Course Of Treatment: LEVEL 5 CAVEAT - SOMNOLENT. Patient is a 63 y/o F presenting to the ED for a chief complaint of AMS. Patient is present with her daughter. Patient is somnolent in the room. Patient's daughter states that the patient went to visit a friend on 02/21/19 and likely drank alcohol at that time. Patient slept 12 hours and woke up at 11:00 on 02/22/19 and drank coffee. On the morning of 02/22/19, the patient's daughter noticed that the patient had generalized weakness, decreased concentration, and could not walk without help. Patients daughter states last known well time was before the patient went to visit her friend. On 01/21/19, patient was seen at [facility] for jaundice and transferred to [facility] where she was told she has a mass on her liver. Patient had a biliary tube placed at that time and the patient's family recently noticed the biliary tube had a foul odor. Patient takes Coumadin for a PMHx of atrial fibrillation. Patient is taking diuretics and recently lost 30 pounds in the last month. Patient was previously at [facility] [place]. Patient has a history of alcohol abuse and generally drinks beer. Patient's daughter denies previous rehab or other treatment for alcohol use. On exam, bibasilar crackles , somnolent, but rouses to loud vocal stimuli, mild nystagmus, mild dysmetria. In the ED course, patient was given iohexol 80 ml IV, naloxone 0.4 mg IV PUSH, and thiamine 100 mg IV. EKG at 12:29 reveals 92 BPM with normal sinus rhythm, no STEMI. Laboratory abnormal findings: RBC 3.40, Hgb 11.4, Hct 33, MCV 98,MCH 34, MPV 7.0, potassium 3.3, carbon dioxide 21, creatinine 0.43, UN/Creatinine ratio 32.6, glucose 114, calcium 7.8, total bilirubin 1.90, alkaline phosphatase 178, total protein 4.6, albumin 2.6. Brain CT IMPRESSION: 1. ATHEROSCLEROSIS. 2. STATUS POST ANEURYSM CLIPPING ON THE RIGHT. 3. NO INTERNAL CAROTID ARTERY STENOSIS BY NASCET CRITERIA. 4. NO ANEURYSM, VASCULAR MALFORMATION, OCCLUSION, OR STENOSIS OF THE VISUALIZED. INTRACRANIAL CIRCULATION. Head CTA IMPRESSION: 1. ATHEROSCLEROSIS. 2. STATUS POST ANEURYSM CLIPPING ON THE RIGHT. 3. NO INTERNAL CAROTID ARTERY STENOSIS BY NASCET CRITERIA. 4. NO ANEURYSM, VASCULAR MALFORMATION, OCCLUSION, OR STENOSIS OF THE VISUALIZED. INTRACRANIAL CIRCULATION. At 16:26, patient is more awake, has mild horizontal nystagmus. Patient is complaining of double vision occulting the left eye. Patient has a clip and apparently cannot have an MRI. At 18:00, Dr. Radha Puri agrees to admit the patient to [facility] with a diagnosis of weakness and delirium. Patient will be admitted to [facility] with a diagnosis of weakness and delirium. - Diagnoses Provider Diagnoses: Weakness, Delirium - Provider Notifications Discussed Care Of Patient With: Radha Puri - At 18:00, Dr. Radha Puri agrees to admit the patient to [facility] with a diagnosis of weakness and delirium. Time Discussed With Above Provider: 18:00 Instructed by Provider To: Admit As Inpatient Discharge ED - Sign-Out/Discharge Documenting (check all that apply): Patient Departure - Admit - Discharge Plan Condition: Stable Disposition: ADMITTED TO [facility] Referrals: Santy Martin MD [Primary Care Provider] - - Attestation Statements Document Initiated by Scribe: Yes Documenting Scribe: Marge Verdin Provider For Whom Scribe is Documenting (Include Credential): Declan Alegre MD Scribe Attestation: Marge Majano, scribed for Declan Alegre MD on 02/22/19 at 1813. Status of Scribe Document: Ready
[2019-02-22 13:11] LABS: ABS Basophils 0.1 10^3/ul (0-0.2); ABS Eosinophils 0.1 10^3/ul (0-0.6); ABS Lymphocytes 2.7 10^3/ul (1.0-4.8); ABS Monocytes 0.3 10^3/ul (0-0.8); ABS Neutrophils 3.1 10^3/ul (1.5-7.7); Hematocrit 33 % (35-47); Hemoglobin 11.4 g/dL (12.0-16.0); Lymphocyte % 42.7 %; Mean Corpuscular HGB Conc 34 g/dL (31-36); Mean Corpuscular Hemoglobin 34 pg (27-31); Mean Corpuscular Volume 98 fL (80-97); Nucleated Red Blood Cells % 0.1; Platelet Count 272 10^3/uL (150-450); Red Cell Distribution Width 13 % (10-15); White Blood Count 6.3 10^3/uL (3.5-10.8)
[2019-02-22 13:32] LABS: ALT 15 U/L (7-52); AST 22 U/L (13-39); Albumin 2.6 g/dL (3.2-5.2); Albumin/Globulin Ratio 1.3 (1-3); Alkaline Phosphatase 178 U/L (34-104); Anion Gap 6 mmol/L (2-11); BUN/Creatinine Ratio 32.6 (8-20); Blood Urea Nitrogen 14 mg/dL (6-24); CO2 Carbon Dioxide 21 mmol/L (22-32); Calcium 7.8 mg/dL (8.6-10.3); Chloride 109 mmol/L (101-111); EGFR African American 178.3 (>60); EGFR Non-African American 147.4 (>60); Glucose 114 mg/dL (70-100); Potassium 3.3 mmol/L (3.5-5.0); Sodium 136 mmol/L (135-145); Total Protein 4.6 g/dL (6.4-8.9)
[2019-02-22 13:38] LABS: Alcohol < 10 mg/dL (<10)
[2019-02-22] MEDS ORDERED: Iohexol 350* (CONTRAST) 500 ML MDV IV ONE (14:38)
[2019-02-22 14:52] LABS: C Reactive Protein 49.09 mg/L (<8.01)
[2019-02-22 15:05] LABS: Urine Appearance Clear; Urine Bilirubin Negative (Negative); Urine Blood Negative (Negative); Urine Color Amber; Urine Glucose Negative (Negative); Urine Ketones Negative (Negative); Urine Nitrite Negative (Negative); Urine Protein Negative (Negative); Urine Specific Gravity 1.026 (1.010-1.030); Urine Urobilinogen Negative (Negative)
[2019-02-22 15:09] LABS: Urine Benzodiazepine Screen Presumptive Positive (None Detect); Urine Opiates Screen Presumptive Positive (None Detect)
[2019-02-22] MEDS ORDERED: Naloxone* 0.4 MG/ML 1 ML VIAL IV PUSH ONE (15:14)
[2019-02-22] MEDS ORDERED: Thiamine INJ* 100 MG/ML 2 ML VIAL IV ONE (15:36)
[2019-02-22 16:06] LABS: Activated Partial Thrombo Time 60.6 seconds (26.0-38.0); INR 3.44 (0.82-1.09)
[2019-02-22] MEDS ORDERED: LORazepam TAB(*) 1 MG PO PRN (17:30)
[2019-02-22] MEDS ORDERED: Albuterol HFA INHALER* 8 gm MDI INH PRN (17:30)
[2019-02-22] MEDS ORDERED: Meclizine TAB* 12.5 MG PO PRN (17:30)
[2019-02-22] MEDS: NS 0.9% 1000 ML** 1,000 ML IV SCH (18:27)
[2019-02-22] MEDS: KCL 10 MEQ/50 ML IVPREMIX* 10 MEQ/50 ML BAG IV SCH ×4 (18:29→23:43)
[2019-02-22] MEDS: Topiramate TAB(*) 100 MG PO SCH (21:14)
[2019-02-22] MEDS: Loperamide CAP* 2 MG PO SCH (21:22)
--- NOTE | 2019-02-22 22:31 | CONS ---
CC: Dr. Martin; Dr. Moraes * CONSULTATION REPORT: DATE OF CONSULT: 02/22/19 LOCATION: Current location is ER. PRIMARY CARE PROVIDER: Dr. Martin. TREATING NEUROLOGIST: Dr. Moraes. REASON FOR CONSULTATION: Altered mental status. HISTORY OF PRESENT ILLNESS: Ms. Anaya is a 63-year-old female who has a very complicated past medical history including biliary dilatation presenting [place] [facility] [place] with complaints of jaundice, transferred at that time to [facility] for an ERCP. It is unclear whether that was done, but she was diagnosed with E. coli septicemia and treated with antibiotics with percutaneous drain placed. There is also some concern for malignancy in the pancreas and she was discharged from there to [facility] for rehab. She presented to the hospital at [facility] on 02/14/19. At that time, she was very weak. The patient's daughter noticed that her percutaneous drain was draining smelly bile. There was a reported 40-pound weight loss in fluid after she was started on torsemide and eventually, she was transferred back to [facility] where she could have an ERCP done. There was some concern for infection. She was sent there and was discharged and the daughter states had been slightly better, but last night she apparently went over to some friends. There is conflicting reports of whether or not she was drinking. Her daughter believes that she was also; the patient, who is currently confused, states that she took 4 Ativan in addition, she admits to smoking marijuana last night. The daughter brought her home and this morning noticed that the patient was very somnolent and based on that brought her to the ER. Again, the patient is a very poor historian although when questioned, she does admit to smoking marijuana. The daughter is unclear whether she had alcohol yesterday, how much Ativan she actually took, how much pain medicine she actually took, and how much marijuana she smoked. Today in the ER, the patient is very somnolent, apparently was reporting some double vision, which was apparently new. The daughter also noted that the patient was more weak and was having difficulty walking although she did walk to the car. She also notes that she has had some foul odor in her biliary tube. The daughter notes that she has a history of an MCA aneurysm in the distant past status post clipping with subsequent seizures. The patient takes Topamax for those. Review of past medical records show that the patient was seen by Dr. Steele in the past for some very similar presentation, some somnolence and confusion at that time, was found to be in acute renal failure. She also follows with Dr. Moraes. She was last seen by him in 2019 and at that time was noted to not be doing as well although she did not apparently have any seizures. In the ER, she had a CT of the head, which showed a white matter disease and an aneurysm clipping on the right MCA. No internal carotid artery stenosis. No aneurysm or vascular malformations, occlusion or stenosis of the visualized intracranial circulation noted in CT and CT angiogram. I was called because the patient was complaining of some double vision and the ER doctor noted some nystagmus. When I went in to see her , she was initially very sleepy, but as we talked, she began to wake up more. Initially, she was telling me that she saw double, but after we got her glasses on she noted no significant double vision. She did not endorse any headaches, any nausea or vomiting, any abdominal pain, any urinary symptoms, no shortness of breath or chest pain. She did feel very somnolent and weak. Otherwise, she denied any problems. Based on this presentation, the patient was going to be admitted for further workup. The daughter states that she does not think that the patient had a seizure today. The patient also does not think she has a seizure although she could not remember the last time she did have a seizure. She notes being compliant with her medication. Apparently, in the ER, she was given some Narcan with no real improvement in her mental status initially. PAST MEDICAL HISTORY: Her past medical history as noted above. In addition, she has a history of atrial fibrillation on anticoagulation. The seizure disorder is noted on Topamax, COPD, status post cholecystectomy. MEDICATIONS: Current medications include: 1. Warfarin 5 mg p.o. daily. 2. Torsemide 10 mg p.o. daily. 3. Topiramate 100 mg in the morning and 150 mg at bedtime. 4. Seroquel 100 mg at bedtime. 5. Multivitamin. 6. Metoprolol. 7. Meclizine 25 mg p.o. t.i.d. as needed for vertigo. 8. Loperamide. 9. Duloxetine DR 120 mg p.o. daily. 10. Cyclobenzaprine 2 mg p.o. t.i.d. as needed. 11. Albuterol. ALLERGIES: To ADHESIVE TAPE, ASPIRIN, PENICILLIN, PHENYTOIN. FAMILY HISTORY: Significant for parents who were killed in an accident. SOCIAL HISTORY: Previous tobacco use. Now, she smokes marijuana. Recently smoked marijuana yesterday. She has a history of alcohol abuse and apparently had some drinks yesterday. Her daughter Britany is at the bedside. Initial surrogate decision maker. REVIEW OF SYSTEMS: Her review of systems in 14-organ systems was difficult because of her mental status that was noted above. PHYSICAL EXAMINATION: Vital Signs: Temperature is 97.6, heart rate is 90 to 95. Respiratory rate is 14 to 16. She is saturating 99% to 100% on room air. Blood pressure is 111/81 to 118/65. In general, she is a poorly nourished, well - developed female sitting in her hospital bed with head at approximately 45 degrees. She is very somnolent and difficult to arouse initially, but as the interview went on, she was more awake and able to answer questions. She is somewhat disheveled and appears somewhat icteric and jaundiced. Her neck is supple. No thyromegaly. No carotid bruits. No meningismus. Chest: Clear to auscultation bilaterally. Cardiovascular: Irregularly irregular without murmurs. Abdomen is somewhat distended. She has a percutaneous drain in place. Skin is slightly yellow, warm to the touch and dry. On neurologic exam , again very somnolent initially, but subsequently woke up more. She is oriented x3. Once she woke up, her speech was initially slurred, but cleared. She has some recall of remote events. She did admit to smoking marijuana yesterday. Her mood is dysthymic. Affect is mood congruent. Cranial Nerves: Pupils are equally round and reactive to light and accommodation. Extraocular muscles appear to be intact. Initially, she appeared to have some strabismus with lateral gaze, but this cleared after she woke up. She did have 2 to 3 beats of lateral gaze nystagmus bilaterally. Her visual dunn appear to be full. Facial sensation intact. Face is symmetric. Oropharynx: Her palate raises symmetrically. Tongue is midline. Motor Exam: She spontaneously moves all extremities antigravity. She has decreased tone throughout, but she does have good resistance. She has no drift in the upper or lower extremities. DTRs were 1+ and symmetric at the biceps, triceps, brachioradialis, 2+ at the patella , 1+ at the ankles, absent Babinski's. [id number] and rapid alternating movements were difficult and slow, but no tremors were appreciated. There was no asterixes appreciated. Sensation was grossly intact to light touch and pain x4. There was no focal deficits. Gait was not tested because of her weakness. DIAGNOSTIC STUDIES/LAB DATA: Lab results include a white count of 6.3, hemoglobin of 11.4, hematocrit of 33, and platelet count of 272, MPV of 7.0. Coagulations, an INR of 3.44, PTT of 60.6. Complete metabolic profile with a potassium of 3.3, carbon dioxide of 21, creatinine of 0.43, glucose of 114. Lactic acid of 0.6, calcium of 7.8, total bili of 1.9, ionized calcium of 1.19, alk phos of 178. C- reactive protein of 49.09, total protein of 4.6, albumin of 2.6. Urine was negative. Toxicology positive for opiates, benzodiazepines and cannabinoids. Serum alcohol was less than 10. Imaging: As noted above in the HPI. ASSESSMENT AND PLAN: Ms. Anaya is a 63-year-old female with a history of atrial fibrillation on Coumadin, history of chronic obstructive pulmonary disease, status post Mao-en-Y in the past with recent Escherichia coli septicemia secondary to cholangitis with percutaneous drain placement and a possible pancreatic malignancy recently seen in our ER for weakness and transferred back to [facility] where she was discharged and came back today with profound somnolence, altered mental status. She reported smoking marijuana yesterday. There was also some concern that she may have been drinking. She is on chronic pain medication and apparently took "4 Ativan." When she came in initially, she was very somnolent, but after I saw her, she seemed to be waking up more and more appropriate. She was given Narcan with no real improvement initially. She was noted to have some double vision by the ER doc as well as nystagmus. When I put her glasses on, the double vision seemed to be better. Initially saw some strabismus, but that seemed to clear as well. I suspect that her altered mental status and somnolence is due to delayed clearance of multiple sedating medications including opioids, Ativan, alcohol and marijuana use. She does have an elevated CRP on lab work, which is consistent with an inflammatory process, possibly related to her recent biliary problems. There is some report that she may be draining some smelly bile and I defer to the primary team regarding workup. She is hemodynamically stable. She is afebrile and her white count seems to be okay today. My suspicion that she has some underlying infection is low. Given the fact that she did improve while I was sitting there talking to her and her daughter, I suspect that this is likely just a delayed clearance of medication with delayed clearing of her mental status. She does have a history of seizures. I am going to check a Topamax level tomorrow, but there has been no reported seizures and my suspicion for new seizures or postictal state is low. I would minimize her pain medications as much as possible. She takes Seroquel at night and that is something that depending on how she sleeps and how somnolent she is in the morning that we may want to hold. In addition, I would minimize any sedating meds such as cyclobenzaprine, which is noted that she is on at home. I will make sure that she is getting thiamine and folic acid given her history of drinking and monitor her closely on telemetry overnight. My suspicion for stroke is very low, but we can consider repeating a CT scan tomorrow if she develops any lateralizing symptoms or her symptoms do not improve. She is unable to have an MRI because her MCA aneurysm on the right was clipped in 1990 and it is apparently a non-MRI compatible aneurysm clip. I will continue to follow her and make further recommendations as necessary. Thank you for the opportunity to participate in the care of this very interesting patient. [id number]/[facility] #: [id number] MIGUEL
--- NOTE | 2019-02-22 23:30 | HP ---
CC: Dr. Martin * HISTORY AND PHYSICAL: DATE OF ADMISSION: 02/22/19 TIME OF EVALUATION: 5:05 p.m. PRIMARY CARE PROVIDER: Dr. Martin. CHIEF COMPLAINT: "She is confused" as per the daughter. HISTORY OF PRESENT ILLNESS: Mrs. Anaya is a 63-year-old female with a past medical history of COPD, seizure disorder, atrial fibrillation; on anticoagulation, recent admission to [facility] with cholangitis, E. coli septicemia; status post percutaneous drainage who presented to the emergency room with lethargy. The patient has had a very complicated medical history since early January. She initially presented to [facility] on 01/21/19 with complaints of jaundice. She was found to have severe biliary dilatation extending to the level of the ampulla. At that point, she was transferred from our emergency room to [facility] for further evaluation and possible ERCP. There are no records available at this time, but the patient's daughter (Britany ) reports that the patient had an ERCP that was attempted and it was not successful as the patient had a Mao-en-Y in the past. She was diagnosed with E. coli septicemia, treated with aztreonam and clindamycin. She had a percutaneous drain placed and there was some concern for possible malignancy, unclear if hepatic or pancreatic. She was discharged to [facility], where she completed her treatment with aztreonam and after finishing the antibiotics, she was discharged to home. She presented to the [facility] ED on 02/14/19 with complaints of weakness. At that point, the impression was that she was dehydrated in the setting of diuretic use and poor oral intake. She had acute kidney injury, electrolyte imbalance, and her daughter reported that her biliary drainage was "smelly," so recommended that the patient be transferred to [facility] for further evaluation. The daughter states that she was admitted overnight, received IV fluids, and was discharged home the next day. She was seen by oncology at [place] as an outpatient and the daughter was told that it is unclear if she has a malignancy and, if she does, what the primary is. The patient is scheduled to have a PET scan as an outpatient and also had some tumor markers sent as an outpatient. The patient's daughter states that she has been doing well, so well that at this point she has returned to be by herself during the day, and at night, her daughter will pick her up and take her to the daughter's home to spend the night there. Yesterday, when she called to tell her mother that she was going to pick her up, she states that her mother sounded intoxicated on the phone as she had had some alcohol. When she got to the patient's home, the daughter noted that she was lethargic and the patient denied having any alcohol, but she did take 4 Ativan during the day, took her Tylenol with Codeine, and reportedly smoked marijuana with a friend. This morning, the patient was too lethargic, did not eat anything and as it persisted as the day went by, the daughter brought her in for further evaluation. At the time of my evaluation, the patient is sleeping, but arousable to voice. She is oriented to self and place. She had some complaints of diplopia while in the ED, but she tells me that this has now resolved. She denies chest pain, palpitation, shortness of breath, nausea, vomiting, abdominal pain, urinary complaints, or diarrhea. PAST MEDICAL HISTORY: 1. Recent episode of cholangitis with E. coli septicemia as described above. 2. COPD. 3. Seizure disorder. 4. Atrial fibrillation, on anticoagulation. 5. Status post Mao-en-Y. 6. Status post cholecystectomy. 7. History of brain aneurysm in . MEDICATIONS: 1. Acetaminophen with codeine 1 to 2 tablets p.o. b.i.d. as needed for pain. 2. Albuterol HFA 2 puffs inhaled q.4 hours p.r.n. for shortness of breath. 3. Cyclobenzaprine 10 mg p.o. t.i.d. as needed for spasms. 4. Duloxetine DR 120 mg p.o. daily. 5. Bevespi 2 puffs inhaled b.i.d. 6. Loperamide 2 mg p.o. t.i.d. 7. Lorazepam 1 mg p.o. b.i.d. as needed for anxiety. 8. Meclizine 25 to 50 mg p.o. at bedtime as needed for dizziness. 9. Metoprolol succinate 25 mg p.o. daily. 10. Montelukast 10 mg p.o. daily. 11. Multivitamin with iron 1 tablet p.o. daily. 12. Seroquel 100 mg p.o. at bedtime. 13. Topiramate 100 mg p.o. in the morning and 150 mg p.o. at bedtime. 14. Warfarin 2.5 mg p.o. daily. ALLERGIES: ADHESIVE TAPE, ASPIRIN, PENICILLIN, and PHENYTOIN. FAMILY HISTORY: Both parents were in a motor vehicle accident. SOCIAL HISTORY: The patient was a smoker of half a pack a day for more than 30 years. She also smokes marijuana frequently. This has decreased since she became sick earlier in January. The patient's daughter states that she used to drink 3 to 4 six-packs in a week, but since she got sick in January, she has not had any alcohol. Surrogate decision maker is her daughter, Britany Lee, phone number is [phone]. REVIEW OF SYSTEMS: Limited due to the patient's lethargy, but all the positive and negatives findings I was able to get from her daughter are in the HPI. PHYSICAL EXAMINATION GENERAL: The patient is an elderly lady who appears older than stated age, lying on the stretcher, in no acute distress, sleeping. VITAL SIGNS: Temperature 97.5, heart rate is 87, respiratory rate is 14, oxygen saturation is 99% on room air, blood pressure is 111/81. HEENT: Pupils are mydriatic and reactive to light. Extraocular movements are intact. Moist mucous membranes. CHEST: Breath sounds bilaterally with no added sounds. CARDIOVASCULAR: Normal S1 and S2, irregularly irregular. ABDOMEN: Soft, nontender, nondistended. Bowel sounds are present. There is a clean dressing over her percutaneous drain in her right upper quadrant. EXTREMITIES: There are chronic skin changes of the lower extremities, but no pitting edema. NEUROLOGIC: The patient is lethargic, arousable to voice, oriented to self and place. She can follow simple commands. Face is symmetric. She is able to move all 4 extremities. DIAGNOSTIC STUDIES/LAB DATA: The patient had a CBC that showed WBC of 6.3, hemoglobin of 11.4, hematocrit of 33, platelets of 272,000. INR was 3.4. Chemistry showed sodium of 146, potassium of 3.3, chloride of 109, bicarbonate of 21, BUN of 14, creatinine of 0.4, glucose of 114, lactic acid of 0.6, calcium of 7.8. LFTs showed total bilirubin of 1.9, AST of 22, ALT of 15, alkaline phosphatase of 178, ammonia of 35. Troponin is 0. CRP is 49. Urinalysis was negative. Urine toxicology was positive for opiates, benzodiazepines, and cannabinoids. Serum alcohol level was less than 10. CT of the brain/CTA of the head and neck showed atherosclerosis status post aneurysm clipping on the right. No internal carotid artery stenosis by NASCET criteria. No aneurysm, vascular malformation, occlusion, or stenosis of the visualized intracranial circulation. EKG done on 02/22/19 at 12:29 p.m. showed sinus rhythm at 92 beats per minute with no acute ischemic changes and this is unchanged from her prior EKG from June 2017. ASSESSMENT AND PLAN: Mrs. Anaya is a 63-year-old female with a complex past medical history that includes chronic obstructive pulmonary disease, seizure disorder, atrial fibrillation; on anticoagulation, status post Mao-en-Y, status post cholecystectomy, recent admission to [facility] for cholangitis with Escherichia coli septicemia requiring percutaneous drainage placement with suspicion for possible malignancy and another recent admission for acute kidney injury and dehydration secondary to torsemide and poor oral intake who presented to the emergency room with lethargy after using her prescribed Ativan , Tylenol with Codeine, and smoking marijuana with a friend. 1. Metabolic encephalopathy. This is multifactorial in the setting of medication use, drug use, and liver disease. The patient was seen in consultation by neurology and there is no focal deficit. They agreed that this is likely metabolic in nature and may take a little longer to clear due to her liver disease. She will be admitted under observation to the telemetry floor. We will continue to monitor her. I am going to hold her sedating medications for now. If her lethargy persists, we may have to pursue a repeat CAT scan as the patient cannot have an MRI due to her aneurysm clip. We will continue IV fluids and supportive care. 2. Chronic obstructive pulmonary disease is stable. We will continue bronchodilators. 3. Depression. We will continue duloxetine. 4. Hypokalemia. We will replete. 5. Seizure disorder. We will continue topiramate. 6. Atrial fibrillation. The patient is in sinus rhythm at this time. We will continue metoprolol. Her INR is supratherapeutic, so I am holding her warfarin for now and we will repeat her INR tomorrow morning. 7. DVT prophylaxis. The patient has a score of 3 on the DVT Prophylaxis Risk Assessment Guide and she is already anticoagulated with warfarin. 8. Code status is full. TIME SPENT: Approximately 60 minutes were spent with the patient interview, medical records review, and physical examination to complete this admission. More than half this time was spent [id number] with the patient in coordination of care. [id number]/[facility] #: [id number] MIGUEL
[2019-02-23] MEDS: NS 0.9% 1000 ML** 1,000 ML IV SCH (04:15)
[2019-02-23 05:18] LABS: ABS Eosinophils 0.2 10^3/ul (0-0.6); ABS Monocytes 0.4 10^3/ul (0-0.8); ABS Neutrophils 3.5 10^3/ul (1.5-7.7); Eosinophil % 3.3 %; Hematocrit 35 % (35-47); Hemoglobin 11.9 g/dL (12.0-16.0); Lymphocyte % 41.2 %; Mean Corpuscular HGB Conc 34 g/dL (31-36); Mean Corpuscular Hemoglobin 33 pg (27-31); Mean Corpuscular Volume 99 fL (80-97); Mean Platelet Volume 7.3 fL (7.4-10.4); Platelet Count 303 10^3/uL (150-450); Red Blood Count 3.56 10^6 /uL (3.70-4.87); Red Cell Distribution Width 14 % (10-15); White Blood Count 7.2 10^3/uL (3.5-10.8)
[2019-02-23 05:21] LABS: INR 2.84 (0.82-1.09)
[2019-02-23 05:34] LABS: BUN/Creatinine Ratio 26.1 (8-20); Calcium 8.1 mg/dL (8.6-10.3); EGFR Non-African American 136.3 (>60); Potassium 4.4 mmol/L (3.5-5.0)
--- NOTE | 2019-02-23 08:25 | PN ---
Subjective Date of Service: 02/23/19 Length of Stay: 1 Days Interval History: Overnight, she did well. Her mental status has seemed to clear and this morning she is more awake and alert and she is oriented to person, place, time. She denies any current pain or other symptoms. She does not complain of double vision, dizziness, headaches, abdominal pain, nausea, chest pain, shortness of breath. She is anxious to go home. When asked why she was so sleepy last night, she states that "a friend gave me some pot." She also admits to taking multiple Ativan. Tele: No events overnight. Objective Active Medications: Albuterol (Ventolin Hfa Inhaler*) 2 puff INH Q4HR PRN PRN Reason: SOB/WHEEZING Duloxetine HCl (Cymbalta Cap*) 120 mg PO DAILY [facility] Sodium Chloride (Ns 0.9% 1000 Ml) 1,000 mls @ 100 mls/hr IV PER RATE [facility] Last Admin: 02/23/19 04:15 Dose: 100 mls/hr Loperamide HCl (Imodium Cap*) 2 mg PO TID [facility] Last Admin: 02/22/19 21:22 Dose: Not Given Meclizine HCl (Antivert Tab*) 25 mg PO BEDTIME PRN PRN Reason: VERTIGO Metoprolol Succinate (Toprol Xl Tab*) 25 mg PO DAILY [facility] Montelukast Sodium (Singulair Tab*) 10 mg PO DAILY [facility] Multivitamins (Theragran Tab*) 1 tab PO DAILY [facility] Tiotropium [place]/Olodaterol (Stiolto Respimat Inh [place] (60 Puff)) 2 puff INH DAILY [facility] Topiramate (Topamax(*)) 150 mg PO BEDTIME [facility] Last Admin: 02/22/19 21:14 Dose: 150 mg Topiramate (Topamax(*)) 100 mg PO QAM [facility] Vital Signs 02/22/19 02/22/19 02/22/19 11:57 12:21 13:03 Temperature 97.4 F Pulse Rate 98 91 Respiratory 16 Rate Blood Pressure 104/62 102/63 (mmHg) O2 Sat by Pulse 96 94 Oximetry 02/22/19 02/22/19 02/22/19 13:11 13:32 14:00 Temperature Pulse Rate 90 88 84 Respiratory Rate Blood Pressure 96/62 (mmHg) O2 Sat by Pulse 95 94 97 Oximetry 02/22/19 02/22/19 02/22/19 14:02 14:32 15:00 Temperature Pulse Rate 85 84 85 Respiratory Rate Blood Pressure 99/65 105/68 (mmHg) O2 Sat by Pulse 97 98 98 Oximetry 02/22/19 02/22/19 02/22/19 15:02 15:32 16:00 Temperature Pulse Rate 84 84 83 Respiratory Rate Blood Pressure 105/66 91/57 (mmHg) O2 Sat by Pulse 98 100 99 Oximetry 02/22/19 02/22/19 02/22/19 16:02 16:32 17:00 Temperature Pulse Rate 82 84 85 Respiratory Rate Blood Pressure 116/72 102/68 (mmHg) O2 Sat by Pulse 99 99 98 Oximetry 02/22/19 02/22/19 02/22/19 17:02 17:32 17:35 Temperature 97.5 F Pulse Rate 85 94 87 Respiratory 14 Rate Blood Pressure 121/77 111/81 111/81 (mmHg) O2 Sat by Pulse 99 99 99 Oximetry 02/22/19 02/22/19 02/22/19 18:04 19:42 21:22 Temperature 97.6 F 97.5 F Pulse Rate 92 89 Respiratory 16 16 20 Rate Blood Pressure 118/65 119/68 (mmHg) O2 Sat by Pulse 100 100 Oximetry 02/22/19 02/23/19 02/23/19 23:34 03:23 07:53 Temperature 97.1 F 97.6 F 98.2 F Pulse Rate 88 90 104 Respiratory 16 16 16 Rate Blood Pressure 125/90 105/61 108/65 (mmHg) O2 Sat by Pulse 100 100 99 Oximetry Intake and Output Last 24 Hours 02/21/19 02/22/19 02/23/19 02/24/19 06:59 06:59 06:59 06:59 Intake Total 2402 Output Total 550 Balance 1852 Weight 162 lb 8 oz Intake: IV Fluids 969 IVPB 233 Oral 1200 Output: J Tube 300 T Tube 250 Urine 0 Oxygen Devices in Use Now: None Neurology Exam: General: Thin, frail, NAD HEENT: Normocephelic/atraumatic, sclera anicteric, cataracts bilaterally, mucous membranes moist Neck: Supple Chest: Clear to auscultation bilaterally Cardiovascular: Regular rate and rhythm without murmurs, rubs, gallops Abdomen: Percutaneous drain in place. Extremities: LE erythema bilaterally and some swelling. Skin: Appears mildly jaundiced Neurological Findings: Awake, alert, and oriented to person, place, and time. Speech: fluent without dysarthria, repetition intact Cranial Nerve: PERRL, EOM intact, VFF, lateral gaze nystagmus bilaterally 4-5 beats, face symmetric bilaterally, facial sensation intact, hearing intact to finger rub bilaterally, palate elevates symmetrically, tongue midline Motor: Moving all extremities antigravity without drift. Good resistance, 4+ and symmetric Sensation: Intact to LT/PP in the arms and legs Finger to nose, rapid alternating movements intact without tremor. No resting tremor. No asterixis Result Diagrams: 02/23/19 05:02 02/23/19 05:02 Assessment/Plan Ms. Anaya is a 63-year-old female with a history of atrial fibrillation on Coumadin, history of chronic obstructive pulmonary disease, status post Mao-en- Y in the past with recent Escherichia coli septicemia secondary to cholangitis with percutaneous drain placement and a possible pancreatic malignancy recently seen in our ER for weakness and transferred back to [facility] where she was discharged and came back today with profound somnolence, altered mental status. She reported smoking marijuana yesterday. There was also some concern that she may have been drinking. She is on chronic pain medication and apparently took "4 Ativan." When she came in initially, she was very somnolent, but after I saw her, she seemed to be waking up more and more appropriate. She was given Narcan with no real improvement initially. She was noted to have some double vision by the ER doc as well as nystagmus. When I put her glasses on, the double vision seemed to be better. Initially saw some strabismus, but that seemed to clear as well. This morning, she appears improved. 1. AMS: I suspect an acute encephalopathy likely multifactorial in part secondary to polypharmacy and substance use. She also has liver dysfunction and might be slow to clear meds. In any event, from a mental status standpoint , she is much less somnolent, is oriented X 3 and seems improved, "feels better. " --Continue supportive care --Minimize sedation medications --Discussed with her the importance of smoking cessation, including marijuana --History of EtOH use: unclear if she was drinking in the last few days. Watch for evidence of W/D. Would continue to supplement Thiamine/Folic Acid. --History of seizures: has been generally well controlled on Topamax--continue current dose, level pending. Will need follow up with Dr. Moraes as outpatient. My suspicion for seizure as the cause of her AMS is low. 2. Diplopia: Unclear etiology. She continues to have significant lateral gaze nystagmus bilaterally, and reports double vision with far left and right lateral gaze. There does not appear to be any misalignment of her eyes and EOM appear intact. VFF Consider new stroke. Will consider repeat CT brain at 24 hours to look for evidence of evolving stroke. Unable to have an MRI due to prior right MCA aneursym clipping (non-compatible). 3. History of cholangitis with prior E.coli septicemia and percutaneous drain. No signs of acute infection but reports of recent foul smelling drainage and CRP is elevated. She is hemodynamically stable at this point.. Defer to primary team regarding management. Her LFTs are elevated but Ammonia is normal. 4. Suspected pancreatic mass: Workup in progress. She sees GI at [facility]. 5. LE swelling. History of edema. Consider LE U/S to rule out DVT. Defer to Hospitalist team. 6. A.fib: On chronic coumadin. INR was elevated but is coming down. Restart when therapeutic. Group Home, if her liver issues persist or worsen, she may need an alternative anticoagulant.
[2019-02-23] MEDS: Tiotropium Brom/Olodaterol MDI INH SCH (08:28)
[2019-02-23] MEDS: DULoxetine DR CAP* 60 MG CAP.DR PO SCH (09:29)
[2019-02-23] MEDS: Metoprolol Succinate XL TAB* 25 MG PO SCH (09:30)
[2019-02-23] MEDS: Montelukast Sodium TAB* 10 MG PO SCH (09:30)
[2019-02-23] MEDS: Loperamide CAP* 2 MG PO SCH ×3 (09:30→20:59)
[2019-02-23] MEDS: Vitamin THERAPEUTIC TAB PO SCH (09:30)
[2019-02-23] MEDS: Topiramate TAB(*) 100 MG PO SCH ×2 (09:31→21:00)
--- NOTE | 2019-02-23 15:27 | PN ---
Subjective Date of Service: 02/23/19 Interval History: Ms. Anaya is feeling much better today, but she is unable to further elaborate. She does not remember any of the events from yesterday. Slept well overnight. Denies WATERS, dizziness. Reports double vision bilaterally when objects are moving , but not while still. No CP or SOB. No concerns from nursing. Family History: Unchanged from Admission Social History: Unchanged from Admission Past Medical History: Unchanged from Admission Objective Active Medications: Albuterol (Ventolin Hfa Inhaler*) 2 puff INH Q4HR PRN SOB/WHEEZING Duloxetine HCl (Cymbalta Cap*) 120 mg PO DAILY [facility] Sodium Chloride (Ns 0.9% 1000 Ml) 1,000 mls @ 100 mls/hr IV PER RATE [facility] Loperamide HCl (Imodium Cap*) 2 mg PO TID [facility] Meclizine HCl (Antivert Tab*) 25 mg PO BEDTIME PRN [facility] Metoprolol Succinate (Toprol Xl Tab*) 25 mg PO DAILY [facility] Montelukast Sodium (Singulair Tab*) 10 mg PO DAILY [facility] Multivitamins (Theragran Tab*) 1 tab PO DAILY [facility] Tiotropium [place]/Olodaterol (Stiolto Respimat Inh [place] (60 Puff)) 2 puff INH DAILY [facility] Topiramate (Topamax(*)) 150 mg PO BEDTIME [facility] Topiramate (Topamax(*)) 100 mg PO QAM [facility] Vital Signs - 8 hr 02/23/19 02/23/19 02/23/19 07:53 09:30 11:40 Temperature 98.2 F 98.4 F Pulse Rate 104 98 Respiratory 16 16 16 Rate Blood Pressure 108/65 111/61 (mmHg) O2 Sat by Pulse 99 100 Oximetry Oxygen Devices in Use Now: None Appearance: Middle-aged female sitting in bed in NAD Ears/Nose/Mouth/Throat: Mucous Membranes Moist Neck: NL Appearance and Movements; NL JVP, Trachea Midline Respiratory: Symmetrical Chest Expansion and Respiratory Effort, Clear to Auscultation Cardiovascular: NL Sounds; No Murmurs; No JVD, RRR Abdominal: NL Sounds; No Tenderness; No Distention Neurological: Alert and Oriented x 3 Lines/Tubes/Other Access: Clean, Dry and Intact Peripheral IV Nutrition: Taking PO's Result Diagrams: 02/23/19 05:02 02/23/19 05:02 Assess/Plan/Problems-Billing Assessment: Ms. Anaya is a 63 yo F with PMH of cholangitis s/p percutaneous drain, COPD, seizures, afib on AC, brain aneurysm s/p clipping; who presented to the ED with AMS d/t suspected medication overdose. - Patient Problems (1) Toxic encephalopathy Code(s): G92 - TOXIC ENCEPHALOPATHY Comment: - Secondary to alcohol, lorazepam, codeine, marijuana (supported by urine tox screen) - Significantly improved today, only c/o diplopia - Appreciate Neuro consult; does not recommend any f/u imaging - Supportive care, minimize use of sedating medications (2) Seizure disorder Code(s): G40.909 - EPILEPSY, UNSP, NOT INTRACTABLE, WITHOUT STATUS EPILEPTICUS Comment: - No evidence of seizure activity - Continue Topamax (3) History of cholangitis Code(s): Z87.19 - PERSONAL HISTORY OF OTHER DISEASES OF THE DIGESTIVE SYSTEM Comment: - Recently treated for cholangitis and septicemia with concern for malignancy, s /p percutaneous drain placement - Follows with [facility] - No acute concerns, but liver disease is likely contributing factor to AMS d/t poor drug metabolism (4) Atrial fibrillation Code(s): I48.91 - UNSPECIFIED ATRIAL FIBRILLATION Comment: - Rate controlled - Continue metoprolol; resume Coumadin (5) COPD (chronic obstructive pulmonary disease) Code(s): J44.9 - CHRONIC OBSTRUCTIVE PULMONARY DISEASE, UNSPECIFIED Comment: - Not on maintenance inhalers - Continue albuterol PRN (6) Depression Code(s): F32.9 - MAJOR DEPRESSIVE DISORDER, SINGLE EPISODE, UNSPECIFIED Comment: - Continue duloxetine (7) DVT prophylaxis Code(s): Z29.9 - ENCOUNTER FOR PROPHYLACTIC MEASURES, UNSPECIFIED Comment: - Coumadin (8) Full code status Code(s): Z78.9 - OTHER SPECIFIED HEALTH STATUS Comment: Status and Disposition: Observation. Anticipate d/c home when medically stable, hopefully tomorrow. Attending: Megan Fernandez
[2019-02-23] MEDS: Warfarin TAB(*) 2.5 MG PO SCH (16:13)
[2019-02-24 07:27] LABS: INR 3.01 (0.82-1.09)
[2019-02-24 07:30] LABS: BUN/Creatinine Ratio 25.5 (8-20); Calcium 7.9 mg/dL (8.6-10.3); EGFR African American 160.9 (>60); Potassium 3.9 mmol/L (3.5-5.0)
[2019-02-24] MEDS: Tiotropium Brom/Olodaterol MDI INH SCH (08:27)
[2019-02-24] MEDS: Topiramate TAB(*) 100 MG PO SCH (10:10)
[2019-02-24] MEDS: DULoxetine DR CAP* 60 MG CAP.DR PO SCH (10:11)
[2019-02-24] MEDS: Metoprolol Succinate XL TAB* 25 MG PO SCH (10:11)
[2019-02-24] MEDS: Vitamin THERAPEUTIC TAB PO SCH (10:11)
[2019-02-24] MEDS: Loperamide CAP* 2 MG PO SCH ×2 (10:11→16:38)
[2019-02-24] MEDS: Montelukast Sodium TAB* 10 MG PO SCH (10:12)
[2019-02-24] MEDS: Warfarin TAB(*) 2.5 MG PO SCH (16:38)
[2019-02-24 20:39] VITALS: BP 108/58
--- NOTE | 2019-02-24 21:24 | DS ---
CC: Dr. Santy Martin * DISCHARGE SUMMARY: DATE OF ADMISSION: 02/22/19 DATE OF DISCHARGE: 02/24/19 PRIMARY CARE PROVIDER: Dr. Santy Martin. ATTENDING PHYSICIAN: Dr. Radha De La Cruz.* (DICTATED BY NAMAN ARAGON NP) PRIMARY DIAGNOSIS: 1. Toxic encephalopathy secondary to unintentional overdose. SECONDARY DIAGNOSES: 1. Seizure disorder. 2. History of cholangitis with a percutaneous drain in place. 3. Atrial fibrillation. 4. Chronic obstructive pulmonary disease. 5. Depression. STUDIES WHILE IN THE HOSPITAL: 1. Brain CT on 02/22/19 reads as atherosclerosis. 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 No internal carotid artery stenosis by NASCET criteria. No aneurysm, vascular malformation, occlusion, or stenosis of the visualized intracranial circulation. 2. EKG on 02/22/19 shows normal sinus rhythm at a rate of 92, QTc 445, no ST changes. 3. Head CTA on 02/22/19 reads as the same as above brain CT. 4. Bilateral lower extremity venous Doppler study on 02/23/19 reads as no evidence for deep vein thrombosis. HISTORY OF PRESENT ILLNESS AND HOSPITAL COURSE: Ms. Anaya is a 63-year-old female with past medical history of cholangitis with recent septicemia, COPD, seizures, AFib, and aneurysm status post clipping; who presented to the emergency room on 02/22/19 with complaints of altered mental status. Please see the history and physical by Dr. De La Cruz for complete summary of the events leading up to this hospitalization. In short, the patient has recently been hospitalized at [facility] due to cholangitis and at that time she did have a percutaneous drain placed. There is reportedly concern for some sort of malignancy and she is being followed by Oncology and Gastroenterology as an outpatient. On the day of admission, the patient had reportedly been doing well though appears to have had an unintentional overdose with alcohol, lorazepam, codeine, and marijuana. The latter 3 of which are supported by urine tox screen results. The patient's mental status was quite altered on admission and it was suspected that she would take longer to clear these medications due to impaired hepatic function. She was admitted by the hospitalist service. The patient was seen by Dr. Dorantes from Neurology. On the day of admission and the following day, the patient's mental status improved significantly as of yesterday 02/23/19 her only complaint was some double vision, which ultimately resolved later in the day. At that point, Dr. Dorantes felt as though the patient was stable from a neurological perspective. He did believe that all of her symptoms were secondary to polypharmacy and substance use and not any acute neurological disorder. He felt as though it was reasonable to observe the patient for an additional night here in the hospital with likely discharge home the following morning as long as symptoms did not recur. As of this morning, the patient reports feeling well. She has no focal neurological deficits and she is alert and oriented x4. I did speak with the patient's daughter who is agreeable to bringing the patient home and managing her medications from here on to ensure that the patient is not taking too many medications. The patient also has been counseled to stop using marijuana. PHYSICAL EXAMINATION: Her heart has a regular rate and rhythm without murmurs, rubs, or gallops. Lungs are clear to auscultation without rhonchi, wheezes, or rubs. Bilateral lower extremities have mild nonpitting edema. There is a percutaneous drain in place to the left upper quadrant draining brown fluid. Physical exam was otherwise benign. Ms. Anaya is stable for discharge today. Most recent vitals signs are as follows: Temp 97.8, heart rate 90, respiratory rate 20, oxygen saturation 100% on room air, blood pressure 114/63. DISCHARGE MEDICATIONS: Changed medications: 1. Coumadin 2 mg p.o. daily (previously was 2.5 mg daily). Continued medications: 1. Albuterol MDI 2 puffs q.4 hours p.r.n. shortness of breath or wheezing. 2. Duloxetine 120 mg p.o. daily. 3. Bevespi 2 puffs b.i.d. 4. Imodium 2 mg p.o. t.i.d. 5. Meclizine 25 to 50 mg p.o. at bedtime p.r.n. vertigo. 6. Metoprolol succinate 25 mg p.o. daily. 7. Singulair 10 mg p.o. daily. 8. Multivitamin 1 tab p.o. daily. 9. Topamax 150 mg p.o. at bedtime. 10. Topamax 100 mg p.o. in the morning. 11. Acetaminophen with codeine #3 one to two tabs p.o. b.i.d. p.r.n. pain. 12. Flexeril 10 mg p.o. t.i.d. p.r.n. spasms. 13. Lorazepam 1 mg p.o. b.i.d. p.r.n. anxiety. 14. Seroquel 100 mg p.o. at bedtime. DISCHARGE PLAN: Ms. Anaya will be discharged home in the care of her daughter. Activity will be as tolerated. Diet will be heart healthy. Medications are noted above. The patient's INR today was noted to be 3.01, so I have decreased her Coumadin from 2.5 to 2 mg. She will need to follow up with her primary care provider regarding further dosing of Coumadin as she usually does as an outpatient. Her medications otherwise remain unchanged. The daughter is agreeable to managing all of the patient's medications in hopes of avoiding any further unintentional overdoses or mixing of medications. The patient has been counseled to abstain from smoking marijuana and the daughter is also aware and agreeable to this plan. She will need to follow up with her cable mock up assembler and oncologist as previously advised. She will need to follow up with her primary care provider in the next 4 to 7 days and her daughter reports that she does have an appointment already scheduled for 02/27/19. I have advised her that they should keep this appointment. The patient should return to the emergency room or the nearest hospital for any worsening of symptoms, shortness of breath, lightheadedness, dizziness, chest discomfort, high fevers, chills, night sweats, loss of consciousness, or any other worrisome signs or symptoms. DISCHARGE CONDITION: Stable. DISCHARGE DISPOSITION: Home. This is summarized report of a complex medical history and hospital stay. For further details please see the entire medical record. TIME SPENT: Approximately 45 minutes were spent on this discharge. NAMAN ARAGON NP [id number]/CPS #: [id number]
== END 2019-02-24 18:00 | disposition home or self-care (01) ==
LOC: ED 11:55 → MEDTELE 17:09
PROVIDERS: ADMIT Internal Medicine; ATTEND Internal Medicine
DX: G92 Toxic encephalopathy (principal); G40.909 Epilepsy, unspecified, not intractable, without status epilepticus; K83.09 Other cholangitis; I48.91 Unspecified atrial fibrillation; J44.9 Chronic obstructive pulmonary disease, unspecified; F32.9 Major depressive disorder, single episode, unspecified; Z79.899 Other long term (current) drug therapy; Z96.89 Presence of other specified functional implants; I10 Essential (primary) hypertension; F17.210 Nicotine dependence, cigarettes, uncomplicated; Z87.19 Personal history of other diseases of the digestive system; Z79.01 Long term (current) use of anticoagulants
CPT/HCPCS: 36415; 70450; 70496; 70498; 80048; 80053; 80201; 80307; 80320; 81003; 82140; 82330; 83605; 84484; 85025; 85610; 85730; 86140; 93005; 93970; 96361; 96365; 96366; 96375; 99285; A9270-GY; G0378; G0480; J2310; J3411; J3480; J3535; Q9967

== ENCOUNTER 2019-02-25 17:55 | Emergency (ER) | payer MEDICARE, MEDICAID ==
--- NOTE | 2019-02-25 21:21 | ED ---
Complex/Multi-Sys Presentation - HPI Summary HPI Summary: Patient is a 63 y/o F presenting to [facility] with chief complaint of altered mental status. The patient had been evaluated in [facility] a few days ago for the same complaint. Patient was [place] [facility] It was believed that the patient had unintentionally overdosed on codeine, lorazepam, alcohol and marijuana due to her impaired hepatic function. Daughter reported that the patient had an earlier ED visit due to jaundiced appearance. She was transferred to [facility], ERCP was done, patient had biliary drain placed. Dr. Dorantes had evaluated the patient during her recent admission to [facility] and had determined there were no neurological concerns with the patient. Patient was discharged to home. Last night, 02/24/19, the patient had taken 3 doses of her muscle relaxant. This morning, 02/25/19, the patient had difficulty standing on her feet as well as "wavy" vision. At around 1400 02/25/19, the patient was given her prescribed Ativan. Daughter states that she had left the house for an hour. When she returned, she states that the patient's eyes were dilated and the patient appeared "spaced out", which is an unusual presentation for the patient. In the room, the patient states that she feels "strange" and "out of it". Decreased appetite and abdominal pain are denied. On triage, pain is denied, nothing is noted to aggravate/alleviate Sx. Home medications and allergies are reviewed. - History Of Current Complaint Chief Complaint: EDGeneral Time Seen by Provider: 02/25/19 20:52 Hx Obtained From: Patient, Family/Inclusion Paraeducator - daughter Onset/Duration: Still Present Timing: Constant Severity Currently: None Aggravating Factor(s): nothing Alleviating Factor(s): nothing Associated Signs And Symptoms: Positive: Other - positive - AMS, visual changes , difficulty standing; negative - decreased appetite. Negative: Abdominal Pain - Allergies/Home Medications Allergies/Adverse Reactions: Allergies Allergy/AdvReac Type Severity Reaction Status Date / Time adhesive tape Allergy Hives Verified 02/27/19 14:08 Penicillins Allergy Anaphylatic Verified 02/27/19 14:08 Shock phenytoin [From Dilantin] Allergy Hives Verified 02/27/19 14:08 PMH/Surg Hx/FS Hx/Imm Hx Endocrine/Hematology History: Denies: Hx Anticoagulant Therapy, Hx Diabetes Cardiovascular History: Reports: Hx Hypertension Respiratory History: Reports: Hx Asthma - USES AN INHLAER, Hx Chronic Obstructive Pulmonary Disease (COPD), Other Respiratory Problems/Disorders - USES O2 2 L CONTINOUS GI History: Denies: Hx Gall Bladder Disease History: Denies: Hx Acute Renal Failure, Hx Chronic Renal Failure, Hx Renal Disease Sensory History: Reports: Hx Cataracts - CATARACT LEFT EY, Hx Contacts or Glasses, Hx Deafness - Pt cant verify which side is deaf Denies: Hx Hearing Aid Opthamlomology History: Reports: Hx Cataracts - CATARACT LEFT EY, Hx Contacts or Glasses Neurological History: Reports: Hx Migraine, Hx Seizures - BRAIN ANEURYSM 1989 Psychiatric History: Reports: Hx Anxiety, Hx Substance Abuse - Alcohol abuse - Cancer History Hx Chemotherapy: No Hx Radiation Therapy: No - Surgical History Surgery Procedure, Year, and [facility]: [facility], [facility], [facility], [facility] [place] Hx Anesthesia Reactions: No - Immunization History Date of Tetanus Vaccine: PT STATES UNSURE Date of Influenza Vaccine: PT STATES UNSURE Infectious Disease History: No Infectious Disease History: Denies: Traveled Outside the [place] in Last 30 Days - Family History Known Family History: Positive: Other - Breast CA in sister and aunt - Social History Alcohol Use: Occasionally Hx Substance Use: No Substance Use Type: Reports: Marijuana Hx Tobacco Use: Yes Smoking Status (MU): Current Every Day Smoker Review of Systems Eyes: Other - positive - visual changes Gastrointestinal: Other - negative - decreased appetite Negative: Abdominal Pain Neurological: Other - positive - AMS, difficulty standing All Other Systems Reviewed And Are Negative: Yes Physical Exam - Summary Physical Exam Summary: Appearance: Frail-appearing, elderly female lying in bed comfortably and in no acute distress Skin: Warm, dry, no obvious rash Eyes: sclera anicteric, no conjunctival pallor; there is nystagmus of the lateral gaze, particularly to the right ENT: mucous membranes moist, pharynx appears normal Neck: Supple, nontender Respiratory: Clear to auscultation, no signs of respiratory distress Cardiovascular: Normal S1, S2. No murmurs. Normal distal pulses in tibial and radial bilaterally. Abdomen: There is a biliary drain to the upper abdomen. Soft, nontender, normal active bowel sounds present Musculoskeletal: Mild edema of BLE. Normal, Strength/ROM Intact Neurological: A&Ox3, awake and alert, mentation is normal, speech is fluent and appropriate Psychiatric: affect is normal, does not appear anxious or depressed Triage Information Reviewed: Yes Vital Signs On Initial Exam: Initial Vitals Temp Pulse Resp BP Pulse Ox 99.0 F 75 15 143/87 100 02/25/19 17:59 02/25/19 17:59 02/25/19 17:59 02/25/19 17:59 02/25/19 17:59 Vital Signs Reviewed: Yes Procedures - Sedation Patient Received Moderate/Deep Sedation with Procedure: No Diagnostics - Vital Signs Vital Signs Temp Pulse Resp BP Pulse Ox 02/25/19 20:13 97.8 F 83 16 129/82 100 02/25/19 17:59 99.0 F 75 15 143/87 100 - Laboratory Result Diagrams: 02/25/19 21:26 02/25/19 21:26 Lab Statement: Any lab studies that have been ordered have been reviewed, and results considered in the medical decision making process. - EKG 2136 Cardiac Rate: NL - rate of 81 BPM EKG Rhythm: Sinus Rhythm Summary of EKG Findings: EKG showed NSR at 81 BPM, P waves, QRS complex, and T waves are within normal limits, T waves and intervals are normal, no ischemic changes. This is a normal EKG. This EKG was reviewed and interpreted by Dr. Gonzales. Complex Multi-Symp Course/Dx Course Of Treatment: Patient is a 63 y/o F presenting to [facility] with chief complaint of altered mental status. The patient had been evaluated in [facility] a few days ago for the same complaint. Patient was [place] [facility] It was believed that the patient had unintentionally overdosed on codeine, lorazepam, alcohol and marijuana due to her impaired hepatic function. Daughter reported that the patient had an earlier ED visit due to jaundiced appearance. She was transferred to [facility], ERCP was done, patient had biliary drain placed. Dr. Dorantes had evaluated the patient during her recent admission and had determined there were no neurological concerns with the patient. Patient was discharged to home. Last night, 02/24/19, the patient had taken 3 doses of her muscle relaxant. This morning, 02/25/19, the patient had difficulty standing on her feet as well as "wavy" vision. At around 1400 02/25/19, the patient was given her prescribed Ativan. Daughter states that she had left the house for an hour. When she returned, she states that the patient's eyes were dilated and the patient appeared "spaced out", which is an unusual presentation for the patient. In the room, the patient states that she feels "strange" and "out of it ". Decreased appetite and abdominal pain are denied. On physical exam, patient is noted to be a frail and elderly female in no acute distress. There is nystagmus of the lateral gaze, particularly to the left. There is a biliary drain to the upper abdomen. EKG showed NSR at 81 BPM, P waves, QRS complex, and T waves are within normal limits, T waves and intervals are normal, no ischemic changes. This is a normal EKG. Workup notable for leukocytosis and pyuria, UA is different from a few days ago so suspect recent decompensation is due to UTI. Will see how she does ambulating, start on keflex. - Diagnoses Provider Diagnoses: UTI (urinary tract infection) Discharge ED - Sign-Out/Discharge Documenting (check all that apply): Patient Departure - discharge - Discharge Plan Condition: Stable Disposition: HOME Prescriptions: Cephalexin CAP* [Keflex CAP*] 500 mg PO QID #28 cap Patient Education Materials: Urinary Tract Infection in Older Adults (ED) Referrals: Santy Martin MD [Primary Care Provider] - - Billing Disposition and Condition Condition: STABLE Disposition: Home - Attestation Statements Document Initiated by Catarnia: Yes Documenting Scribe: POLLY BAL Provider For Whom Catarina is Documenting (Include Credential): BRANDEN GONZALES MD Scribe Attestation: IPOLLY, scribed for BRANDEN GONZALES MD on 02/28/19 at 1831. Scribe Documentation Reviewed: Yes Provider Attestation: The documentation as recorded by the POLLY moore accurately reflects the service I personally performed and the decisions made by me, BRANDEN GONZALES MD Status of Scribe Document: Viewed
[2019-02-25 21:35] LABS: ABS Basophils 0.1 10^3/ul (0-0.2); ABS Eosinophils 0.2 10^3/ul (0-0.6); ABS Lymphocytes 3.4 10^3/ul (1.0-4.8); ABS Monocytes 0.9 10^3/ul (0-0.8); ABS Neutrophils 10.3 10^3/ul (1.5-7.7); Eosinophil % 1.1 %; Hematocrit 40 % (35-47); Lymphocyte % 23.1 %; Mean Corpuscular HGB Conc 33 g/dL (31-36); Mean Corpuscular Hemoglobin 33 pg (27-31); Mean Corpuscular Volume 99 fL (80-97); Mean Platelet Volume 7.1 fL (7.4-10.4); Platelet Count 303 10^3/uL (150-450); Red Blood Count 4.01 10^6 /uL (3.70-4.87); Red Cell Distribution Width 14 % (10-15); White Blood Count 14.9 10^3/uL (3.5-10.8)
[2019-02-25 21:51] LABS: ALT 16 U/L (7-52); AST 22 U/L (13-39); Albumin 2.9 g/dL (3.2-5.2); Albumin/Globulin Ratio 1.3 (1-3); Alkaline Phosphatase 189 U/L (34-104); Anion Gap 5 mmol/L (2-11); BUN/Creatinine Ratio 29.4 (8-20); Blood Urea Nitrogen 15 mg/dL (6-24); CO2 Carbon Dioxide 22 mmol/L (22-32); Calcium 8.2 mg/dL (8.6-10.3); Chloride 107 mmol/L (101-111); Creatine Kinase 35 U/L (10-223); EGFR African American 146.4 (>60); Globulin 2.3 g/dL (2-4); Glucose 135 mg/dL (70-100); Potassium 4.1 mmol/L (3.5-5.0); Sodium 134 mmol/L (135-145); Total Protein 5.2 g/dL (6.4-8.9)
[2019-02-25 21:55] LABS: Acetaminophen < 15 mcg/mL; Alcohol < 10 mg/dL (<10)
[2019-02-25 23:38] LABS: Urine Appearance Clear; Urine Bacteria 1+ (Absent); Urine Bilirubin Negative (Negative); Urine Blood Negative (Negative); Urine Color Amber; Urine Glucose Negative (Negative); Urine Ketones Negative (Negative); Urine Nitrite Positive (Negative); Urine Protein 1+(30 mg/dL) (Negative); Urine Red Blood Cell Absent (Absent); Urine Specific Gravity 1.024 (1.010-1.030); Urine Urobilinogen Negative (Negative); Urine White Blood Cell 1+(6-10/hpf) (Absent)
[2019-02-25 23:59] LABS: Urine Benzodiazepine Screen None Detected (None Detect); Urine Opiates Screen None Detected (None Detect)
[2019-02-26] MEDS ORDERED: Cephalexin CAP* 500 MG PO ONE (01:08)
[2019-02-26 02:19] VITALS: BP 91/57
== END 2019-02-26 02:17 | disposition home or self-care (01) ==
LOC: ED 17:55
DX: N39.0 Urinary tract infection, site not specified (principal); I10 Essential (primary) hypertension; J44.9 Chronic obstructive pulmonary disease, unspecified; F41.9 Anxiety disorder, unspecified; F17.200 Nicotine dependence, unspecified, uncomplicated; Z99.81 Dependence on supplemental oxygen; Z90.49 Acquired absence of other specified parts of digestive tract; Z98.84 Bariatric surgery status; Z79.899 Other long term (current) drug therapy; Z88.6 Allergy status to analgesic agent; Z88.0 Allergy status to penicillin; Z88.8 Allergy status to other drugs, medicaments and biological substances
CPT/HCPCS: 36415; 80053; 80307; 80320; 80329; 81003; 81015; 82140; 82550; 83605; 84484; 85025; 87077; 87086; 87186; 93005; 99282; A9270-GY; G0480

== ENCOUNTER 2019-02-26 03:35 | Emergency (ER) | payer MEDICARE, MEDICAID ==
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
[2019-02-26 11:22] VITALS: BP 115/70
--- NOTE | 2019-03-01 06:16 | ED ---
Imaging and Labs Follow Up Follow Up Type: Labs/Cultures Labs/Culture Result: Patient's final urine culture shows critical 100,000 Escherichia coli which is sensitive to ceftriaxone which is currently receiving as antimicrobial therapy. This treatment is adequate fluids trying to bacteria. Patient Communication/Plan: Patient is being treated as an inpatient. Nothing further at this time. Provider Diagnoses: Head injury, Fall
== END 2019-02-26 12:00 | disposition home or self-care (01) ==
LOC: ED 03:35
DX: S01.91XA Laceration without foreign body of unspecified part of head, initial encounter (principal); W01.198A Fall on same level from slipping, tripping and stumbling with subsequent striking against other object, initial encounter; Y92.009 Unspecified place in unspecified non-institutional (private) residence as the place of occurrence of the external cause; I10 Essential (primary) hypertension; J44.9 Chronic obstructive pulmonary disease, unspecified; Z99.81 Dependence on supplemental oxygen; F41.9 Anxiety disorder, unspecified; F17.200 Nicotine dependence, unspecified, uncomplicated; Z90.49 Acquired absence of other specified parts of digestive tract; Z98.84 Bariatric surgery status; Z88.0 Allergy status to penicillin; Z88.8 Allergy status to other drugs, medicaments and biological substances; Z91.048 Other nonmedicinal substance allergy status
CPT/HCPCS: 12002; 70450; 99283

== ENCOUNTER 2019-02-27 13:56 | Inpatient (IN) | payer MEDICAID, MEDICARE ==
[2019-02-27] MEDS ORDERED: NS 0.9% 1000 ML** 1,000 ML IV ONE (14:59)
--- NOTE | 2019-02-27 15:07 | ED ---
Complex/Multi-Sys Presentation - HPI Summary HPI Summary: This patient is a 63 year old F with history of A. fib on Coumadin, COPD, depression, Mao-en-Y, recent admission for ascending cholangitis status post biliary drain, presenting to [facility] accompanied by daughter and granddaughter with a chief complaint of frequent falls with last fall this morning 02/27/19 and last night going up the stairs. Patient has had several presentations for fall secondary to weakness/polypharmacy most notably 2 days ago. Daughter expresses concern of safety at home as she describes a recent fall when the pt got up to go to bathroom and lost her balance even while using the walker and fell. Daughter reports primary care doctor wishes for pt to be admitted [facility] for rehab. Patient denies fevers, abdominal pain. - History Of Current Complaint Chief Complaint: EDFall Time Seen by Provider: 02/27/19 14:28 Hx Obtained From: Patient, Family/Machine I Trimmer - daughter Onset/Duration: Still Present Timing: Constant Aggravating Factor(s): nothing Alleviating Factor(s): nothing - Allergies/Home Medications Allergies/Adverse Reactions: Allergies Allergy/AdvReac Type Severity Reaction Status Date / Time adhesive tape Allergy Hives Verified 02/27/19 14:08 Penicillins Allergy Anaphylatic Verified 02/27/19 14:08 Shock phenytoin [From Dilantin] Allergy Hives Verified 02/27/19 14:08 PMH/Surg Hx/FS Hx/Imm Hx Endocrine/Hematology History: Denies: Hx Anticoagulant Therapy, Hx Diabetes Cardiovascular History: Reports: Hx Hypertension Respiratory History: Reports: Hx Asthma - USES AN INHLAER, Hx Chronic Obstructive Pulmonary Disease (COPD), Other Respiratory Problems/Disorders - USES O2 2 L CONTINOUS GI History: Denies: Hx Gall Bladder Disease History: Denies: Hx Acute Renal Failure, Hx Chronic Renal Failure, Hx Renal Disease Sensory History: Reports: Hx Cataracts - CATARACT LEFT EY, Hx Contacts or Glasses, Hx Deafness - Pt cant verify which side is deaf Denies: Hx Hearing Aid Opthamlomology History: Reports: Hx Cataracts - CATARACT LEFT EY, Hx Contacts or Glasses Neurological History: Reports: Hx Migraine, Hx Seizures - BRAIN ANEURYSM 1989 Psychiatric History: Reports: Hx Anxiety, Hx Substance Abuse - Alcohol abuse - Cancer History Hx Chemotherapy: No Hx Radiation Therapy: No - Surgical History Surgery Procedure, Year, and Place: [facility], [facility], [facility], [facility] [place] Hx Anesthesia Reactions: No - Immunization History Date of Tetanus Vaccine: PT STATES UNSURE Date of Influenza Vaccine: PT STATES UNSURE Infectious Disease History: No Infectious Disease History: Denies: Traveled Outside the [place] in Last 30 Days - Family History Known Family History: Positive: Other - Breast CA in sister and aunt - Social History Alcohol Use: None Hx Substance Use: No Substance Use Type: Reports: Marijuana Hx Tobacco Use: Yes Smoking Status (MU): Light Every Day Tobacco Smoker Review of Systems Negative: Fever Neurological: Other - falls All Other Systems Reviewed And Are Negative: Yes Physical Exam - Summary Physical Exam Summary: Constitutional: elderly, chronically ill appearing, Alert. (-) Distressed Skin: Warm, Dry HENT: 3 vicente to her posterior head Eyes: Conjunctiva normal Neck: Musculoskeletal ROM normal neck. (-) JVD, (-) Stridor, (-) Nuchal rigidity Cardio: Rhythm regular, tachycardia, Heart sounds normal; Intact distal pulses; Radial pulses are 2+ and symmetric. (-) Murmur Pulmonary/Chest wall: Effort normal. (-) Respiratory distress, (-) Wheezes, (-) Rales Abd: biliary drain nontender, (-) Distension, (-) Guarding, (-) Rebound Musculoskeletal: (-) Edema Lymph: (-) Cervical adenopathy Neuro: Alert, Oriented x3 Psych: Mood and affect Normal Triage Information Reviewed: Yes Vital Signs On Initial Exam: Initial Vitals Temp Pulse Resp BP Pulse Ox 99.1 F 106 18 121/67 100 02/27/19 14:03 02/27/19 14:03 02/27/19 14:03 02/27/19 14:03 02/27/19 14:03 Vital Signs Reviewed: Yes Procedures - Sedation Patient Received Moderate/Deep Sedation with Procedure: No Diagnostics - Vital Signs Vital Signs Temp Pulse Resp BP Pulse Ox 02/27/19 14:37 101 107/65 100 02/27/19 14:28 101 100 02/27/19 14:03 99.1 F 106 18 121/67 100 - Laboratory Result Diagrams: 02/28/19 07:03 02/27/19 15:23 Lab Statement: Any lab studies that have been ordered have been reviewed, and results considered in the medical decision making process. - EKG 1512 Cardiac Rate: NL - 101 BPM Summary of EKG Findings: An EKG at 1512, 101 BPM sinus tachycardia, t-wave inversions in V 1 V2. No STEMI. No acute changes. Complex Multi-Symp Course/Dx Course Of Treatment: 63 year old F with history of A. fib on Coumadin, COPD, depression, Mao-en-Y, recent admission for ascending cholangitis status post biliary drain resents falls. Patient has had multiple presentations to the ED for this, concern for polypharmacy versus weakness. Patient has not struck her head since her last fall 2 days ago at which point she had negative head CT. Labs here unremarkable aside from elevated bili at 1.8. Vital signs notable for mild tachycardia patient was given fluids. Will discuss with hospitalist regarding admission for placement for rehabilitation given repeated falls. UA w 3+ LE, denies symptoms but has been fatigued. Hospitalist ordered keflex for UTI. - Diagnoses Provider Diagnoses: Fall - Physician Notifications Discussed Care Of Patient With: Darren Garrido Time Discussed With Above Provider: 16:34 Instructed by Provider To: Admit As Inpatient Discharge ED - Sign-Out/Discharge Documenting (check all that apply): Patient Departure - admit - Discharge Plan Condition: Stable Disposition: ADMITTED TO [facility] - Billing Disposition and Condition Condition: STABLE Disposition: Admitted to [facility] - Attestation Statements Document Initiated by Jeffibe: Yes Documenting Scribe: Mere Mcguire Provider For Whom Jeffibe is Documenting (Include Credential): Dr. Sam Benavides MD Scribe Attestation: Mere Majano scribed for Dr. Sam Benavides MD on 02/28/19 at 0722. Scribe Documentation Reviewed: Yes Provider Attestation: The documentation as recorded by the Mere moore accurately reflects the service I personally performed and the decisions made by me, Dr. Sam Benavides MD Status of Scribe Document: Viewed
[2019-02-27 15:30] LABS: ABS Eosinophils 0.1 10^3/ul (0-0.6); ABS Lymphocytes 2.1 10^3/ul (1.0-4.8); ABS Monocytes 0.6 10^3/ul (0-0.8); ABS Neutrophils 7.2 10^3/ul (1.5-7.7); Eosinophil % 0.6 %; Hematocrit 38 % (35-47); Hemoglobin 12.7 g/dL (12.0-16.0); Lymphocyte % 21.1 %; Mean Corpuscular HGB Conc 33 g/dL (31-36); Mean Corpuscular Hemoglobin 33 pg (27-31); Mean Corpuscular Volume 98 fL (80-97); Platelet Count 306 10^3/uL (150-450); Red Blood Count 3.89 10^6 /uL (3.70-4.87); Red Cell Distribution Width 13 % (10-15)
[2019-02-27 15:46] LABS: Albumin 2.8 g/dL (3.2-5.2); Albumin/Globulin Ratio 1.2 (1-3); BUN/Creatinine Ratio 26.3 (8-20); Calcium 8.1 mg/dL (8.6-10.3); EGFR African American 128.8 (>60); EGFR Non-African American 106.4 (>60); Globulin 2.4 g/dL (2-4); Total Bilirubin 1.8 mg/dL (0.2-1.0); Total Protein 5.2 g/dL (6.4-8.9)
[2019-02-27] MEDS ORDERED: Meclizine TAB* 12.5 MG PO PRN (18:23)
[2019-02-27] MEDS ORDERED: Albuterol HFA INHALER* 8 gm MDI INH PRN (18:23)
[2019-02-27 18:54] LABS: Magnesium 1.8 mg/dL (1.9-2.7)
[2019-02-27 18:56] LABS: INR 3.96 (0.82-1.09)
--- NOTE | 2019-02-27 21:24 | HP ---
HISTORY AND PHYSICAL: DATE OF ADMISSION: 02/27/19 ADMITTING PROVIDER: Darren Garrido MD. PRIMARY CARE PHYSICIAN: Dr. Martin. CHIEF COMPLAINT: Repeated falls. HISTORY OF PRESENT ILLNESS: Clover Anaya is a 63-year-old female with past medical history of atrial fibrillation (on Coumadin), seizure disorder, COPD, current smoker, depression, recent cholangitis with biliary drain, status post Mao-en-Y, status post cholecystectomy and remote brain aneurysm status post clipping(preventing MRI/MRCP). She has had multiple admissions and evaluations since the beginning of January 2019 when she had E. coli, septicemia in the setting of painless jaundice and has had 2 failed ERCPs given the difficulty of her anatomy with the Mao-en-Y. She had since followed up also with clay machine operator/oncologist, Dr. Beatriz Calixto of [place] and had planned to get a PET scan this upcoming 03/02/19. She was admitted recently for toxic metabolic encephalopathy suspected from a combination of marijuana, Ativan, Tylenol with codeine and alcohol use was discharged on 02/24/19. This is now her third presentation to the emergency room in the 3 days since. She had on the altered mental status after she took 30 mg of cyclobenzaprine, also her Ativan and at that time was diagnosed with UTI given Keflex after she had a white count of 14.9 and a UA consistent with infection. She was discharged early in the morning of 02/26/19 and fell while trying to climb the ramp of her house hitting the back of her head. She returned to the ED, had negative CT head. She returned yesterday and fell again while going up the stairs and then this morning she was walking with her walker when she fell backwards into the side and her granddaughter had to catch her. Later this morning she went to Dr. Martin's office, he discontinued her Ativan and Flexeril and recommended admission to hospital to eventually get to a rehabilitation facility for which she has now returned to the emergency room for further evaluation. She denies any fever. She has had chills for weeks. She reports that her weight has fluctuated dramatically from 180 down to 150 - she had been in uncontrolled atrial fibrillation, and started on Coumadin and torsemide down in [place]. The torsemide was stopped after she had RODNEY when she was discharged on 02/15/19. She attests to some pain in her right knee. She cannot further characterize what triggers it. They had experienced 2 weeks of rehabilitation at [facility] after her [facility] admissions and was able to get stronger enough to be independent mobility payne with the stairs at her home. She has been staying with her daughter in a double wide trailer with 4 steps to enter the house. In [facility] [place] room she is without leukocytosis, afebrile, is tachycardic to 107 , normotensive, satting well on room air, total bili is 1.8 consistent with prior readings and alk phos is 194. PAST MEDICAL HISTORY: COPD, seizure disorder, AFib on Coumadin, gastric bypass , recent cholangitis with E. coli septicemia, recent toxic metabolic encephalopathy thought secondary to medication in the setting of liver dysfunction and medication noncompliance and marijuana use, alcohol use, current smoker. PAST SURGICAL HISTORY: Mao-en-Y, cholecystectomy, brain aneurysm in with clip. MEDICATIONS: Include: 1. Warfarin 2 mg daily. 2. Topamax 100 mg p.o. q.a.m., 150 mg p.o. at bedtime. 3. Quetiapine 100 mg p.o. at bedtime. 4. Multivitamin with iron 1 tab each daily. 5. Singulair 10 mg p.o. daily. 6. Metoprolol tartrate 25 mg p.o. daily. 7. Meclizine 25-50 mg p.o. at bedtime p.r.n. 8. Loperamide 2 mg p.o. t.i.d. 9. Bevespi Aerosphere inhaler 2 puffs inhale b.i.d. 10. Duloxetine 120 mg p.o. daily. 11. Keflex 500 mg p.o. 4 times a day (recently prescribed on 02/25/19). 12. Ventolin 2 puffs inhaled q.4 hours p.r.n. 13. Acetaminophen with codeine 1 to 2 tabs p.o. b.i.d. ALLERGIES: PENICILLIN (anaphylactic shock), PHENYTOIN hives, ADHESIVE TAPE hives. FAMILY HISTORY: Both parents in accident, age 54 for mother and father at 58 respectively. SOCIAL HISTORY: The patient is a current smoker for more than 30 years, currently about a half pack per day; marijuana use. She used to drink 3 to 4 six packs in a week, but down since December 2018. Medical decision maker is her daughter, Britany Andersen, she desires to be a full code. REVIEW OF SYSTEMS: Complete 14-point review of system is negative except as per HPI. She attests to some bilateral peripheral edema but better than before. No shortness of breath or coughing, headaches, stomach pain, diarrhea or constipation. PHYSICAL EXAMINATION GENERAL APPEARANCE: In no acute distress. VITAL SIGNS: Temperature 99.1, pulse rate 106, respiratory rate 18, satting 100 % on room air, blood pressure 121/67. HEENT: Normocephalic, atraumatic. Pupils equally round and reactive to light. Extraocular motions intact. No scleral icterus. LUNGS: Clear to auscultation bilaterally with no wheezing, rales, or rhonchi. CARDIOVASCULAR: Regular, tachycardic. No murmurs, rubs, or gallops. ABDOMEN: Soft, nontender, nondistended. There is a biliary drain with green fluid. EXTREMITIES: Warm, well perfused. 1+ pitting edema bilaterally. No pain with bending the right knee. No warmth. NEUROLOGIC: Cranial nerves II through XII grossly intact. Independent Contractor strength intact. Moving all extremities. DIAGNOSTIC STUDIES/LAB DATA: White count 10.0, hemoglobin 12.7, hematocrit 38 , platelets 306,000. Sodium 137, potassium 4.0, chloride 107, BUN 15, creatinine 0.57, glucose 129, total bili 1.8. AST 22, ALT 12, alk phos 194, albumin 2.8. Imaging: None. She had a recent duplex Doppler on 02/23/19, which showed no evidence of DVT. ASSESSMENT AND PLAN: Clover Anaya is a 63-year-old female with a recent Escherichia coli septicemia, cholangitis, and 2 failed endoscopic retrograde cholangiopancreatographies given difficult anatomy with concern to rule out pancreatic cancer. She is now returning for the third ED visit in the last 3 days after multiple admissions over the last 6 weeks with repeated falls and the desire to get into a rehabilitation facility to gain back her strength. Most of her symptoms can likely be attributed to 1) Escherichia coli urinary tract infection, for which we will continue Keflex along with 2) medication noncompliance and high risk medications, especially in the setting of liver dysfunction that have now been ceased. She was notably taking 30 mg of cyclobenzaprine each night chronically and that has now been stopped. Ativan has been held, will have to monitor for withdrawal symptoms. Hopefully, given her repeated recent hospitalizations, she will be able to qualify for an acute rehab facility as soon as possible as it would be beneficial for her to be able to get the PET scan that is already scheduled for 03/02/19, but I did inform the family that given timing, this may need to be delayed. For seizure disorder, continue Topamax. For atrial fibrillation, continue her metoprolol, put her on telemetry, add magnesium level. I will recheck her INR to help titrate her Coumadin dose which has been recently decreased from 2-1/2 to 2 mg daily. She is to continue her heart healthy diet, adding physical therapy. For depression, continue duloxetine. She is a full code. Medical surrogate is her daughter, Britany Andersen. [id number]/[facility] #: [id number] MTDD
[2019-02-27] MEDS: Loperamide CAP* 2 MG PO SCH (22:21)
[2019-02-27] MEDS: Cephalexin CAP* 500 MG PO SCH (22:21)
[2019-02-27] MEDS: QUEtiapine TAB* 100 MG PO SCH (22:22)
[2019-02-27] MEDS: Topiramate TAB(*) 100 MG PO SCH (22:23)
[2019-02-28 06:51] LABS: Urine Appearance Cloudy; Urine Bacteria 1+ (Absent); Urine Bilirubin Negative (Negative); Urine Blood Negative (Negative); Urine Calcium Carbonate Cryst Present (Absent); Urine Color Amber; Urine Glucose Negative (Negative); Urine Granular Casts Present (Absent); Urine Ketones Negative (Negative); Urine Nitrite Negative (Negative); Urine Protein Negative (Negative); Urine Red Blood Cell 3+(>10/hpf) (Absent); Urine Specific Gravity 1.017 (1.010-1.030); Urine Squamous Epithelial Cell Present (Absent); Urine Urobilinogen Negative (Negative); Urine White Blood Cell 2+(11-20/hpf) (Absent)
[2019-02-28 07:13] LABS: ABS Eosinophils 0.3 10^3/ul (0-0.6); ABS Lymphocytes 3.4 10^3/ul (1.0-4.8); ABS Monocytes 0.6 10^3/ul (0-0.8); ABS Neutrophils 3.8 10^3/ul (1.5-7.7); Hematocrit 35 % (35-47); Hemoglobin 11.3 g/dL (12.0-16.0); Lymphocyte % 42.3 %; Mean Corpuscular HGB Conc 33 g/dL (31-36); Mean Corpuscular Hemoglobin 33 pg (27-31); Mean Corpuscular Volume 100 fL (80-97); Mean Platelet Volume 7.1 fL (7.4-10.4); Nucleated Red Blood Cells % 0.1; Platelet Count 241 10^3/uL (150-450); Red Blood Count 3.44 10^6 /uL (3.70-4.87); Red Cell Distribution Width 13 % (10-15); White Blood Count 8.1 10^3/uL (3.5-10.8)
[2019-02-28 07:18] LABS: INR 3.67 (0.82-1.09)
[2019-02-28 07:27] LABS: ALT 16 U/L (7-52); Albumin 2.5 g/dL (3.2-5.2); Albumin/Globulin Ratio 1.3 (1-3); Alkaline Phosphatase 171 U/L (34-104); BUN/Creatinine Ratio 23.1 (8-20); Blood Urea Nitrogen 12 mg/dL (6-24); Calcium 7.7 mg/dL (8.6-10.3); Chloride 109 mmol/L (101-111); EGFR African American 143.2 (>60); EGFR Non-African American 118.3 (>60); Glucose 65 mg/dL (70-100); Sodium 134 mmol/L (135-145); Total Protein 4.5 g/dL (6.4-8.9)
[2019-02-28] MEDS ORDERED: Magnesium Sulfate 2 GM IV* 2 GM/50 ML BAG IVPB ONE (08:00)
[2019-02-28] MEDS: Cephalexin CAP* 500 MG PO SCH ×2 (08:07→13:05)
[2019-02-28] MEDS: Montelukast Sodium TAB* 10 MG PO SCH (08:08)
[2019-02-28] MEDS: Metoprolol Succinate XL TAB* 25 MG PO SCH (08:08)
[2019-02-28] MEDS: Loperamide CAP* 2 MG PO SCH ×3 (08:08→20:51)
[2019-02-28] MEDS: DULoxetine DR CAP* 60 MG CAP.DR PO SCH (08:08)
[2019-02-28 08:14] LABS: Anion Gap 4 mmol/L (2-11); CO2 Carbon Dioxide 21 mmol/L (22-32)
[2019-02-28] MEDS: Tiotropium Brom/Olodaterol MDI INH SCH (08:14)
[2019-02-28 08:16] LABS: Potassium Redraw 4.1 mmol/L (3.5-5.0)
[2019-02-28] MEDS: Topiramate TAB(*) 100 MG PO SCH ×2 (08:19→20:52)
[2019-02-28 09:31] LABS: Indirect Bilirubin 0.9 mg/dL (0.3-1.0); Total Bilirubin 1.5 mg/dL (0.2-1.0)
--- NOTE | 2019-02-28 13:33 | PN ---
Subjective Date of Service: 02/28/19 Interval History: Ms. Anaya is feeling well today. She offers no complaints, but thinks that her biliary drain is not draining. She reports that this needs to be flushed daily and she is the one who typically does this. She denies any focal weakness, feels overall weak. Denies CP or SOB. No concerns from nursing. Family History: Unchanged from Admission Social History: Unchanged from Admission Past Medical History: Unchanged from Admission Objective Active Medications: Albuterol (Ventolin Hfa Inhaler*) 2 puff INH Q4HR PRN SOB/WHEEZING Cephalexin HCl (Keflex Cap*) 500 mg PO QID EDUARDO Duloxetine HCl (Cymbalta Cap*) 120 mg PO DAILY EDUARDO Loperamide HCl (Imodium Cap*) 2 mg PO TID EDUARDO Meclizine HCl (Antivert Tab*) 25 mg PO BEDTIME PRN VERTIGO Metoprolol Succinate (Toprol Xl Tab*) 25 mg PO DAILY EDUARDO Montelukast Sodium (Singulair Tab*) 10 mg PO DAILY EDUARDO Quetiapine Fumarate (Seroquel Tab*) 100 mg PO BEDTIME EDUARDO Tiotropium [place]/Olodaterol (Stiolto Respimat Inh [place] (60 Puff)) 2 puff INH DAILY EDUARDO Topiramate (Topamax(*)) 100 mg PO QAM EDUARDO Topiramate (Topamax(*)) 150 mg PO BEDTIME EDUARDO Vital Signs - 8 hr 02/28/19 02/28/19 02/28/19 06:44 08:00 08:08 Temperature 98 F Pulse Rate 92 Respiratory 20 18 18 Rate Blood Pressure 121/69 (mmHg) O2 Sat by Pulse 100 Oximetry 02/28/19 02/28/19 02/28/19 08:17 09:38 11:15 Temperature Pulse Rate 91 85 Respiratory 16 18 Rate Blood Pressure 111/52 (mmHg) O2 Sat by Pulse 97 100 Oximetry Oxygen Devices in Use Now: None Appearance: Middle-aged female sitting in bed in NAD Eyes: No Scleral Icterus Ears/Nose/Mouth/Throat: Mucous Membranes Moist Neck: NL Appearance and Movements; NL JVP, Trachea Midline Respiratory: Symmetrical Chest Expansion and Respiratory Effort, Clear to Auscultation Cardiovascular: NL Sounds; No Murmurs; No JVD Abdominal: NL Sounds; No Tenderness; No Distention Skin: - - Pigtail drain to LUQ Neurological: Alert and Oriented x 3 Lines/Tubes/Other Access: Clean, Dry and Intact Peripheral IV Nutrition: Taking PO's Result Diagrams: 02/28/19 07:03 02/28/19 07:03 Assess/Plan/Problems-Billing Assessment: Ms. Anaya is a 63 yo F with PMH of COPD, seizures, afib on AC, substance abuse, recent cholangitis concerning for malignancy s/p pigtail drain placement; recently hospitalized 02/22/19 - 02/24/19 for encephalopathy secondary to medication overuse; who presented to the ED with c/o frequent falls. - Patient Problems (1) Frequent falls Code(s): R29.6 - REPEATED FALLS Comment: - Admits to falling at least daily since d/c on 02/24/19 - Not concerning for syncope as patient does admit to feeling generally weak and she has memory of all falls - Fall on 02/26/19 resulting in head laceration, vicente in place - PT/OT evals, but suspect she will need GENOVEVA - Hold sedating medications: Flexeril, lorazepam (2) UTI (urinary tract infection) Comment: - Urine culture from 02/25/19 growing >100k colonies MDR E. coli - Previously placed on cephalexin outpatient, though sensitivities reveal resistancy - Start ceftriaxone and d/c cephalexin (3) Atrial fibrillation Code(s): I48.91 - UNSPECIFIED ATRIAL FIBRILLATION Comment: - Rate controlled - INR supratherapeutic; hold warfarin - Continue metoprolol (4) History of cholangitis Code(s): Z87.19 - PERSONAL HISTORY OF OTHER DISEASES OF THE DIGESTIVE SYSTEM Comment: - Recently treated for cholangitis and septicemia with concern for malignancy, s /p percutaneous drain placement - Follows with [facility] - Pigtail drain in place draining biliary fluid; flush once daily per patient's home regimen (5) Seizure disorder Code(s): G40.909 - EPILEPSY, UNSP, NOT INTRACTABLE, WITHOUT STATUS EPILEPTICUS Comment: - Continue Topamax (6) COPD (chronic obstructive pulmonary disease) Code(s): J44.9 - CHRONIC OBSTRUCTIVE PULMONARY DISEASE, UNSPECIFIED Comment: - Continue Nolan Ellison (7) Depression Code(s): F32.9 - MAJOR DEPRESSIVE DISORDER, SINGLE EPISODE, UNSPECIFIED Comment: - Continue duloxetine (8) DVT prophylaxis Code(s): Z29.9 - ENCOUNTER FOR PROPHYLACTIC MEASURES, UNSPECIFIED Comment: - Supratherapeutic INR (9) Full code status Code(s): Z78.9 - OTHER SPECIFIED HEALTH STATUS Comment: Status and Disposition: Observation. Anticipate d/c to [facility] when bed available. Attending: Lucian William
[2019-02-28] MEDS: cefTRIAXone(*) 1 GM in NS 0.9% 50 ML* 50 ML IVPB SCH (15:42)
[2019-02-28] MEDS: QUEtiapine TAB* 100 MG PO SCH (20:51)
[2019-03-01 05:53] LABS: INR 1.85 (0.82-1.09)
[2019-03-01] MEDS: Tiotropium Brom/Olodaterol MDI INH SCH (07:36)
[2019-03-01] MEDS: Topiramate TAB(*) 100 MG PO SCH ×2 (08:44→22:01)
[2019-03-01] MEDS: DULoxetine DR CAP* 60 MG CAP.DR PO SCH (08:44)
[2019-03-01] MEDS: Loperamide CAP* 2 MG PO SCH ×3 (08:44→21:59)
[2019-03-01] MEDS: Montelukast Sodium TAB* 10 MG PO SCH (08:44)
[2019-03-01] MEDS: Warfarin TAB(*) 2 MG PO SCH (08:44)
[2019-03-01] MEDS: Metoprolol Succinate XL TAB* 25 MG PO SCH (08:44)
--- NOTE | 2019-03-01 12:11 | PN ---
Subjective Date of Service: 03/01/19 Interval History: Ms. Anaya is feeling well today. She offers no complaints. Does not feel weak overall, but is very weak and unsteady with stairs. Drain has good output and flushing well. Denies dizziness, WATERS, N/V. Good appetite. No concerns from nursing. Family History: Unchanged from Admission Social History: Unchanged from Admission Past Medical History: Unchanged from Admission Objective Active Medications: Albuterol (Ventolin Hfa Inhaler*) 2 puff INH Q4HR PRN SOB/WHEEZING Duloxetine HCl (Cymbalta Cap*) 120 mg PO DAILY [facility] Ceftriaxone Sodium 1 gm/ (Sodium Chloride) 50 mls @ 100 mls/hr IVPB Q24H EDUARDO Loperamide HCl (Imodium Cap*) 2 mg PO TID EDUARDO Meclizine HCl (Antivert Tab*) 25 mg PO BEDTIME PRN VERTIGO Metoprolol Succinate (Toprol Xl Tab*) 25 mg PO DAILY EDUARDO Montelukast Sodium (Singulair Tab*) 10 mg PO DAILY EDUARDO Quetiapine Fumarate (Seroquel Tab*) 100 mg PO BEDTIME EDUARDO Tiotropium [place]/Olodaterol (Stiolto Respimat Inh [place] (60 Puff)) 2 puff INH DAILY EDUARDO Topiramate (Topamax(*)) 100 mg PO QAM EDUARDO Topiramate (Topamax(*)) 150 mg PO BEDTIME EDUAROD Warfarin Sodium (Coumadin Tab(*)) 2 mg PO DAILY EDUARDO; Protocol Vital Signs - 8 hr 03/01/19 03/01/19 03/01/19 07:39 07:50 08:44 Temperature 98.1 F Pulse Rate 102 102 Respiratory 18 16 16 Rate Blood Pressure 129/75 (mmHg) O2 Sat by Pulse 98 100 Oximetry 03/01/19 03/01/19 03/01/19 10:45 11:05 11:25 Temperature 98.2 F Pulse Rate 88 Respiratory 17 16 Rate Blood Pressure 91/45 122/78 (mmHg) O2 Sat by Pulse 100 Oximetry Oxygen Devices in Use Now: None Appearance: Middle-aged female sitting in bed in NAD Ears/Nose/Mouth/Throat: Mucous Membranes Moist Neck: NL Appearance and Movements; NL JVP, Trachea Midline Respiratory: Symmetrical Chest Expansion and Respiratory Effort, Clear to Auscultation Cardiovascular: NL Sounds; No Murmurs; No JVD Abdominal: NL Sounds; No Tenderness; No Distention, - - Drain in LUQ with good output Extremities: No Edema Neurological: Alert and Oriented x 3 Lines/Tubes/Other Access: Clean, Dry and Intact Peripheral IV Nutrition: Taking PO's Result Diagrams: 02/28/19 07:03 02/28/19 07:03 Assess/Plan/Problems-Billing Assessment: Ms. Anaya is a 63 yo F with PMH of COPD, seizures, afib on AC, substance abuse, recent cholangitis concerning for malignancy s/p pigtail drain placement; recently hospitalized 02/22/19 - 02/24/19 for encephalopathy secondary to medication overuse; who presented to the ED with c/o frequent falls. - Patient Problems (1) UTI (urinary tract infection) Comment: - Urine culture from 02/25/19 growing >100k colonies MDR E. coli; recently (a month ago) had resistant E. coli UTI which was treated, now recurring and more resistant - Previously placed on cephalexin outpatient though sensitivities reveal resistancy - Due to recurrence and resistancy, she will need at least 3 days IV abx before transitioning to PO - Continue ceftriaxone (day 2) (2) Frequent falls Code(s): R29.6 - REPEATED FALLS Comment: - Admits to falling at least daily since d/c on 02/24/19 - Not concerning for syncope as patient does admit to feeling generally weak and she has memory of all falls - Fall on 02/26/19 resulting in head laceration, vicente in place - PT/OT evals, but suspect she will need GENOVEVA - Hold sedating medications: Flexeril, lorazepam (3) Atrial fibrillation Code(s): I48.91 - UNSPECIFIED ATRIAL FIBRILLATION Comment: - Rate controlled - Continue metoprolol; resume Coumadin (4) History of cholangitis Code(s): Z87.19 - PERSONAL HISTORY OF OTHER DISEASES OF THE DIGESTIVE SYSTEM Comment: - Recently treated for cholangitis and septicemia with concern for malignancy, s /p percutaneous drain placement - Follows with [facility] - Pigtail drain in place draining biliary fluid; flush once daily per patient's home regimen (5) Seizure disorder Code(s): G40.909 - EPILEPSY, UNSP, NOT INTRACTABLE, WITHOUT STATUS EPILEPTICUS Comment: - Continue Topamax (6) COPD (chronic obstructive pulmonary disease) Code(s): J44.9 - CHRONIC OBSTRUCTIVE PULMONARY DISEASE, UNSPECIFIED Comment: - Continue StiolMina chouulair (7) Depression Code(s): F32.9 - MAJOR DEPRESSIVE DISORDER, SINGLE EPISODE, UNSPECIFIED Comment: - Continue duloxetine (8) DVT prophylaxis Code(s): Z29.9 - ENCOUNTER FOR PROPHYLACTIC MEASURES, UNSPECIFIED Comment: - Coumadin (9) Full code status Code(s): Z78.9 - OTHER SPECIFIED HEALTH STATUS Comment: Status and Disposition: Observation. Anticipate d/c to [facility] when medically stable and bed available. Attending: Shelia Florian
[2019-03-01] MEDS: cefTRIAXone(*) 1 GM in NS 0.9% 50 ML* 50 ML IVPB SCH (15:39)
[2019-03-01] MEDS: QUEtiapine TAB* 100 MG PO SCH (21:59)
[2019-03-02] MEDS: Tiotropium Brom/Olodaterol MDI INH SCH (07:59)
[2019-03-02] MEDS: Montelukast Sodium TAB* 10 MG PO SCH (08:23)
[2019-03-02] MEDS: Loperamide CAP* 2 MG PO SCH ×3 (08:23→21:28)
[2019-03-02] MEDS: Warfarin TAB(*) 2 MG PO SCH (08:23)
[2019-03-02] MEDS: Metoprolol Succinate XL TAB* 25 MG PO SCH (08:24)
[2019-03-02] MEDS: Topiramate TAB(*) 100 MG PO SCH ×2 (08:24→21:29)
[2019-03-02] MEDS: DULoxetine DR CAP* 60 MG CAP.DR PO SCH (08:26)
[2019-03-02 09:17] LABS: INR 1.45 (0.82-1.09)
[2019-03-02] MEDS: Enoxaparin(*) 80 MG/0.8 ML SYR SUBCUT SCH ×2 (11:57→21:31)
--- NOTE | 2019-03-02 14:45 | PN ---
Subjective Date of Service: 03/02/19 Interval History: Patient with no complaints today. Tells me she didn't want to go to [place] because she used to work there and "doesn't want to see how far downhill it's gone." Patient denies abd pain, nausea, vomiting, fever/chills, chest pain, difficulty breathing. Family History: Unchanged from Admission Social History: Unchanged from Admission Past Medical History: Unchanged from Admission Objective Active Medications: Albuterol (Ventolin Hfa Inhaler*) 2 puff INH Q4HR PRN PRN Reason: SOB/WHEEZING Duloxetine HCl (Cymbalta Cap*) 120 mg PO DAILY [facility] Last Admin: 03/02/19 08:26 Dose: 120 mg Enoxaparin Sodium (Lovenox(*)) 70 mg SUBCUT Q12H [facility] Last Admin: 03/02/19 11:57 Dose: 70 mg Loperamide HCl (Imodium Cap*) 2 mg PO TID [facility] Last Admin: 03/02/19 08:23 Dose: 2 mg Meclizine HCl (Antivert Tab*) 25 mg PO BEDTIME PRN PRN Reason: VERTIGO Metoprolol Succinate (Toprol Xl Tab*) 25 mg PO DAILY [facility] Last Admin: 03/02/19 08:24 Dose: 25 mg Montelukast Sodium (Singulair Tab*) 10 mg PO DAILY [facility] Last Admin: 03/02/19 08:23 Dose: 10 mg Quetiapine Fumarate (Seroquel Tab*) 100 mg PO BEDTIME [facility] Last Admin: 03/01/19 21:59 Dose: 100 mg Tiotropium [place]/Olodaterol (Stiolto Respimat Inh [place] (60 Puff)) 2 puff INH DAILY [facility] Last Admin: 03/02/19 07:59 Dose: 2 puff Topiramate (Topamax(*)) 100 mg PO QAM [facility] Last Admin: 03/02/19 08:24 Dose: 100 mg Topiramate (Topamax(*)) 150 mg PO BEDTIME [facility] Last Admin: 03/01/19 22:01 Dose: 150 mg Warfarin Sodium (Coumadin Tab(*)) 2 mg PO DAILY [facility]; Protocol Last Admin: 03/02/19 08:23 Dose: 2 mg Vital Signs - 8 hr 03/02/19 03/02/19 03/02/19 07:15 08:00 08:23 Temperature 98.2 F Pulse Rate 104 108 Respiratory 20 20 18 Rate Blood Pressure 121/57 (mmHg) O2 Sat by Pulse 100 98 Oximetry 03/02/19 03/02/19 11:15 11:38 Temperature 97.9 F Pulse Rate 85 Respiratory 18 18 Rate Blood Pressure 116/62 (mmHg) O2 Sat by Pulse 100 Oximetry Oxygen Devices in Use Now: None Appearance: Elderly white female who appears older than stated age, laying in hospital bed, appearing comfortable and in NAD Eyes: No Scleral Icterus, - - PERRL Ears/Nose/Mouth/Throat: Mucous Membranes Moist Neck: Trachea Midline Respiratory: Symmetrical Chest Expansion and Respiratory Effort, Clear to Auscultation Cardiovascular: NL Sounds; No Murmurs; No JVD, RRR Abdominal: - - drain in place with green output; abdomen overall soft, nontender , nondistended; RLQ sensation of 3 cm diameter firmness Extremities: No Clubbing, Cyanosis, - - trace edema to right LE to knee Skin: No Rash or Ulcers Neurological: Alert and Oriented x 3, NL Muscle Strength and Tone Result Diagrams: 02/28/19 07:03 02/28/19 07:03 Microbiology and Other Data: Microbiology 02/28/19 06:30 Urine Culture - Final Urine Assess/Plan/Problems-Billing Assessment: Ms. Anaya is a 63 yo F with PMH of COPD, seizures, afib on AC, substance abuse, recent cholangitis concerning for malignancy s/p pigtail drain placement; recently hospitalized 02/22/19 - 02/24/19 for encephalopathy secondary to medication overuse; who presented to the ED with c/o frequent falls. - Patient Problems (1) UTI (urinary tract infection) Current Visit: Yes Status: Acute Comment: - Urine culture collected outpatient 02/25/19 growing >100k colonies MDR E. coli - Previously placed on cephalexin outpatient though sensitivities reveal resistance - today is day 3 of IV ceftriaxone - urine culture with contamination during this hospitalization, will repeat though will likely be negative given ceftriaxone - afebrile and without leukocytosis (2) Frequent falls Current Visit: Yes Status: Acute Code(s): R29.6 - REPEATED FALLS SNOMED Code(s): 471880581 Comment: - Admits to falling at least daily since d/c on 02/24/19 - Not concerning for syncope as patient does admit to feeling generally weak and she has memory of all falls - Fall on 02/26/19 resulting in head laceration, vicente in place - PT/OT evals rec GENOVEVA - Holding sedating medications: Flexeril, lorazepam (3) Atrial fibrillation Current Visit: No Status: Acute Code(s): I48.91 - UNSPECIFIED ATRIAL FIBRILLATION SNOMED Code(s): 33699206 Comment: - Rate controlled - Continue metoprolol; resume Coumadin - INR subtherapeutic today, started lovenox bridge (4) COPD (chronic obstructive pulmonary disease) Current Visit: No Status: Acute Code(s): J44.9 - CHRONIC OBSTRUCTIVE PULMONARY DISEASE, UNSPECIFIED SNOMED Code(s): 52628889 Comment: - Continue Stiolto, Singulair (5) Depression Current Visit: No Status: Acute Code(s): F32.9 - MAJOR DEPRESSIVE DISORDER, SINGLE EPISODE, UNSPECIFIED SNOMED Code(s): 83241492 Comment: - Continue duloxetine (6) History of cholangitis Current Visit: No Status: Acute Code(s): Z87.19 - PERSONAL HISTORY OF OTHER DISEASES OF THE DIGESTIVE SYSTEM SNOMED Code(s): 196483453 Comment: - Recently treated for cholangitis and septicemia with concern for malignancy, s /p percutaneous drain placement - Follows with [facility] - Pigtail drain in place draining biliary fluid; flush once daily per patient's home regimen (7) Seizure disorder Current Visit: No Status: Acute Code(s): G40.909 - EPILEPSY, UNSP, NOT INTRACTABLE, WITHOUT STATUS EPILEPTICUS SNOMED Code(s): 596435236 Comment: - Continue Topamax (8) Leg edema, right Current Visit: Yes Status: Acute Code(s): R60.0 - LOCALIZED EDEMA SNOMED Code(s): 220209232 Comment: -given possible malignancy, ordered doppler -right LE doppler negative for DVT (9) DVT prophylaxis Current Visit: No Status: Acute Code(s): Z29.9 - ENCOUNTER FOR PROPHYLACTIC MEASURES, UNSPECIFIED SNOMED Code(s): 291959317 Comment: - Coumadin and lovenox bridge (10) Full code status Current Visit: No Status: Acute Code(s): Z78.9 - OTHER SPECIFIED HEALTH STATUS SNOMED Code(s): 203733428 Comment: Status and Disposition: d/c to [facility] tomorrow
[2019-03-02] MEDS ORDERED: cefTRIAXone(*) 1 GM in NS 0.9% 50 ML* 50 ML IVPB SCH (20:00)
[2019-03-02] MEDS: QUEtiapine TAB* 100 MG PO SCH (21:28)
--- NOTE | 2019-03-02 23:01 | DS ---
CC: Dr. Martin.* DISCHARGE SUMMARY: DATE OF ADMISSION: 02/27/19 ANTICIPATED DATE OF DISCHARGE: 03/03/19 PROVIDER: BANDAR Yeboah PRIMARY CARE PROVIDER: Dr. Martin. ATTENDING PROVIDER: Berna Hua MD * (DICTATED BY BANDAR YEBOAH) PRIMARY DIAGNOSES: 1. Urinary tract infection with resistance to first generation cephalosporins. 2. Frequent falls, likely mechanical, possibly polypharmacy as a contributing factor. SECONDARY DIAGNOSES: 1. Atrial fibrillation, on Coumadin. 2. Seizure disorder. 3. Chronic obstructive pulmonary disease. 4. Recent cholangitis with Escherichia coli septicemia. 5. Recent toxic metabolic encephalopathy in a setting of liver dysfunction and medication compliance. 6. Alcohol use. 7. Tobacco use. 8. Biliary drain in place. 9. Status post gastric bypass. STUDIES WHILE IN THE HOSPITAL: Venous Doppler study of the right lower extremity on 03/02/19, no evidence of deep vein thrombosis identified. PERTINENT LAB DATA: INR on 03/02/19, 1.45. HISTORY OF PRESENT ILLNESS/HOSPITAL COURSE: Clover Anaya is a 63-year-old white female with past medical history significant for biliary drain in place, was followed by Heme/Onc at [place], COPD, tobacco use, AFib on Coumadin, who presents to the emergency department after the repeated falls. She suffered almost daily falls since her discharge from [facility] [place] [place] on 02/24/19. For further details, please see admitting history and physical written by Dr. Darren Garrido on 02/27/19. Given the patient's frequent falls, her home Flexeril and lorazepam were held, given that possibly polypharmacy was contributing to frequent falls. Additionally, the patient did admit to feeling generalized weakness. She was evaluated by physical therapy, who determined that the patient would benefit from subacute rehab and the patient was agreeable. Additionally during her hospital stay, her urine culture that was collected at outpatient did demonstrate resistance to first generation cephalosporins. She was on cephalexin originally and then therefore changed to ceftriaxone. She was afebrile without leukocytosis during her hospital stay. A repeat urine culture was collected at admission and urine culture was demonstrating a pattern of contamination and an additional urine culture was collected on 03/02/19. Initially during the patient's hospital stay, she had supratherapeutic INR to 3.96 and ultimately to 1.45 despite restarting her Coumadin. Therefore, Lovenox bridge was started. It would potentially have been a benefit to change the patient to a different oral anticoagulation; however, given her current liver dysfunction, Xarelto and Eliquis are not advised. Pradaxa could be considered, but this is nonformularly at this facility. During the patient's hospital stay, her home flushes for her biliary drain were continued and she had good output. DISCHARGE PLAN: Diet: Regular unrestricted diet. Activity: The patient may return to normal activity as tolerated. The patient is going to [facility] for subacute rehab where she will participate in daily therapy. It would be of benefit for her INR to be checked and her urine culture collected on 03/02/19 to be followed up. She should continue her oral antibiotics to completion. Her vicente should be removed on 03/05/19. She should follow up with Dr. Martin in 1 week after discharge from subacute rehab. At that time, it could be discussed whether perhaps Pradaxa would be a possible choice for the patient for oral anticoagulation, given her more recently somewhat labile INRs. The patient should return to the emergency department for fever, chills, abdominal pain, flank pain, low back pain, difficulty breathing, chest pain, dysuria, hematuria, other concerning symptoms. DISCHARGE MEDICATIONS: 1. Cefdinir 300 mg p.o. b.i.d. x3 doses. 2. Albuterol 2 puffs inhale q.4 hours p.r.n. shortness of breath and wheezing. 3. Cymbalta 120 mg p.o. daily. 4. Bevespi Aerosphere inhaler 2 puffs inhaled b.i.d. 5. Loperamide 2 mg p.o. t.i.d. 6. Meclizine 25 to 50 mg p.o. bedtime p.r.n. vertigo. 7. Metoprolol succinate 25 mg p.o. daily. 8. Singulair 10 mg p.o. daily. 9. Multivitamin with iron 1 tab p.o. daily. 10. Seroquel 100 mg p.o. bedtime. 11. Topamax 100 mg p.o. q.a.m., 150 mg p.o. q.p.m. 12. Coumadin 2 mg p.o. daily. CONDITION ON DISCHARGE: Stable. DISPOSITION: [facility] for subacute rehab. TIME SPENT: Approximately 30 minutes was spent on this discharge. BANDAR YEBOAH [id number]/[facility] #: [id number] MIGUEL
[2019-03-03] MEDS: Warfarin TAB(*) 2 MG PO SCH (08:53)
[2019-03-03] MEDS: Montelukast Sodium TAB* 10 MG PO SCH (08:53)
[2019-03-03] MEDS: DULoxetine DR CAP* 60 MG CAP.DR PO SCH (08:53)
[2019-03-03] MEDS: Loperamide CAP* 2 MG PO SCH ×2 (08:54→15:05)
[2019-03-03] MEDS: Topiramate TAB(*) 100 MG PO SCH (08:55)
[2019-03-03] MEDS: Metoprolol Succinate XL TAB* 25 MG PO SCH (08:55)
[2019-03-03] MEDS: Tiotropium Brom/Olodaterol MDI INH SCH (08:58)
--- NOTE | 2019-03-03 10:52 | DS ---
AMENDED REPORT NOW INCLUDES DESIGNATED COSIGNER - ESIGNED BEFORE ADJUSTMENTS DISCHARGE SUMMARY: ADDENDUM: This is an addendum to a discharge from BANDAR Yebo[facility], on 03/02. MY ATTENDING WHILE IN HOSPITAL: Dr. Marcela Sampson.* (DICTATED BY BANDAR GUERRIER) Due to the patient's persistently subtherapeutic INR at 1.45 on 03/02/19, the patient will continue her Lovenox bridge until her INR is therapeutic. The patient will be continued on 1 mg/kg of Lovenox twice daily until her repeat INR , which has been requested to be scheduled for 03/05/19. If the patient has persistently low INRs, the patient's bridge should be continued until her INR is therapeutic and her Coumadin level should be increased, though she will be continued on 2 mg daily at this time. NEW MEDICATIONS: Lovenox 70 mg subcutaneous twice daily. BANDAR GUERRIER [id number]/[facility] #: [id number] MTDD
[2019-03-03] MEDS: Enoxaparin(*) 80 MG/0.8 ML SYR SUBCUT SCH (11:37)
[2019-03-03 12:23] LABS: INR 1.4 (0.82-1.09)
[2019-03-03 14:13] VITALS: BP 123/76
== END 2019-03-03 15:00 | DRG 690 ==
LOC: ED 13:56 → MED 18:13 → OBSVTOIN 02-28 13:18
PROVIDERS: ADMIT Internal Medicine; ATTEND Hospitalist
DX: N39.0 Urinary tract infection, site not specified (principal); Z16.19 Resistance to other specified beta lactam antibiotics; B96.20 Unspecified Escherichia coli [E. coli] as the cause of diseases classified elsewhere; I48.91 Unspecified atrial fibrillation; G40.909 Epilepsy, unspecified, not intractable, without status epilepticus; J44.9 Chronic obstructive pulmonary disease, unspecified; F17.210 Nicotine dependence, cigarettes, uncomplicated; R74.8 Abnormal levels of other serum enzymes; F32.9 Major depressive disorder, single episode, unspecified; R60.0 Localized edema; Z98.84 Bariatric surgery status; Z91.81 History of falling; Z79.1 Long term (current) use of non-steroidal anti-inflammatories (NSAID); Z79.01 Long term (current) use of anticoagulants; Z79.899 Other long term (current) drug therapy; Z88.0 Allergy status to penicillin; Z88.8 Allergy status to other drugs, medicaments and biological substances; Z91.048 Other nonmedicinal substance allergy status; Z91.14 Patient's other noncompliance with medication regimen; Z87.19 Personal history of other diseases of the digestive system
CPT/HCPCS: 12002; 36415; 70450; 80048; 80053; 80076; 80307; 80320; 80329; 81003; 81015; 82140; 82247; 82248; 82550; 83605; 83735; 84484; 85025; 85610; 87077; 87086; 87186; 93005; 94640; 99282; 99283; 99285; A9270-GY; G0378; G0480; G8978-GP-CJ; G8978-GP-CK; G8979-GP-CI; J0696; J1650; J3475; J3535

== ENCOUNTER 2019-04-22 20:36 | Emergency (ER) | payer MEDICARE, MEDICAID ==
[2019-04-22] MEDS ORDERED: NS 0.9% 1000 ML** 1,000 ML IV.FLUID IV ONE ×2 (20:43)
--- NOTE | 2019-04-22 20:44 | ED ---
Abdominal Pain/Female - HPI Summary HPI Summary: This patient is a female brought in by EMS presenting to [facility] [place] accompanied by her daughter with a chief complaint of abdominal pain. She states she has a port in her abdomen that is for biliary fluid. She states she has had discomfort since this morning. Family reports AMS today, stating she has been confused and sleepy throughout the day. Daughter states nausea/vomiting. She says she thinks there may be blockages in the port of her biliary tube. She last had her biliary tube changed 3 weeks ago. Patient is hypotensive as EMS states last BP was 80/56. Patient has a fever in the ED. - History of Current Complaint Stated Complaint: ABD PAIN PER EMS Hx Obtained From: Patient Onset/Duration: Lasting Hours Location: Diffuse Allergies/Adverse Reactions: Allergies Allergy/AdvReac Type Severity Reaction Status Date / Time adhesive tape Allergy Hives Verified 02/27/19 14:08 Penicillins Allergy Anaphylatic Verified 02/27/19 14:08 Shock phenytoin [From Dilantin] Allergy Hives Verified 02/27/19 14:08 Home Medications: Home Medications LevoCETirizine TAB (NF) [Xyzal TAB (NF)] 5 mg PO DAILY 04/22/19 [History Confirmed 04/22/19] Mv-Min/Iron/Folic/Calcium/Vitk [One-A-Day Women's Tablet] 1 tab PO DAILY [History Confirmed 04/22/19] QUEtiapine TAB* [Seroquel 100 MG *] 200 mg PO DAILY 04/22/19 [History Confirmed 04/22/19] Topiramate [Topamax] 100 mg PO QAM 04/22/19 [History Confirmed 04/22/19] Topiramate [Topamax] 150 mg PO BEDTIME 04/22/19 [History Confirmed 04/22/19] PMH/Surg Hx/FS Hx/Imm Hx Endocrine/Hematology History: Denies: Hx Anticoagulant Therapy, Hx Diabetes Cardiovascular History: Reports: Hx Hypertension Respiratory History: Reports: Hx Asthma - USES AN INHLAER, Hx Chronic Obstructive Pulmonary Disease (COPD), Other Respiratory Problems/Disorders - USES O2 2 L CONTINOUS GI History: Denies: Hx Gall Bladder Disease History: Denies: Hx Acute Renal Failure, Hx Chronic Renal Failure, Hx Renal Disease Musculoskeletal History: Reports: Other Musculoskeletal History - weakness, gait problems, falls Sensory History: Reports: Hx Cataracts - CATARACT LEFT EY, Hx Contacts or Glasses, Hx Deafness - Pt cant verify which side is deaf, Hx Hearing Problem - a little hard of hearing Denies: Hx Hearing Aid Opthamlomology History: Reports: Hx Cataracts - CATARACT LEFT EY, Hx Contacts or Glasses Neurological History: Reports: Hx Migraine, Hx Seizures - BRAIN ANEURYSM 1989 Comment Only: Other Neuro Impairments/Disorders - BRAIN ANEURYSM 1989 Psychiatric History: Reports: Hx Anxiety, Hx Substance Abuse - Alcohol abuse - Cancer History Hx Chemotherapy: No Hx Radiation Therapy: No - Surgical History Surgery Procedure, Year, and Place: [facility]LE[facility]STECTOMY [facility], [facility] & A [facility], GASTRIC STAPLE [facility], [facility]BDOMINOPLASTY [facility], BRAIN SURGERY [place] Hx Anesthesia Reactions: No - Immunization History Date of Tetanus Vaccine: PT STATES UNSURE Date of Influenza Vaccine: PT STATES UNSURE - Family History Known Family History: Positive: Other - Breast CA in sister and aunt - Social History Alcohol Use: None Hx Substance Use: No Substance Use Type: Reports: Marijuana Hx Tobacco Use: Yes Smoking Status (MU): Light Every Day Tobacco Smoker Review of Systems - ROS Summary Review of Systems Summary: Metoprolol Succinate XL TAB* [Toprol XL TAB*] 25 mg PO DAILY 09/16/12 [History Confirmed 02/27/19] DULoxetine DR CAP* [Cymbalta CAP*] 120 mg PO DAILY 02/14/19 [History Confirmed 02/27/19] Loperamide CAP* [Imodium CAP*] 2 mg PO TID 02/14/19 [History Confirmed 02/27/19] Meclizine TAB* [Antivert 12.5 TAB*] 25 - 50 mg PO BEDTIME PRN 02/14/19 [History Confirmed 02/27/19] Montelukast Sodium TAB* [Singulair 10 MG TAB*] 10 mg PO DAILY 02/22/19 [History Confirmed 02/27/19] LevoCETirizine TAB (NF) [Xyzal TAB (NF)] 5 mg PO DAILY 04/22/19 [History Confirmed 04/22/19] Mv-Min/Iron/Folic/Calcium/Vitk [One-A-Day Women's Tablet] 1 tab PO DAILY [History Confirmed 04/22/19] QUEtiapine TAB* [Seroquel 100 MG *] 200 mg PO DAILY 04/22/19 [History Confirmed 04/22/19] Topiramate [Topamax] 100 mg PO QAM 04/22/19 [History Confirmed 04/22/19] Topiramate [Topamax] 150 mg PO BEDTIME 04/22/19 [History Confirmed 04/22/19] Positive: Fever Positive: Other - Hypotensive Positive: Abdominal Pain, Vomiting, Nausea Neurological: Other - Altered mental status All Other Systems Reviewed And Are Negative: Yes Physical Exam - Summary Physical Exam Summary: General: Well-developed, Well-nourished FEMALE. No acute distress. Greyish appearing. HEENT: Normocephalic, Atraumatic. Eyes: Conjuctiva normal, PERRL. Oropharynx: Clear, mucous membranes moist, (-) exudates. Neck: Soft, FROM, (-) lymphadenopathy, (-) thyromegaly, (-) JVD. Cardiovascular: Tachycardic, normal rhythm. (-) murmur. Lungs: Clear to auscultation bilaterally (-) wheezes, (-) rales, (-) rhonchi. Decreased breath sounds bilaterally. Abdomen: Soft, no significant tenderness, non-distended, (-) organomegaly, normal bowel sounds. Back: (-) CVA tenderness Extremities: No edema. Skin: Warm, dry, (-) rash. Neuro: Alert and oriented x1 intermittently. Psychiatric: Mood normal, affect normal. Triage Information Reviewed: Yes Vital Signs On Initial Exam: Temp Pulse Resp BP Pulse Ox 102.2 F 116 23 96/50 94 04/22/19 20:38 04/23/19 02:44 04/23/19 02:44 04/23/19 02:49 04/23/19 02:44 Vital Signs Reviewed: Yes Procedures - Sedation Patient Received Moderate/Deep Sedation with Procedure: No Diagnostics - Laboratory Result Diagrams: 04/22/19 23:05 04/22/19 20:53 Lab Statement: Any lab studies that have been ordered have been reviewed, and results considered in the medical decision making process. - Radiology CXR Radiology Interpretation Completed By: ED Physician Summary of Radiographic Findings: No infiltrate, no pleural effusion. Pending official radiologist report. - CT CTA Chest/Abd/Pel CT Interpretation Completed By: Radiologist Summary of CT Findings: 1. Prior gastric surgery as well as a cholecystectomy. External biliary drainage tube placed via subxiphoid approach. Catheter tip is lcoated in the second portion of the duodenum. Biliary air located in both lobes of the liver. Predominantly in the left lobe. No walled off fluid collection within the liver. 2. Inflamation of the head and body of the pancreas. Peripancreatic inflammatory changes. No walled off fluid collection is seen. No distention of the pancreatic duct. 3. Small amount of fluid in the right paracolic gutter and pelvis. ED Provider has reviewed this report. - EKG 2055 Cardiac Rate: Tachycardia - 102 BPM EKG Rhythm: Sinus Tachycardia Summary of EKG Findings: No STEMI. ED Physician has reviewed and interpreted this EKG. Abdominal Pain Fem Course/Dx - Course Course Of Treatment: 63 year old female presents by ambulance from home for confusion. Daughter gives history. Says she found mom was confused today. She is intermittently oriented to person. Patient febrile upon arrival. Tachycardic , meeting sepsis criteria. Patient has a recent Hx of having biliary obstruction and jaundice. Had possible mass in the area, also had biliary drainage tube placed at [facility]. She then had a PET scan which did not highlight any cancer in the biliary or pancreatic area. She did have some areas light up in the colon which will be investigated by colonoscopy. On physical she has some mild abd tenderness to palpation diffusely. Workup demonstrates elevated WBC, low potassium, elevated lactic acid. Her amylase and lipase were reported as <10. Negative for influenza. Urine showed no signs of infection. CT Abd/Pel demonstrated large pulmonary embolus on the right distally and left main pulmonary artery with thrombus as well. NO evidence of right heart strain. Biliary drainage tube is located in the duodenum. Inflammation in the head of the body of the pancreas with inflammatory changes. No signs of abscess or necrosis. Patient initially given aggressive fluid hydration per sepsis protocol and Cefepime, Flagyl, Vancomycin for possible sepsis. Heparin Bolus and Drip were administered for the pulmonary emboli. Potassium initially replaced IV and then PO. ABG unable to obtain. Patients BP gradually dropped over the course of her stay. Transfer process with Transfer Center initiated at 0105. Spoke with Hospitalist who felt patient would be best served in their ICU. Multiple phone calls were made from our transfer center to [facility]. Patient accepted for transfer at 0408. 84/51 is current blood pressure, HR 110 BPM, temp 100.2 F. When patient was accepted for transfer to [facility], ICU step down Dr. Avina. transferred by ambulance. - Diagnoses Provider Diagnoses: Pancreatitis, Pulmonary emboli Discharge ED - Sign-Out/Discharge Documenting (check all that apply): Patient Departure - Transfer to [facility] [address] ICU, accepted by Dr. Avina, Hospitalist - Discharge Plan Condition: Stable Disposition: TRANS HIGHER LVL OF CARE FAC Referrals: Santy Martin MD [Primary Care Provider] - - Billing Disposition and Condition Condition: STABLE Disposition: Trans Higher Lvl of Care Fac - Attestation Statements Document Initiated by Scribe: Yes Documenting Scribe: Lucian Palm Provider For Whom Catarina is Documenting (Include Credential): Hetal Lynn MD Scribe Attestation: Lucian Majano, scribed for Hetal Lynn MD on 04/23/19 at 0434. Scribe Documentation Reviewed: Yes Provider Attestation: The documentation as recorded by the Lucian moore accurately reflects the service I personally performed and the decisions made by , Hetal Lynn MD Status of Scribe Document: Viewed
--- OUTSIDE RECORDS SUMMARY | 2019-04-22 20:54 | XMS REPORT | Summary of Care ---
:1955 Author Organization [facility] Address [address] [facility] [place] [address] Care Team Providers Name Role Phone None, [place] Primary Care Provider Unavailable Reason for Referral MRI/CAT/PET Scan (Routine) Status Reason Specialty Diagnoses / Referred By Referred To Procedures Contact Contact Authorized Diagnoses Painless jaundice Pancreatic neoplasm Amira Yanez Robert Packer Procedures CT ABDOMEN PELVIS PANCREAS BIPHASIC [facility] 1 [facility] [address] [facility] [place] [address] [place] Phone: [phone] Phone: [phone] MRI/CAT/PET Scan (Routine) Status Reason Specialty Diagnoses / Referred By Referred To Procedures Contact Contact Authorized Diagnoses Painless jaundice Pancreatic neoplasm Amira Yanez Robert Packer Procedures CT CHEST WITH IV CONTRAST [facility] 1 [facility] [address] [facility] [place] [address] [place] Phone: [phone] Phone: [phone] Reason for Visit Reason Comments Surgery Consult NEW pancreatic mass Encounter Details Date Type Department Care Team Description 03/31/2019 Office Visit [facility] General Surgery Puma Choi MD Pancreatic neoplasm (Primary Dx); 1 [facility] 1 [facility] Painless jaundice [place] [phone] [place] [address] Allergies Active Allergy Reactions Severity Noted Date Comments Phenytoin Sodium Hives Medium 01/21/2019 Penicillins Cardiac Reaction High 01/21/2019 Per patient heart stopped. documented as of this encounter (statuses as of 04/08/2019) Medications Medication Sig Dispensed Refills Start Date End Date Status albuterol HFA (VENTOLIN Take 2 Puffs by 0 Active HFA) 108 (90 Base) inhalation EVERY MCG/ACT Inhalation Aero FOUR HOURS Soln NEEDED (SOB). quetiapine (SEROQUEL) Take 100 mg by 0 Active 100 MG Oral Tab mouth EVERY BEDTIME. metoprolol succinate Take 25 mg by 0 Active (TOPROL XL) 25 MG Oral mouth DAILY. TABLET SR 24 HR Topiramate 50 MG Oral Take 100 mg by 0 Active Tab mouth EVERY MORNING. Topiramate 50 MG Oral Take 150 mg by 0 Active Tab mouth EVERY BEDTIME. warfarin (COUMADIN) 5 Take 1 Tab by 30 Tab 0 02/04/2019 Active MG Oral Tab mouth DAILY. montelukast (SINGULAIR) Take 10 mg by 0 Active 10 MG Oral Tab mouth DAILY. Levocetirizine Take by mouth. 0 Active Dihydrochloride (XYZAL) 5 MG Oral Tab LOPERAMIDE HCL PO Take 3 Tabs by 0 Active mouth DAILY. MECLIZINE HCL PO Take by mouth 0 Active TWICE DAILY. DULoxetine HCl Take 120 mg by 0 Active (CYMBALTA PO) mouth DAILY. DAILY MULTIPLE VITAMINS Take by mouth 0 Active PO DAILY. documented as of this encounter (statuses as of 04/08/2019) Active Problems Problem Noted Date A-fib 02/17/2019 Encounter for aftercare for long-term (current) use of antibiotics 02/17/2019 Overview: Managed by [facility] Referred by Dr Lucas at [facility] 02/16/19 The indication for anticoagulation is: Atrial fibrillation The therapeutic range should be: 2.0 to 3.0. Additional factors influencing anticoagulation: CHADS2 score of 1 for hypertension [id number] score of 3 for age > 65, hypertension, female gender Topiramate decreases warfarin level Anticoagulant: Warfarin Dehydration 02/15/2019 Septic shock due to Escherichia coli 02/04/2019 Obstructive jaundice 02/04/2019 Ascending cholangitis 02/04/2019 [facility] (current) use of anticoagulants 02/04/2019 Overview: Patient is at [facility] Painless jaundice 01/21/2019 documented as of this encounter (statuses as of 04/08/2019) Immunizations Name Administration Dates Next Due Influenza [...] Sign Reading Time Taken Comments Blood Pressure 124/66 03/31/2019 10:53 AM EST Pulse 110 03/31/2019 10:53 AM EST Temperature 36.4 03/31/2019 10:53 AM C (97.6 EST F) Respiratory Rate 20 03/31/2019 10:53 AM EST Oxygen Saturation 99% 03/31/2019 10:53 AM EST Inhaled Oxygen Concentration - - Weight 62.1 kg (136 lb 14.4 oz) 03/31/2019 10:53 AM EST Height 157.5 cm (5' 2") 03/31/2019 10:53 AM EST Body Mass Index 25.04 03/31/2019 10:53 AM EST documented in this encounter Progress Notes Puma Choi MD - 03/31/2019 10:30 [facility] Pancreatic mass. Obstructive jaundice. Status post percutaneous biliary drainage. Clover Anaya is a 63-y.o. female. Seen today for recommendations in regards to findings consistent with probable pancreatic cancer with obstructive jaundice. She is status post Mao-en-Y gastric bypass many years ago. She presented with obstructive jaundice and weight loss. No pain. Overall history and imaging studies consistent with pancreatic mass probable pancreatic cancer. CA 199 386. We spoke at length about the findings and the likelihood of probable malignancy rationale for considering surgical resection. She would like to go on a trip to [place] see her family which I think is reasonable. But we will see her back after that trip for further surgical discussion and planning for surgery in April for probable Whipple procedure. Puma Choi MD [facility] Chief Surgical Oncology Dir. Gen. Surgery [facility] [place] [phone] During this 20 to 30-minute new patient visit I spent greater than 80% of time [id number] with thepatient reviewing her history, and counseling about the above-noted recommendations.Electronically signed by Puma Choi MD at 04/08 4:15 PM ESTdocumented in this encounter Plan of Treatment Date Type Specialty Care Team Description 04/16/2019 Office Visit Hematology and Oncology Beatriz Calixto MD [address] [place] [address] [phone] 05/12/2019 Appointment Radiology 05/12/2019 Appointment Radiology 05/12/2019 Office Visit General Surgery Puma Choi MD [address] [place] [address] [phone] Name Type Priority Associated Diagnoses Order Schedule CT CHEST WITH IV Imaging Routine Painless jaundice Expected: 03/31/2019, CONTRAST Pancreatic neoplasm Expires: 03/30/2020 CT ABDOMEN PELVIS Imaging Routine Painless jaundice Expected: 03/31/2019, PANCREAS BIPHASIC Pancreatic neoplasm Expires: 03/30/2020 Health Maintenance Due Date Last Done Comments MEDICARE ANNUAL WELLNESS 1955 VISIT DTaP/Tdap/Td Vaccines (1 - 1964 Tdap) DEPRESSION SCREENING 1965 HIV SCREENING 1968 LIPID DISORDER SCREENING 11/15/1971 MAMMOGRAM (SCREENING) 1993 Colonoscopy 11/15/2003 ZOSTER IMMUNIZATION SERIES 11/15/2003 (1 of 2) LUNG CANCER SCREENING 2008 OSTEOPOROSIS SCREENING 2018 PNEUMOCOCCAL 65+YRS (1 of 2 2018 - PCV13) DIABETES SCREENING 04/02/2020 04/02/2019, 02/16/2019, 02/15/2019, Additional history exists FALL RISK ASSESSMENT 04/02/2020 04/02/2019, 04/02/2019 HEPATITIS C SCREENING Completed 01/21/2019 INFLUENZA VACCINE Completed 01/23/2019 HEPATITIS A IMMUNIZATION Aged Out No longer eligible SERIES based on patient's age to complete this topic HPV IMMUNIZATION SERIES Aged Out No longer eligible based on patient's age to complete this topic MENINGOCOCCAL VACCINE IMM Aged Out No longer eligible based on patient's age to complete this topic documented as of this encounter Results Not on filedocumented in this encounter Visit Diagnoses Diagnosis Painless jaundice Pancreatic neoplasm Neoplasm of unspecified nature of digestive system documented in this encounter Insurance Payer Benefit Plan / Subscriber ID Effective Dates Phone Address Type Group MEDICARE MEDICARE PART A xxxxxxxxxxx 1992-Present Medicare & B MEDICAID [facility] xxxxxxxx 2018-Present Medicaid [place] MEDICAID (Work) documented as of this encounter Advance Directives Code Status Date Activated Date Inactivated Comments Full Code 02/15/2019 5:05 AM 03/12/2019 10:36 AM Does the patient have decision making [...]
--- OUTSIDE RECORDS SUMMARY | 2019-04-22 20:54 | XMS REPORT | Summary of Care ---
:1955 Author Organization [facility] Address 1 [facility] [place] [address] Care Team Providers Name Role Phone None, [place] Primary Care Provider Unavailable Reason for Visit Reason Comments Follow Up Encounter Details Date Type Department Care Team Description 04/02/2019 Office Visit [facility] Hematology Beatriz Calixto, Macrocytic anemia (Primary Dx); Oncology Pancreatobiliary-type carcinoma (HCC) [address] [place] [id number] [place] [address] Allergies Active Allergy Reactions Severity Noted Date Comments Phenytoin Sodium Hives Medium 01/21/2019 Penicillins Cardiac Reaction High 01/21/2019 Per patient heart stopped. documented as of this encounter (statuses as of 04/02/2019) Medications Medication Sig Dispensed Refills Start Date [...] as of this encounter (statuses as of 04/02/2019) Active Problems Problem Noted Date A-fib 02/17/2019 Encounter for aftercare for long-term (current) use of antibiotics 02/17/2019 Overview: Managed by [facility] Referred by Dr Lucas at [facility] 02/16/19 The indication for anticoagulation is: Atrial fibrillation The therapeutic range should be: 2.0 to 3.0. Additional factors influencing anticoagulation: CHADS2 score of 1 for hypertension [id number] score of 3 for age > 65, hypertension, female gender Topiramate decreases warfarin level Anticoagulant: Warfarin Dehydration 02/15/2019 Septic shock due to Escherichia coli 02/04/2019 Obstructive jaundice 02/04/2019 Ascending cholangitis 02/04/2019 long-term (current) use of anticoagulants 02/04/2019 Overview: Patient is at [facility] Painless jaundice 01/21/2019 documented as of this encounter (statuses as of 04/02/2019) Immunizations Name Administration Dates Next Due Influenza [...] Sign Reading Time Taken Comments Blood Pressure 92/60 04/02/2019 10:23 AM EST Pulse 95 04/02/2019 10:23 AM EST Temperature 36.7 04/02/2019 10:23 AM EST C (98 F) Respiratory Rate 16 04/02/2019 10:23 AM EST Oxygen Saturation 98% 04/02/2019 10:23 AM EST Inhaled Oxygen Concentration - - Weight 63.6 kg (140 lb 3.2 oz) 04/02/2019 10:23 AM EST Height 157.5 cm (5' 2") 04/02/2019 10:23 AM EST Body Mass Index 25.64 04/02/2019 10:23 AM EST documented in this encounter Patient Instructions Patient InstructionsBeatriz Calixto MD - 04/02/2019 9:00 AM EST We reviewed your recent PET-CT scan, which does not point to any specific areas that are suspicious for malignancy. There is mention of a distinct area in your colon that lit up on your scan, and it would be a good idea to undergo a colonoscopy since you are scheduled for an EGD/EUS on Friday. The EGD/EUS will hopefully be able to visualize your upper GI tract and biliary tract to see if there is a distinct mass/lesion which can be biopsied and establish a diagnosis. ORDERS 1. Please schedule follow up in approximately 2 weeks after EGD/EUS and biopsy results are available. Please don't hesitate to contact the cancer center should you have any questions or concerns! Contact info: Friday-Friday 8AM-5PM [phone] [place] [phone] [place] After hours, weekends, or holidays, call [phone] and ask for the Oncologist seo professional. If you have an acute emergency call 911. documented in this encounter Progress Notes Beatriz Calixto MD - 04/02/2019 9:00 AM EST PATIENT: Clover Anaya : 1955 DATE OF SERVICE: 04/02/2019 REFERRING PRACTITIONER: [place] None PRIMARY CARE PROVIDER: None, [place] Chief Complaint Patient presents with Follow Up REASON FOR REFERRAL: Suspected pancreatobiliary malignancy HISTORY OF PRESENT ILLNESS: Clover Anaya is a pleasant 63-year-old female who is referred to medical oncology as a hospital follow-up to discuss her recent PET CT scan. Please refer to prior medical oncology office visit note foradditional details regarding her history. She is accompanied by her daughter and granddaughter on today's visit. INTERVAL HISTORY: Since her last visit, she was scheduled for an upper endoscopy with endoscopic ultrasound on 03/12, however the procedure was aborted as she had not discontinued her warfarin as instructed. She most recently underwent a PET CT scan on 03/29/2019, which demonstrated a focal area of increased activity in the colon, with possibility of a polypoid lesion, bilateral hilar and mediastinal lymph nodes with FDG uptake of 56 0.5, with possibility of granulomatous lesion, with findings indicative of post procedure changes in her pancreatobiliary region, no concerning FDG avid lesion. She also underwent a CT scan of the abdomen/pelvis pancreatic protocol on 03/25/2019, which demonstrated a pancreatic head mass, nonspecific 2 cm region of enhancement in the density in the pancreatic head adjacent to the confluence of the pancreatic duct and common bile duct, relatively unchanged in size since 02/14/2019, with no regional adenopathy. There is no other findings of adenopathy or metastatic disease. On today's visit, she has had a progressive decline in her functional status with worsening fatigue over the past 2 months. She has a poor appetite, and has lost proximately 18 pounds since the past month or so, which she is slowly regaining back. She currently lives by herself, although has family visits frequently to help with day-to-day chores. She does report ongoing midepigastric pain. Most recently had her biliary stent exchanged on. She uses a walker for ambulation most of the timearound the house, except when she leaves her house, at which time she is wheelchair-bound. ECOG performance status 23 REVIEW OF SYSTEMS: A complete review of [...] UPPER GI; Surgeon: Con Salas MD; Location: [facility] MAIN OR NM GI NUCLEAR PROCEDURE UNLISTED NM NERVOUS SYSTEM SURGERY UNLISTED FAMILY HISTORY: History reviewed. No pertinent family history. SOCIAL HISTORY: Social History Socioeconomic History Marital status: Spouse name: Not on file Number of children: Not on file Years of education: Not on file Highest education level: Not on file Occupational History Not on file Social Needs Financial resource strain: Not on file Food insecurity Worry: Not on file Inability: Not on file Transportation needs Medical: Not on file Non-medical: Not on file Tobacco Use Smoking status: Former Smoker Packs/day: 1.00 Years: 50.00 Pack years: 50.00 Types: Cigarettes Last attempt to quit: 07/20/2018 Years since quittin.7 Smokeless tobacco: Never Used Substance and Sexual Activity Alcohol use: Yes Frequency: Monthly or less Drug use: Not Currently Sexual activity: Not Currently Lifestyle Physical activity Days per week: Not on file Minutes per session: Not on file Stress: Not on file Relationships Social connections Talks on phone: Not on file Gets together: Not on file Attends muslim service: Not on file Active member of club or organization: Not on file Attends meetings of clubs or organizations: Not on file Relationship status: Not on file Intimate partner violence Fear of current or ex partner: Not [...] by inhalation EVERY FOUR HOURS NEEDED (SOB). DAILY MULTIPLE VITAMINS PO Take by mouth DAILY. DULoxetine HCl (CYMBALTA PO) Take 120 mg by mouth DAILY. Levocetirizine Dihydrochloride (XYZAL) 5 MG Oral Tab Take by mouth. LOPERAMIDE HCL PO Take 3 Tabs by mouth DAILY. MECLIZINE HCL PO Take by mouth TWICE DAILY. metoprolol succinate (TOPROL XL) 25 MG Oral TABLET SR 24 HR Take 25 mg by mouth DAILY. montelukast (SINGULAIR) 10 MG Oral Tab Take 10 mg by mouth DAILY. quetiapine (SEROQUEL) 100 [...] stopped. Dilantin [Phenytoin Sodium] Hives VITALS: BP 92/60 (BP Location: Left arm, Patient Position: Sitting) | Pulse 95 | Temp 98 F (36.7 C) (Tympanic) | Resp 16 | Ht 5' 2" (1.575 m) | Wt 140 lb 3.2 oz (63.6 kg) | SpO2 98% | BMI 25.64 kg/m Body mass index is 25.64 kg/m. Physical Exam Constitutional: General: She is not in acute distress. Appearance: She is ill-appearing. She is not toxic-appearing. Comments: Chronically ill-appearing, cachectic, wheelchair-bound Eyes: General: No scleral icterus. Conjunctiva/sclera: Conjunctivae normal. Cardiovascular: Rate and Rhythm: Normal rate. Heart sounds: No murmur. Pulmonary: Effort: Pulmonary effort is normal. No respiratory distress. Breath sounds: No wheezing, rhonchi or rales. Abdominal: General: There is no distension. Palpations: Abdomen is soft. There is no mass. Tenderness: There is abdominal tenderness. Musculoskeletal: Right lower leg: No edema. Left lower leg: No edema. Skin: Findings: No erythema or rash. Neurological: General: No focal deficit present. Mental Status: She is oriented to person, place, and time. Psychiatric: Mood and Affect: Mood normal. Behavior: Behavior normal. IMAGING: CT ABDOMEN PELVIS PANCREAS BIPHASIC Date of service: 03/25/2019 9:38 AM Arterial phase images demonstrate postoperative changes consistent with history of gastric bypass surgery including a Mao-en-Y anastomosis. On external/internal biliary drain extending through the hepatic hilum across the common bile duct and into the duodenum is also demonstrated. The gallbladder is surgically absent. Portal venous phase imaging demonstrate normal enhancement of the intrahepatic and extra hepatic portal veins and symmetrical renal parenchymal enhancement bilaterally. The liver enhances normally. Air in the nondependent left intrahepatic ducts. The common bile duct is distended up to 15 mm. The pancreas demonstrates diffuse irregular dilatation of the main pancreatic duct throughout. The pancreatic head demonstrates ill-defined 2 cm region of decreased enhancement in the pancreatic head with small cystic like changes in the head and adjacent body. The spleen enhances normally with small calcified granulomas. 2 splenic nodules are demonstrated. No abnormal small bowel distention or small bowel wall thickening. Nonspecific mild to moderate colonic distention with solid fecal material without pericolonic edema or fluid to suggest inflammation. Pelvis demonstrates the uterus to be surgically absent. No fluid collection. No bone destructive process. IMPRESSION Pancreatic head demonstrates an indeterminant, nonspecific 2 cm region of decreased parenchymal enhancement in density in the pancreatic head region adjacent to the confluence of the pancreatic duct and common bile duct. This is not increased in size since prior study 02/14/2019, and no regional adenopathy is demonstrated. Differential considerations include postinflammatory changes, or altered vascularity associated with prior surgery. A internal/external biliary drainage catheter is in place as before, with significant biliary and pancreatic duct dilatation suggesting the possibility of catheter dysfunction/obstruction or non-catheter related obstruction. The intrahepatic bile ducts are not abnormally distended. No indication of regional adenopathy or metastatic neoplastic disease. Colonic fecal stasis is present associated with nonspecific mild colonic wall thickening without other findings to suggest acute inflammation or mechanical obstruction. PET CT SKULL TO MID THIGH INITIAL TREATMENT Date of service: 03/29/2019 PET Findings: SUV values given for the lesions are the Max values until otherwise specified. Index lesion or Metastatic disease evaluation is compared to the FDG activity of the hepatic parenchyma and blood pool. Head and Neck: Base of the skull grossly appearing unremarkable. Patient is status post right frontal craniotomy and there are surgical clips identified, and right paracentral location of suprasellar cistern. Physiologic FDG uptake is noted in the salivary glands and tonsillar tissue. Atherosclerotic disease of the carotid bulbs. Heterogeneity is seen of the thyroid gland Chest: The lungs are clear, without evidence of focal airspace consolidation or concerning pulmonary nodule. There are enlarged mediastinal perihilar lymph nodes identified showing abnormal FDG uptake in the appear more confluent with maximum SUV value in 6.5 on the right and 5.1 on the left, seen on transverse image 71 Physiological uptake seen by the myocardium. Atherosclerotic disease of the aorta and coronary artery calcification Abdomen and pelvis: There is some abnormal radiopharmaceutical uptake seen adjacent to the right hepatic internal/external drainage catheter. There is also pneumobilia identified in the left lobe. Increased pharmaceutical activity is seen in the gastric remanent with maximum SUV value of 4.1 and may represent postprocedural change. Multiple surgical clips are identified in the region of left paracentral location of the abdomen. Some pancreatic ductal dilatation without definite focal area of abnormality seen along the pancreatic parenchyma. Adrenal glands appearing unremarkable. Some focal areas of increased radiopharmaceutical activity seen in the colon without definite abnormality except for. Focal area of increased uptake is seen in the region of the ascending colon with maximum SUV of 4.1, best seen on transverse image 122 with some focal wall thickening seen of the colon, this may represents a polypoidal lesion. Other scattered areas of increased radiopharmaceutical uptake are more physiological in nature. Physiologic uptake by the bowel, kidneys and the urinary bladder. Musculoskeletal: Some degenerative changes without evidence of metastatic disease. IMPRESSION Findings as described above are more indicative of postprocedure changes as patient is status post approximately with removal of adhesions 02/01/2019. Focal area of increased radiopharmaceutical seen in colon, are more physiologic in nature, except for a more well-circumscribed area seen in the ascending colon and possibility of a polypoid lesion can't be ruled out. Bilateral perihilar and mediastinal lymph nodes with increased FDG uptake showing a maximum SUV value of 5- 6.5, and possibility of granulomatous lesion in the differential. LABORATORY DATA: Lab Results Component Value Date WBC 13.19 (H) 04/02/2019 HGB 13.7 04/02/2019 HCT 41.5 04/02/2019 PLAT 315 04/02/2019 IMPRESSION/PLAN: ICD-9-CM ICD-10-CM 1. Macrocytic anemia 281.9 D53.9 IRON & TIBC WITH % SATURATION FERRITIN COPPER, SERUM VITAMIN B12 / FOLATE RETICULOCYTE COUNT CBC WITH DIFFERENTIAL COMPREHENSIVE METABOLIC PANEL COMPREHENSIVE METABOLIC PANEL CBC WITH DIFFERENTIAL RETICULOCYTE COUNT VITAMIN B12 / FOLATE COPPER, SERUM FERRITIN IRON & TIBC WITH % SATURATION 2. 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 Reviewed her most recent PET CT scan, which does not demonstrate any suspicious appearing FDG avid lesions in her pancreatobiliary region, although there is mention ofa colonic lesion that may represent a polyp. She was supposed to undergo an upper endoscopy with endoscopic ultrasound on 03/12 which has been rescheduled to 04/06. She was also seen by surgical oncology, the plan was for exploratory laparotomy/ diagnostic laparoscopy for additional evaluation of her adhesions, which has been currently scheduled for May 2019, as the patient is planning to travel to [place], would like to have her surgery done after. Based on her PET CT scan, there is some suspicious findings for a colonic lesion , and it would be reasonable to pursue a colonoscopy while she is planned for an upper endoscopy/EUS next week. Given her recent macrocytic anemia noted on her labs for the past few months, I will plan to obtain some additional blood work including B12, folate, copper, reticulocyte count, and iron studies. She has had a longstanding history of alcohol consumption, which she quit sometime in January, her macrocytosis may be very likely related to longstanding heavy alcohol use. I will plan to follow-up with her tentatively in 2 weeks following her endoscopic studies to review any pathology that might be obtained from her procedure, that may be helpful in establishing a definitive diagnosis. Continue to follow-up with PCP as scheduled for all other chronic medical needs. Follow up: Schedule follow-up here in 2 week(s). Author: Beatriz Calixto MD 04/02/2019 12:20 documented in this encounter Plan of Treatment Date Type Specialty Care Team Description 04/16/2019 Office Visit Hematology and Oncology Beatriz Calixto MD [address] [place] [address] 05/12/2019 Appointment Radiology 05/12/2019 Appointment Radiology 05/12/2019 Office Visit General Surgery Puma Choi MD [address] [place] [address] 05/21/2019 Hospital Encounter [facility] Babatunde Coleman Procedure Ortega Watson MD 1 [place] [address] 05/21/2019 Surgery Acute [facility] JESSE Coleman MD ULTRASOUND/UGI/?ER 1 [place] [id number] 05/21/2019 IPPR Gastroenterology Ortega Coleman MD 1 [place] [address] Name Type Priority Associated Diagnoses Date/Time FERRITIN Lab STAT Macrocytic anemia 04/02/2019 11:19 AM EST COPPER, SERUM Lab STAT Macrocytic anemia 04/02/2019 11:19 AM EST VITAMIN B12 / FOLATE Lab STAT Macrocytic anemia 04/02/2019 11:19 AM EST Name Type Priority Associated Diagnoses Order Schedule FERRITIN Lab STAT Macrocytic anemia Expected: 04/02/2019 (Approximate), Expires: 04/02/2020 COPPER, SERUM Lab STAT Macrocytic anemia Expected: 04/02/2019 (Approximate), Expires: 04/02/2020 VITAMIN B12 / FOLATE Lab STAT Macrocytic anemia Expected: 04/02/2019 (Approximate), Expires: 04/02/2020 Health Maintenance Due Date Last Done Comments [...] Procedure Name Priority Date/Time Associated Comments Diagnosis CBC WITH DIFFERENTIAL STAT 04/02/2019 11:19 Macrocytic anemia Results for this AM EST procedure are in the results section. IRON & TIBC WITH % STAT 04/02/2019 11:19 Macrocytic anemia Results for this SATURATION AM EST procedure are in the results section. COMPREHENSIVE STAT 04/02/2019 11:19 Macrocytic anemia Results for this METABOLIC PANEL AM EST procedure are in the results section. RETICULOCYTE COUNT STAT 04/02/2019 11:19 Macrocytic anemia Results for this AM EST procedure are in the results section. documented in this encounter Results COMPREHENSIVE METABOLIC PANEL (04/02/2019 11:19 AM EST) Sodium 136 134 - 145 mmol/L [facility] Potassium 3.1 (L) 3.5 - 5.1 mmol/L [facility] Chloride 105 98 - 107 mmol/L [facility] CO2 24 22 - 30 mmol/L [facility] Calcium 8.1 (L) 8.3 - 10.1 mg/dl [facility] Albumin 2.6 (L) 3.5 - 5.0 g/dl [facility] BUN 15 7 - 17 mg/dl [facility] Creatinine 0.8 0.7 - 1.2 mg/dl [facility] Glucose 63 (L) 70 - 99 mg/dl [facility] Total Protein 5.4 (L) 6.3 - 8.2 g/dl [facility] Total Bilirubin 0.6 0.0 - 1.1 MG/DL [facility] AST 53 (H) 15 - 46 U/L [facility] ALT 30 9 - 52 U/L [facility] Alkaline 233 (H) 40 - 150 U/L [facility] Phosphatase [facility] eGFR >60 See Interpretation [facility] Comment: Below ml/min/1.73ml GROUP Estimated GFR [...] Study Equation which can be found at: https://www.kidney.org/content/iwnu-xmnjk-uxzhbesj BUN/Creatinine 19 6 - 22 RATIO [facility] Anion Gap 7 3 - 11 mmol/L [facility] A/G Ratio 0.9 0.8 - 2.0 ratio [facility] Specimen Blood - Blood specimen (specimen) Performing Organization Address City/State/Zipcode Phone Number [facility] [address] [facility] [place] [address] [phone] CBC WITH DIFFERENTIAL (04/02/2019 11:19 AM EST) WBC Count 13.19 (H) 3.98 - 10.04 [facility] K/uL LABORATORY RBC Count 4.48 3.93 - 5.22 M/UL [facility] Hemoglobin 13.7 11.2 - 15.7 g/dL [facility] Hematocrit 41.5 34.1 - 44.9 % [facility] MCV 92.6 79.4 - 94.8 FL [facility] MCH 30.6 25.6 - 32.2 PG [facility] MCHC 33.0 32.2 - 35.5 g/dL [facility] Platelet Count 315 182 - 369 K/uL [facility] MPV 9.3 (L) 9.4 - 12.3 FL [facility] RDW 13.3 11.7 - 14.4 % [facility] Neutrophil % 61.3 34.0 - 71.1 % [facility] Lymphocyte % 30.5 19.3 - 51.7 % [facility] Monocyte % 5.5 4.7 - 12.5 % [facility] Eosinophil % 1.7 0.7 - 5.8 % [facility] Basophil % 0.5 0.1 - 1.2 % [facility] nRBC % 0.0 0.0 - 0.2 % [facility] Neutrophil # 8.10 (H) 1.56 - 6.13 K/UL [facility] Lymphocyte # 4.02 (H) 1.18 - 3.74 K/UL [facility] Monocyte # 0.72 0.24 - 0.86 K/UL [facility] Eosinophil # 0.22 0.04 - 0.36 K/UL [facility] Basophil # 0.07 0.01 - 0.08 K/UL [facility] Immature Gran % 0.5 (H) 0.0 - 0.4 % [facility] Immature Gran # 0.06 (H) 0.00 - 0.03 K/uL [facility] NRBC # 0.00 0.00 - 0.12 K/uL [facility] Specimen Blood - Blood specimen (specimen) Performing Organization Address [facility] Phone Number [facility] [address] [place] [address] RETICULOCYTE COUNT (04/02/2019 11:19 AM EST) Reticulocyte % 1.29 0.50 - 1.70 [facility] Reticulocyte Count 0.0578Comment: 0.0164 - [facility] Methodology was 0.0776 M/UL [facility] changed 04/23/2018. Please note updated reference range and units. Specimen Blood - Blood specimen (specimen) Performing Organization Address [facility] Phone Number [facility] [address] [place] [address] IRON & TIBC WITH % SATURATION (04/02/2019 11:19 AM EST) Iron Serum 25 (L) 37 - 170 UG/DL [facility] Iron Binding Capacity 139 (L) 261 - 478 UG/DL [facility] % Saturation 18 (L) 20 - 50 % [place] [employer] Calculation [facility] Specimen Blood - Blood specimen (specimen) Performing Organization Address [facility] Phone Number [facility] [address] [place] [address] documented in this encounter Visit Diagnoses Diagnosis Pancreatic mass Unspecified disease of pancreas Diagnosis Macrocytic anemia Unspecified deficiency anemia Pancreatobiliary-type carcinoma (HCC) documented in this encounter (Work) documented as of this encounter Advance [...]
--- OUTSIDE RECORDS SUMMARY | 2019-04-22 20:54 | XMS REPORT | Summary of Care ---
:1955 Author Organization [facility] Address [address] [facility] [place] [address] Care Team Providers Name Role Phone None, Jellico Primary Care Provider Unavailable Encounter Details Date Type Department Care Team Description 03/31/2019 Hospital Encounter Nicola Hollis MD Outpatient [address] [place] [address] [place] [address] [phone] Allergies Active Allergy Reactions Severity Noted Date [...] use of antibiotics 02/17/2019 Overview: Managed by [facility] Referred by Dr Lucas at [facility] 02/16/19 The indication for anticoagulation is: Atrial fibrillation The therapeutic range should be: 2.0 to 3.0. 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 02/04/2019 Overview: Patient is at [facility] Painless jaundice 01/21/2019 documented as of [...] of this encounter Last Filed Vital Signs Not on filedocumented in this encounter Plan of Treatment Date Type Specialty Care Team Description 04/02/2019 Office Visit Hematology and Oncology Beatriz Calixto MD [address] [place] [address] 04/06/2019 [facility] Gastroenterology Santy Rust MD [address] [place] [address] 04/06/2019 Hospital Encounter Acute Care [facility] Babatunde Rust Procedure MD Santy [address] [place] [address] 04/06/2019 Surgery Acute Care [facility] JESSE Rust MD ULTRASOUND/UGI/?[place] [address] [place] [address] [phone] 05/12/2019 Appointment Radiology 05/12/2019 Appointment Radiology 05/12/2019 Office Visit General Surgery Puma Choi MD [address] [place] [address] [phone] Health Maintenance Due Date Last Done Comments [...] encounter Procedures Procedure Name Priority Date/Time Associated Diagnosis Comments SP BILIARY CATHETER Routine 03/31/2019 1:15 Obstructive jaundice Results for this REPLACEMENT PM EST procedure are in the results section. documented in this encounter Results SP BILIARY CATHETER REPLACEMENT (03/31/2019 1:15 PM EST) Specimen Impressions Performed At Successful exchange of a left internal/external percutaneous biliary drainage catheter. Plan: Routine exchange every 6-8 weeks. The patient complained of pain during the procedure, and may benefit from sedation for all future exchanges. The patient tolerated the procedure well and was discharged in stable condition. Thank you for allowing me to participate in the care of this patient. Signed by Major Godoy MD on 03/31/2019 3:26 PM Narrative Performed At Procedure(s): SP BILIARY CATHETER REPLACEMENT Date of service: 03/31/2019 12:46 PM Clinical Indication: 63-year-old female presents for exchange of left internal/external percutaneous biliary drainage catheter. Procedure and materials: Standard protocol. Physician: Jayne Floyd Medications: Local lidocaine. Fluoroscopy time: 2 minutes and 8 seconds Procedure time: 30 minutes Complications: None Operative Note: After informed consent was obtained, the patient was placed in the supine position on the procedural table. A procedural timeout was performed verifying proper patient, procedure and position. The area around the existing catheter was prepped and draped in sterile fashion. Contrast was injected through the existing catheter demonstrating moderate dilation of the common bile duct and left biliary tree. The catheter was severed near the hub and a Bentson wire was advanced into the small bowel. The catheter had been clearly retracted approximately 10 cm by the location of the suture, therefore to guarantee positioning within the small bowel a 5 Iranian Kumpe catheter was advanced over the wire. The wire was removed and contrast was injected demonstrating appropriate location within the small bowel lumen. The wire was then replaced and a new 10 Iranian internal/external biliary drainage catheter was placed over the wire. The wire and stiffener were removed and the locking loop was formed. Contrast was injected to confirm positioning. The catheter was flushed and secured to the skin with a 2-0 monofilament suture. Findings: Moderate dilation of the biliary ductal system on the left. Procedure Note Interface, Rad Results - 03/31/2019 3:28 PM EST Procedure(s): SP BILIARY CATHETER REPLACEMENT Date of service: 03/31/2019 12:46 PM Clinical Indication: 63-year-old female presents for exchange of left internal/external percutaneous biliary drainage catheter. Procedure and materials: Standard protocol. Physician: Jayne Floyd Medications: Local lidocaine. Fluoroscopy time: 2 minutes and 8 seconds Procedure time: 30 minutes Complications: None Operative Note: After informed consent was obtained, the patient was placed in the supine position on the procedural table. A procedural timeout was performed verifying proper patient, procedure and position. The area around the existing catheter was prepped and draped in sterile fashion. Contrast was injected through the existing catheter demonstrating moderate dilation of the common bile duct and left biliary tree. The catheter was severed near the hub and a Bentson wire was advanced into the small bowel. The catheter had been clearly retracted approximately 10 cm by the location of the suture, therefore to guarantee positioning within the small bowel a 5 Iranian Kumpe catheter was advanced over the wire. The wire was removed and contrast was injected demonstrating appropriate location within the small bowel lumen. The wire was then replaced and a new 10 Iranian internal/external biliary drainage catheter was placed over the wire. The wire and stiffener were removed and the locking loop was formed. Contrast was injected to confirm positioning. The catheter was flushed and secured to the skin with a 2-0 monofilament suture. Findings: Moderate dilation of the biliary ductal system on the left. IMPRESSION Successful exchange of a left internal/external percutaneous biliary drainage catheter. Plan: Routine exchange every 6-8 weeks. The patient complained of pain during the procedure, and may benefit from sedation for all future exchanges. The patient tolerated the procedure well and was discharged in stable condition. Thank you for allowing me to participate in the care of this patient. Signed by Major Godoy MD on 03/31/2019 3:26 PM documented in this encounter Visit Diagnoses Diagnosis Pancreatic mass Unspecified disease of pancreas Diagnosis Obstructive jaundice Other specified disorders of biliary tract documented in this encounter Administered Medications Medication Order MAR Action Action Date Dose Rate Site iohexol 240 MG/ML injectable Given 03/31/2019 1:20 PM EST 14 mL solution 14 mL 14 mL, Intra-catheter, NOW, 1 dose, 03/31/19 at 1320 documented in this encounter (Work) documented as [...]
--- OUTSIDE RECORDS SUMMARY | 2019-04-22 20:55 | XMS REPORT ---
:1955 Author Organization [facility] Care Team Providers Name Role Phone Unavailable Unavailable Unavailable Problems This patient has no known problems. Allergies, Adverse Reactions, Alerts Allergy Name Allergy Status Severity Reaction(s) Onset Inactive Treating Comments Type Date Date Clinician adhesive Unknown Active Unknown Reaction 2018-04 Interface tape Unknown 04-26 aspirin Base Active Unknown Reaction 2018-04 Interface Ingredient Unknown 04-26 Penicillins Unknown Active Unknown Reaction 2018-04 Unknown Unknown -06 phenytoin Base Active Unknown Reaction 2018-04 Interface Ingredient Unknown 04-26 Medications Ordered Filled Start Stop Current Ordering Indication Dosage Frequency Signature Comments Components Medication Medication Date Date Medication? Clinician (SIG) Name Name Albuterol Albuterol No Unknown Unknown Unknown Hfa Hfa 5-29 Inhaler* Inhaler* metoprolol metoprolol No Unknown Unknown Unknown succinate succinate 5-29 ER 25 mg ER 25 mg tablet,exte tablet,exte nded nded release 24 release 24 hr hr Duloxetine Duloxetine 2018-04 Yes Unknown Unknown Unknown Dr Azevedo* Dr Azevedo* 0-27 cyclobenzap cyclobenzap 2018-04 Yes Unknown Unknown Unknown rine 10 mg rine 10 mg 0-27 tablet-TENS tablet-TENS unit-TENS unit-TENS unit unit electrode electrode pads pads loperamide loperamide 2018-04 Yes Unknown Unknown Unknown 2 mg 2 mg 0-27 capsule capsule Procedures This patient has no known procedures. Results This patient has no known results.
--- OUTSIDE RECORDS SUMMARY | 2019-04-22 20:55 | XMS REPORT | Continuity of Care Document ---
:1955 External Reference #:[id number] Author Name Samuel Ford M.D. (transmitted by agent of provider Ana Graff) Address [address] [place] [id number] Care Team Providers Name Role Phone Santy Martin MD - Family Medicine Care Team Information Founder & Ceo Problems Active Problems Provider Date Nonspecific(Abnormal)Findings On Elisa Smith D.O. Onset: 10/04/2011 Radiological,Intrathoracic Difficulty breathing Elisa Smith D.O. Onset: 11/06/2011 Benign essential hypertension Elisa Smith D.O. Onset: 05/13/2012 Essential hypertension Samuel Ford M.D. Onset: 11/10/2015 Social History Type Date Description Comments Sex Unknown ETOH Use Occasionally consumes alcohol Tobacco Use Start: Unknown Patient is a current 1/2 pack daily smoker, smokes every day Smoking Status Reviewed: 12/31/17 Patient is a current 1/2 pack daily smoker, smokes every day Exercise Type/Frequency Exercises sporadically walking 1Xweek Allergies, Adverse Reactions, Alerts Active Allergies Reaction Severity Comments Date Penicillins 09/23/2011 Dilantin rash 09/23/2011 Aspirin rash 09/23/2011 Tape 09/23/2011 Medications Active Medications SIG Qnty Indications Ordering Date Provider Topamax 2 tabs by mouth 150tabs Marge Beckford, 04/16/2017 50mg Tablets every morning M.D. and 3 tabs by mouth every night at bedtime brand medically necessary Metoprolol Succinate take 1 tablet by 90tabs aSmuel Emmanuel 10/26/2012 ER mouth once daily Brand, M.D. 25mg Tablets ER 24HR Cymbalta 2 po qam 30caps Unknown 60mg Caps DR Part Imodium A-D 1 po tid prn Unknown 2mg Chewtabs Flonase 1 spray bid as 1units Unknown 50mcg/Act directed Suspension Multivitamins 1 po qd 100.00tabs Unknown Tablets Ativan 1 tab po bid prn 2tabs Unknown 1mg Tablets ( Told to take instead of seroquel as of 12/31/17 per neurologist) Proair HFA 2 puffs by mouth 1units Unknown 108(90Base) every 4 hours as mcg/Act Aerosol needed Oxygen 3 L qhs, as 1units Unknown Misc needed during day Meclizine HCL Take 1 To 2 Unknown 25mg Tablets AT Tablets Bedtime Until Symptoms Resolve Cyclobenzaprine HCL take 1 tablet Unknown 10mg three times a Tablets day if needed for Muscle Spasm Ibuprofen 1 by mouth three Unknown 600mg Tablets times a day as needed Quetiapine Fumarate As directed ( Unknown 300mg Told to stop Tablets taking today 12/31/17 per nerurologist) Acetaminophen/Codeine Take 1 To 2 Unknown Phosphate Tablets By Mouth 300-30mg Twice A Day as Tablets Needed For Head Pain maxim Xyzbac ( Daily 1 tablet po Unknown Mulitivitamin) daily Tablets Bevespi Aerosphere 2 puffs twice Unknown daily ( replaced 9-4.8mcg/Act Aerosol nebulizer) Immunizations Description No Information Available Vital Signs Date Vital Result Comment 12/31/2017 10:47am Height 63 inches 5'3" Weight 191.00 lb without shoes Heart Rate 96 /min BP Systolic 92 mmHg Rue reg cuff BP Diastolic 60 mmHg Rue reg cuff BP Systolic Sitting 102 mmHg Lue reg cuff BP Diastolic Sitting 60 mmHg Lue reg cuff BP Systolic Standing 110 mmHg Lue reg cuff BP Diastolic Standing 66 mmHg Lue reg cuff Respiratory Rate 16 /min BMI (Body Mass Index) 33.8 kg/m2 Ejection Fraction 55-60% date 08/24/13 ECHO 12/31/2017 8:57am Height 63 inches 5'3" Weight 191.00 lb Heart Rate 88 /min BP Systolic 96 mmHg BP Diastolic 54 mmHg Respiratory Rate 20 /min BMI (Body Mass Index) 33.8 kg/m2 Results Description No Information Available Procedures Description No Information Available Medical Devices Description No Information Available Encounters Type Date Location Provider Dx Diagnosis Office Visit 03/03/2019 [facility] Korey Walsh, N39.0 Urinary tract 1:21p Assoc,pc PA infection, site Hospitalists not specified R29.6 Repeated falls I48.91 Unspecified atrial fibrillation G40.909 Epilepsy, unsp, not intractable, without status epilepticus F32.9 Major depressive disorder, single episode, unspecified Z16.19 Resistance to other specified beta lactam antibiotics Office Visit 03/02/2019 1:19p [facility] Gianna N39.0 Urinary tract Assoc,pc [place], PA-C infection, site Hospitalists not specified I48.91 Unspecified atrial fibrillation R29.6 Repeated falls R60.0 Localized edema G40.909 Epilepsy, unsp, not intractable, without status epilepticus Office Visit 03/01/2019 1:05p [facility] Jesica Jv, N39.0 Urinary tract 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,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, 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 Hospitalists not specified R29.6 Repeated falls I48.91 Unspecified atrial fibrillation Office Visit 02/28/2019 12:57p [facility] Jesica Jv, N39.0 Urinary tract Assoc,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, site Hospitalists not specified I48.91 Unspecified atrial fibrillation R29.6 Repeated falls G40.909 Epilepsy, unsp, not intractable, without status epilepticus J44.1 Chronic obstructive pulmonary disease w (acute) exacerbation Office Visit 02/27/2019 12:54p [facility] Darren Garrido MD R29.6 Repeated falls Assoc,pc Hospitalists G40.909 Epilepsy, unsp, not intractable, without status epilepticus I48.91 Unspecified atrial fibrillation Office Visit 02/24/2019 [facility] Jesica Jv, T42.6x1A Poisoning by oth 9:00a Assoc,pc CLOTHES DRIER REPAIRER antieplptc and Hospitalists sed-hypntc drugs, acc, init G92 Toxic encephalopathy 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 encephalopathy Hospitalists J44.9 Chronic obstructive pulmonary disease, unspecified F32.9 Major depressive disorder, single episode, unspecified E87.6 Hypokalemia I48.91 Unspecified atrial fibrillation G40.909 Epilepsy, unsp, not intractable, without status epilepticus [facility] Weakness Assoc,rachel Rosado M.D. N17.9 Acute kidney failure, unspecified Assessments Date Code Description Provider 03/03/2019 N39.0 Urinary tract infection, site not specified BANDAR Swartz 03/03/2019 R29.6 Repeated falls BANDAR Swartz 03/03/2019 I48.91 Unspecified atrial fibrillation BANDAR Swartz 03/03/2019 G40.909 Epilepsy, unspecified, not intractable, BANDAR Swartz without status epilepticus 03/03/2019 F32.9 Major depressive disorder, single episode, BANDAR Swartz unspecified 03/03/2019 Z16.19 Resistance to other specified beta lactam BANDAR Swartz antibiotics 03/02/2019 N39.0 Urinary tract infection, site not specified Gianna Fleming PA-C 03/02/2019 I48.91 Unspecified atrial fibrillation Gianna Fleming PA-C 03/02/2019 R29.6 Repeated falls Gianna Fleming PA-C 03/02/2019 R60.0 Localized edema Gianna Fleming PA-C 03/02/2019 G40.909 Epilepsy, unspecified, not intractable, Gianna Fleming PA-C without status epilepticus 03/01/2019 N39.0 Urinary tract infection, site not specified Jesica Jv, [employer] DRI[employer] REPAIRER 03/01/2019 R29.6 Repeated falls Jesica Jv, [employer] DRIER REPAIRER 03/01/2019 I48.91 Unspecified atrial fibrillation Jesica Jv, [employer] DRI[employer] REPAIRER 02/28/2019 N39.0 Urinary tract infection, site not specified Jesica Jv, [employer] REPAIRER 02/28/2019 I48.91 Unspecified atrial fibrillation Jesica Jv, [employer] DRI[employer] REPAIRER 02/28/2019 R29.6 Repeated falls Jesica Jv, [employer] REPAIRER 02/28/2019 G40.909 Epilepsy, unspecified, not intractable, Jesica Jv, [employer] D[employer] REPAIRER without status epilepticus 02/28/2019 J44.1 Chronic obstructive pulmonary disease with Jesica Jv, [employer] DRI[employer] REPAIRER (acute) exacerbation 02/27/2019 R29.6 Repeated falls Darren Garrido MD 02/27/2019 G40.909 Epilepsy, unspecified, not intractable, Darren Garrido MD without status epilepticus 02/27/2019 I48.91 Unspecified atrial fibrillation Darren Garrido MD 02/24/2019 T42.6x1A Poisoning by other antiepileptic and Jesica Jv, [employer] REPAIRER sedative-hypnotic drugs, accidental (unintentional), initial encounter 02/24/2019 G92 Toxic encephalopathy Jesica Jv, [employer] D[employer] REPAIRER 02/24/2019 F12.988 Cannabis use, unspecified with other Jesica Jv, [employer] REPAIRER cannabis-induced disorder 02/24/2019 G40.909 Epilepsy, unspecified, not intractable, Jesica Jv, [employer] DRI[employer] REPAIRER without status epilepticus 02/23/2019 G92 Toxic encephalopathy Jesica Jv, [employer] DRI[employer] REPAIRER 02/23/2019 G40.909 Epilepsy, unspecified, not intractable, Jesica Jv, [employer] DRI[employer] REPAIRER without status epilepticus 02/23/2019 I48.91 Unspecified atrial fibrillation Jesica Jv, [employer] DRI[employer] REPAIRER 02/23/2019 J44.9 Chronic obstructive pulmonary disease, Jesica Jv, [employer]OTH[employer] DRI[employer] REPAIRER unspecified 02/22/2019 G93.41 Metabolic encephalopathy Radha Puri M.D. 02/22/2019 J44.9 Chronic obstructive pulmonary disease, Radha Puri M.D. unspecified 02/22/2019 F32.9 Major depressive disorder, single episode, Radha Puri M.D. unspecified 02/22/2019 E87.6 Hypokalemia Radha Puri M.D. 02/22/2019 I48.91 Unspecified atrial fibrillation Radha Puri M.D. 02/22/2019 G40.909 Epilepsy, unspecified, not intractable, Radha Puri M.D. without status epilepticus 02/15/2019 R53.1 Weakness Radha Puri M.D. 02/15/2019 N17.9 Acute kidney failure, unspecified Radha Puri M.D. Plan of Treatment 12/31/2017 - Samuel Ford M.D.I10 Essential (primary) hypertensionFollow up :1 yearR06.00 Dyspnea, vapvywrpacbZ11.6 Repeated falls Functional Status Description No Information Available Mental Status Description No Information Available Referrals Description No Information Available
--- OUTSIDE RECORDS SUMMARY | 2019-04-22 20:55 | XMS REPORT | Summary of Care ---
:1955 Author Organization [facility] Address [address] [place] [address] Care Team Providers Name Role Phone None, Earl Primary Care Provider Unavailable Reason for Referral MRI/CAT/PET Scan (Routine) Status Reason Specialty Diagnoses / Procedures Referred By Contact Referred To Contact Closed Radiology Diagnoses Pancreatobiliary-type carcinoma (HCC) Beatriz Calixto MD [facility] Pet Ct Procedures PET CT SKULL TO MID THIGH INITIAL TREATMENT [address] [facility] [address] [place] [address] [place] [address] Reason for Visit MRI/CAT/PET Scan (Routine) Status Reason Specialty Diagnoses / Procedures Referred By Contact Referred To Contact Closed Radiology Diagnoses Pancreatobiliary-type carcinoma (HCC) Beatriz Calixto MD [facility] Pet Ct Procedures PET CT SKULL TO MID THIGH INITIAL TREATMENT [address] [place] [address] [place] [address] Encounter Details Date Type Department Care Team Description 03/29/2019 Hospital Encounter [facility] PET CT Outpatient [address] [place] [address] Allergies Active Allergy Reactions Severity Noted Date Comments Phenytoin Sodium Hives Medium 01/21/2019 Penicillins Cardiac Reaction High 01/21/2019 Per patient heart stopped. documented as of this encounter (statuses as of 03/31/2019) Medications Medication Sig Dispensed Refills Start Date [...] as of this encounter (statuses as of 03/31/2019) Active Problems Problem Noted Date A-fib 02/17/2019 Encounter for aftercare for long-term (current) use of antibiotics 02/17/2019 Overview: Managed by [facility] Referred by Dr Lucas at [facility] 02/16/19 The indication for anticoagulation is: Atrial fibrillation The therapeutic range should be: 2.0 to 3.0. Additional factors influencing anticoagulation: CHADS2 score of 1 for hypertension [id number] score of 3 for age > 65, hypertension, female gender Topiramate decreases warfarin level Anticoagulant: Warfarin Dehydration 02/15/2019 Septic shock due to Escherichia coli 02/04/2019 Obstructive jaundice 02/04/2019 Ascending cholangitis 02/04/2019 penitentiary (current) use of anticoagulants 02/04/2019 Overview: Patient is at [facility] Painless jaundice 01/21/2019 documented as of this encounter (statuses as of 03/31/2019) Immunizations Name Administration Dates Next Due Influenza [...] Treatment Date Type Specialty Care Team Description 03/31/2019 Office Visit General Surgery Puma Choi MD [address] [place] [address] 04/02/2019 Office Visit Hematology and Oncology Beatriz Calixto MD [address] [address] [phone] Health Maintenance Due Date Last Done Comments [...] Procedure Name Priority Date/Time Associated Diagnosis Comments PET CT SKULL TO MID Routine 03/29/2019 1:46 PM Pancreatobiliary-typ Results for this THIGH INITIAL EST e carcinoma (HCC) procedure are in TREATMENT the results section. documented in this encounter Results PET CT SKULL TO MID THIGH INITIAL TREATMENT (03/29/2019 1:46 PM EST) Specimen Impressions Performed At Findings as described above are more indicative [...] possibility of granulomatous lesion in the differential. Urgency: Routine. This is a routine medical imaging report. Recommendation: No specific imaging recommendation. Signed by Jewell Medina MD, MHA, FCPS on 03/30/2019 3:02 PM Narrative Performed At Procedure(s): PET CT SKULL TO MID THIGH INITIAL TREATMENT Date of service: 03/29/2019 11:25 AM Provided clinical information: 63 years, Female, "marked pancreatobiliary dilatation, suspected pancreatobiliary malignancy, pls evaluate extent of disease" Procedure and materials: Standard protocol. Comparison studies: None. Technique: After an intravenous injection of 12.6 millicuries of F-18 FDG PET imaging of the neck, chest, abdomen and pelvis is performed, approximately after 60 minutes on the Siemens PET/CT scanner. Low dose CT scan was performed for attenuation correction. Data was evaluated with and without attenuation correction in axial, sagittal, and coronal plans. Low dose, non contrast CT does not replace, diagnostic CT with specific imaging protocols for different body parts and indications. Blood sugar level : 85 mg/dL Potential limitations: None Comparison studies: CT chest abdomen pelvis Mediastinal blood pool activity; 2.1 Right lobe of the liver activity ; 2.7 Clinical History: S/P Mao-en-Y Gastric Bypass, with Markedly abnormal appearance of liver, with the remnant stomach, portion of pancreas, and transverse colon densely adherent to the the the left hepatic lobe. S/P adenolysis. PET Findings: SUV values given for the [...] degenerative changes without evidence of metastatic disease. Procedure Note Interface, Rad Results - 03/30/2019 3:04 PM EST Procedure(s): PET CT SKULL TO MID THIGH INITIAL TREATMENT Date of service: 03/29/2019 11:25 AM Provided clinical information: 63 years, Female, "marked pancreatobiliary dilatation, suspected pancreatobiliary malignancy, pls evaluate extent of disease" Procedure and materials: Standard protocol. Comparison studies: None. Technique: After an intravenous injection of 12.6 millicuries of F-18 FDG PET imaging of the neck, chest, abdomen and pelvis is performed, approximately after 60 minutes on the Siemens PET/CT scanner. Low dose CT scan was performed for attenuation correction. Data was evaluated with and without attenuation correction in axial, sagittal, and coronal plans. Low dose, non contrast CT does not replace, diagnostic CT with specific imaging protocols for different body parts and indications. Blood sugar level : 85 mg/dL Potential limitations: None Comparison studies: CT chest abdomen pelvis Mediastinal blood pool activity; 2.1 Right lobe of the liver activity ; 2.7 Clinical History: S/P Mao-en-Y Gastric Bypass, with Markedly abnormal appearance of liver, with the remnant stomach, portion of pancreas, and transverse colon densely adherent to the the the left hepatic lobe. S/P adenolysis. PET Findings: SUV values given for the [...] possibility of granulomatous lesion in the differential. Urgency: Routine. This is a routine medical imaging report. Recommendation: No specific imaging recommendation. Signed by Jewell Medina MD, MHA, FCPS on 03/30/2019 3:02 PM documented in this encounter Visit Diagnoses Diagnosis Pancreatobiliary-type carcinoma (HCC) documented in this encounter [...]
--- OUTSIDE RECORDS SUMMARY | 2019-04-22 20:55 | XMS REPORT ---
:1955 Author Organization [facility] Care Team Providers Name Role Phone Unavailable [...]
--- OUTSIDE RECORDS SUMMARY | 2019-04-22 20:55 | XMS REPORT | Summary of Care ---
:1955 Author Organization [facility] Address [address] [place] [address] Care Team Providers Name Role Phone None, Salyer Primary Care Provider Unavailable Reason for Visit Auth/Cert Status Reason Specialty Diagnoses / Procedures Referred By Referred To Contact Contact Procedures OR ESOPHAGOGASTRODUODENOSCOPY TRANSORAL DIAGNOSTIC OR EGD TRANSORAL BIOPSY SINGLE/MULTIPLE OR EGD INTRMURAL NEEDLE ASPIR/BIOP ALTERED ANATOMY OR EDG US EXAM SURGICAL ALTER STOM DUODENUM/JEJUNUM OR ERCP DX COLLECTION SPECIMEN BRUSHING/WASHING OR ERCP W/BIOPSY SINGLE/MULTIPLE OR ERCP REMOVE CALCULI/DEBRIS BILIARY/PANCREAS DUCT Encounter Details Date Type Department Care Team Description 03/12/2019 Hospital Encounter [facility] Preprocedure Ortega Coleman Short Procedure [address] [place] [address] [address] [phone] [place] [address] [phone] Allergies Active Allergy Reactions Severity Noted Date Comments Phenytoin Sodium Hives Medium 01/21/2019 Penicillins Cardiac Reaction High 01/21/2019 Per patient heart stopped. documented as of this encounter (statuses as of 03/13/2019) Medications Medication Sig Dispensed Refills Start Date [...] as of this encounter (statuses as of 03/13/2019) Active Problems Problem Noted Date A-fib 02/17/2019 Encounter for aftercare for long-term (current) use of antibiotics 02/17/2019 Overview: Managed by [facility] Referred by Dr Lucas at [facility] 02/16/19 The indication for anticoagulation is: Atrial fibrillation The therapeutic range should be: 2.0 to 3.0. Additional factors influencing anticoagulation: CHADS2 score of 1 for hypertension [id number] score of 3 for age > 65, hypertension, female gender Topiramate decreases warfarin level Anticoagulant: Warfarin Dehydration 02/15/2019 Septic shock due to Escherichia coli 02/04/2019 Obstructive jaundice 02/04/2019 Ascending cholangitis 02/04/2019 nursing home (current) use of anticoagulants 02/04/2019 Overview: Patient is at [facility] Painless jaundice 01/21/2019 documented as of this encounter (statuses as of 03/13/2019) Immunizations Name Administration Dates Next Due Influenza [...] Treatment Date Type Specialty Care Team Description 03/16/2019 Office Visit General Surgery Puma Choi MD [address] [place] [address] [phone] Health Maintenance Due Date Last Done Comments [...] Procedure Name Priority Date/Time Associated Diagnosis Comments INR (POCT) Routine 03/12/2019 10:41 AM Results for this EST procedure are in the results section. documented in this encounter Results INR (POCT) (03/12/2019 10:41 AM EST) INR (RALS) 2.2 POINT OF CARE Comment: TESTING Performed at: [facility] POCT Joaquin Melo MD, Laboratory Inspector Material Disposition [address] [place] [address] Specimen Blood - Blood specimen (specimen) Performing Organization Address City/State/Zipcode Phone Number POINT OF CARE TESTING documented in this encounter Insurance Payer Benefit Plan / Subscriber ID Effective Dates Phone Address Type Group MEDICARE MEDICARE PART A xxxxxxxxxxx 1992-Present Medicare & B MEDICAID [facility] xxxxxxxx 2019-Present Medicaid [place] MEDICAID (Work) documented as of this encounter [...]
[2019-04-22 21:11] LABS: ABS Basophils 0.1 10^3/ul (0-0.2); ABS Eosinophils 0.1 10^3/ul (0-0.6); ABS Lymphocytes 2.7 10^3/ul (1.0-4.8); ABS Neutrophils 13.1 10^3/ul (1.5-7.7); Eosinophil % 0.4 %; Hematocrit 42 % (35-47); Hemoglobin 13.9 g/dL (12.0-16.0); Lymphocyte % 16.2 %; Mean Corpuscular HGB Conc 33 g/dL (31-36); Mean Corpuscular Hemoglobin 30 pg (27-31); Mean Corpuscular Volume 90 fL (80-97); Mean Platelet Volume 7.6 fL (7.4-10.4); Nucleated Red Blood Cells % 0.1; Platelet Count 226 10^3/uL (150-450); Red Blood Count 4.67 10^6 /uL (3.70-4.87); Red Cell Distribution Width 15 % (10-15)
[2019-04-22 21:22] LABS: ALT 25 U/L (7-52); AST 25 U/L (13-39); Albumin 2.2 g/dL (3.2-5.2); Alkaline Phosphatase 235 U/L (34-104); Anion Gap 6 mmol/L (2-11); BUN/Creatinine Ratio 10.4 (8-20); Blood Urea Nitrogen 7 mg/dL (6-24); CO2 Carbon Dioxide 26 mmol/L (22-32); Calcium 7.5 mg/dL (8.6-10.3); Chloride 104 mmol/L (101-111); EGFR African American 106.9 (>60); EGFR Non-African American 88.3 (>60); Globulin 2.3 g/dL (2-4); Glucose 113 mg/dL (70-100); Potassium 2.8 mmol/L (3.5-5.0); Sodium 136 mmol/L (135-145); Total Protein 4.5 g/dL (6.4-8.9)
[2019-04-22 21:24] LABS: Troponin I 0.01 ng/mL (<0.03)
[2019-04-22 21:28] LABS: Activated Partial Thrombo Time 43.5 seconds (26.0-38.0); INR 1.25 (0.82-1.09)
[2019-04-22 21:45] LABS: Influenza A Molecular NEGATIVE (Negative); Influenza B Molecular NEGATIVE (Negative)
[2019-04-22 22:37] LABS: Urine Appearance Clear; Urine Bilirubin Negative (Negative); Urine Blood Negative (Negative); Urine Color Amber; Urine Glucose Negative (Negative); Urine Ketones Negative (Negative); Urine Nitrite Negative (Negative); Urine Protein 1+(30 mg/dL) (Negative); Urine Specific Gravity 1.023 (1.010-1.030); Urine Urobilinogen Negative (Negative)
[2019-04-22 22:40] LABS: Urine Bacteria Absent (Absent); Urine Red Blood Cell Trace(0-2/hpf) (Absent); Urine White Blood Cell Trace(0-5/hpf) (Absent)
[2019-04-22] MEDS ORDERED: KCL 10 MEQ/50 ML IVPREMIX* 10 MEQ/50 ML BAG IV SCH (22:40)
[2019-04-22] MEDS ORDERED: metroNIDAZOLE IV 500 MG/100ML* 500 MG/100 ML BAG IVPB ONE (23:05)
[2019-04-22] MEDS ORDERED: Cefepime(*) 2 GM in NS 0.9% 50 ML* 50 ML IVPB ONE (23:05)
[2019-04-22 23:24] LABS: ABS Lymphocytes 2.5 10^3/ul (1.0-4.8); ABS Neutrophils 14.3 10^3/ul (1.5-7.7); Eosinophil % 0.2 %; Hematocrit 42 % (35-47); Hemoglobin 14.1 g/dL (12.0-16.0); Lymphocyte % 13.9 %; Mean Corpuscular HGB Conc 33 g/dL (31-36); Mean Corpuscular Hemoglobin 30 pg (27-31); Mean Corpuscular Volume 89 fL (80-97); Mean Platelet Volume 7.9 fL (7.4-10.4); Nucleated Red Blood Cells % 0.1; Platelet Count 217 10^3/uL (150-450); Red Blood Count 4.77 10^6 /uL (3.70-4.87); Red Cell Distribution Width 15 % (10-15); White Blood Count 17.8 10^3/uL (3.5-10.8)
[2019-04-22] MEDS ORDERED: Iohexol 300* (CONTRAST) 10 ML SDV IV ONE (23:32)
[2019-04-22] MEDS ORDERED: Vancomycin(*) 1,000 MG in NS 0.9% 250 ML* 250 ML IV ONE (23:45)
[2019-04-22] MEDS ORDERED: Cefepime 2 GM in Dextrose(*) 2 GM/50 ML BAG IV ONE (23:45)
[2019-04-22] MEDS ORDERED: Vancomycin(*) 1,000 MG VIAL IVPB SCH (23:45)
[2019-04-23] MEDS ORDERED: Heparin DRIP 25,000 UNITS(*) 25,000 UNITS/500 ML BAG IV SCH ×2 (01:00→02:00)
[2019-04-23 01:07] LABS: Amylase < 10 U/L (29-103)
[2019-04-23] MEDS ORDERED: Potassium Chlor TAB* 20 MEQ TAB.ER PO ONE (01:39)
[2019-04-23] MEDS ORDERED: Heparin VIAL(*) 5000 UNITS/ML VIAL (FIVE THOUSAND) IV SCH (02:00)
[2019-04-23] MEDS ORDERED: [UNRECOGNIZED DRUG - OTHER] IV SCH (02:00)
[2019-04-23] MEDS ORDERED: HEPARIN DRIP IV SCH (02:00)
[2019-04-23] MEDS ORDERED: NS 0.9% 1000 ML** 1,000 ML IV ONE ×2 (03:46→04:47)
[2019-04-23 04:50] VITALS: BP 94/50
== END 2019-04-23 04:54 | disposition short-term general hospital (02) ==
LOC: ED 20:36
DX: K85.90 Acute pancreatitis without necrosis or infection, unspecified (principal); I26.99 Other pulmonary embolism without acute cor pulmonale; R10.84 Generalized abdominal pain; R41.82 Altered mental status, unspecified; R11.2 Nausea with vomiting, unspecified; I95.9 Hypotension, unspecified; R00.0 Tachycardia, unspecified; Z96.89 Presence of other specified functional implants; I10 Essential (primary) hypertension; J44.9 Chronic obstructive pulmonary disease, unspecified; Z99.81 Dependence on supplemental oxygen; Z90.49 Acquired absence of other specified parts of digestive tract; Z98.84 Bariatric surgery status; Z88.0 Allergy status to penicillin; Z88.8 Allergy status to other drugs, medicaments and biological substances; Z91.048 Other nonmedicinal substance allergy status; F17.200 Nicotine dependence, unspecified, uncomplicated
CPT/HCPCS: 36415; 71045; 71260; 74177; 80053; 81003; 81015; 82150; 83605; 83690; 83880; 84484; 85025; 85610; 85730; 87040; 87086; 93005; 96361; 96365; 96366; 99285; A9270-GY; J0692; J1644; J3480; Q9967